=== PATIENT | female | born 2000 | race Caucasian/White ===

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

== ENCOUNTER → 2019-02-14 14:23 | Outpatient (CLI) | payer MEDICAID, SELFPAY ==
[2019-02-13 13:27] VITALS: BMI 40.9
[2019-02-14 14:52] LABS: Bacteria 0 SEEN /hpf (None Seen); Mucous, Urine 0 SEEN /hpf (<or=2+); Red Blood Cells-Urine 0 SEEN /hpf (0-5); White Blood Cells 0 SEEN /hpf (0-5)
[2019-02-14 15:10] LABS: Glucose, Dipstick Normal (Normal); Ketone-Dipstick Negative (Negative); Leukocyte Esterase-Dipstick Negative /ul (Negative); Nitrite-Dipstick Negative (Negative); Occult Blood-Urine Negative /ul (Negative); Protein-Dipstick Negative (Negative); Urine Bilirubin Dipstick Negative (Negative); Urine Urobilinogen Normal (Normal)
[2019-02-14 15:14] LABS: Color, Urine Yellow (Yellow)
[2019-02-14 15:15] LABS: Urine Clarity Clear (Clear)
[2019-02-14 15:23] LABS: Squamous Epithelial Cells - UA 5-10 SEEN /hpf (5-10)
== END ==
PROVIDERS: Referring Provider Physician Assistant Surgical; Visit Provider Physician Assistant Surgical
DX: R10.9 Unspecified abdominal pain (principal)
CPT/HCPCS: 81001; 87086; 87088

== ENCOUNTER 2019-02-15 14:47 | Emergency (ER) | payer MEDICAID, SELFPAY ==
[2019-02-13 13:27] VITALS: BMI 40.9
[2019-02-15 14:48] VITALS: BP 134/74; PULSE 77; RESP 16; TEMP 36.8; O2SAT 99; BMI 40.0
--- NOTE | 2019-02-15 15:09 | ED.VIS.GEN ---
History of Present Illness Chief Complaint: Headache Informant: Patient, Significant Other Onset: Days - Onset of headache Wednesday Context: Gradual Onset Timing: Continuous Quality: Bilateral throbbing head pain Location: Bilateral frontal and parietal Current Severity: Moderate Maximum Severity: Severe Worsened by: Sound Relieved by: Nothing Associated Symptoms: Nausea Narrative: Patient is a 18-year-old woman who presents with bifrontal and biparietal throbbing pain that started Wednesday. The pain is unrelenting. She reports nausea and sonophobia. She states she has history of migraine headaches. She denies double vision, blurred vision or loss of vision. She denies ringing or ears, ear pain or decreased hearing. She denies dental pain. She does report anterior right neck pain. There is no history of trauma. She denies cardiac respiratory symptoms. She denies vomiting or diarrhea. She denies dysuria, frequency, urgency or hematuria. Last normal menses January 14. She states her menstrual cycles are abnormal. She does not report symptoms of . She denies myalgias, arthralgias or back pain. She denies paresthesia, anesthesia motors. She denies problems with balance. She denies problems with speech or swallowing. Prior similar symptoms: Yes Recent Illness/Hospitalization: No - Past Medical History (1) Headache Status: Acute (2) Seasonal allergies Status: Acute Past Medical History - Allergies and Home Meds Allergies/Adverse Reactions: Allergies bee venom protein (honey bee) Allergy (Severe, Verified 02/15/19 14:48) Hives Penicillins Allergy (Verified 02/15/19 14:48) Hives Primary Care Physician: Care Physician,No Primary [Primary Care Provider] - Prior records reviewed: Yes Surgical History: no surgical history Lives: Spouse/ Significant Other Smoking Status: Former smoker Alcohol: None Drugs: None Review of Systems General: Denies: Chills, Fever, Malaise, Subjective, Sweats Eyes: Denies: Visual changes - bilaterally, Blurred Vision - bilaterally, Diplopia ENT: Denies: Bilateral ear pain, Rhinorrhea, Sore throat Cardiovascular: Denies: Chest pain, Palpitations Respiratory: Denies: Dyspnea, Cough, Dyspnea on exertion Gastrointestinal: Reports: Nausea. Denies: Abdominal pain, Vomiting, Diarrhea, Constipation Genitourinary: Denies: Dysuria, Hematuria, Frequency Musculoskeletal: Reports: Neck pain. Denies: Myalgias, Arthralgias, Back pain, Swelling, Extremity Pain Skin: Denies: Rash, Wounds Neurological: Reports: Headache. Denies: Weakness, Numbness Hematologic: Denies: Easy bruising, Easy bleeding Allergy: Denies: Uticaria Physical Exam Vital Signs/Narrative: Vital Signs Temp Pulse Resp BP Pulse Ox 02/15/19 14:48 98.2 F 77 16 134/74 H 99 General: Well nourished, Well developed, No Acute Distress Head: Normocephalic, Atraumatic Eyes: Perrl, EOMI, - - Funduscopic exam reveals normal cup-to-disc ratio with no papilledema and there is no photophobia.. Negative for: Pale conjunctiva, Scleral icterus ENT: Moist mucous membranes, No rhinorrhea, TM's clear Neck: Supple, Nontender, No lymphadenopathy, No JVD Cardiovascular: Regular rate, Regular rhythm, No murmurs, Normal S1, Normal S2 Respiratory: No distress, CTA bilaterally, Chest nontender Abdomen: Soft, Nontender, Nondistended, Normal bowel sounds, No masses Back: Nontender, Normal Inspection Extremities: Nontender, No edema Skin: Normal color, No rash, No Trauma. Negative for: Cyanosis, Diaphoresis, Jaundice Neurological: Alert, Oriented x3, Cranial nerves II-XII grossly intact, Normal Strength, Normal Sensation, Normal DTR, Normal Gait, - - Patient began to laugh during part of the neurologic exam. Psychological: Normal affect Diagnostic/Tx/Re-eval - Medical Decision Making With history of migraine headaches and normal neurologic exam patient was treated with 15 mg of Toradol IV push, 25 mg of Benadryl IV push and 10 mg of Reglan. Imaging was not obtained. Patient was reassessed at 1605. She is smiling. She does appear groggy. This is most likely second Benadryl. She reports 90 to 95% improvement of her headache. She states she feels comfortable going home. ED Disposition - Plan for ED Patient: Disposition: Home or Assisted Living Diagnosis: Headache, migraine, intractable Instructions: ED Headache Migraine Referrals: Care Physician,No Primary [Primary Care Provider] - Salomón Arriola DO [STAFF PHYSICIAN] - 1-2 Weeks
[2019-02-15] MEDS: Ketorolac 30 MG/ML Syringe IV (15:20)
[2019-02-15] MEDS: Metoclopramide 10 MG/2 ML Vial IV (15:20)
[2019-02-15] MEDS: DiphenhydrAMINE 50 MG/ML Syringe 25 MG IV (15:20)
== END 2019-02-15 16:17 | disposition home or self-care (01) ==
PROVIDERS: Emergency Provider Emergency Medicine
DX: G43.919 Migraine, unspecified, intractable, without status migrainosus (principal); Z87.891 Personal history of nicotine dependence
CPT/HCPCS: 96374; 96375; 99283; J7030; A4216

== ENCOUNTER 2019-02-25 13:30 | Emergency (ER) | payer MEDICAID, SELFPAY ==
[2019-02-25 13:32] VITALS: BP 146/94; PULSE 98; RESP 16; TEMP 36.9; O2SAT 97; BMI 38.2
--- NOTE | 2019-02-25 13:43 | RAD_ITS ---
STUDY: X-RAY - LEFT ANKLE REASON FOR EXAM: Female, 18 years old. Twisted ankle TECHNIQUE: 3 view(s) of the ankle. COMPARISON: None. FINDINGS: No definite evidence for an acute fracture or dislocation. Fifth metatarsal base is within normal limits. The anterior process of the calcaneus is within normal limits. IMPRESSION: No evidence for acute fractures or dislocation. Electronically Signed: Lc Cuello, at 14:12 EDT Tel , Service support , RAD/Ankle min 3 Views
--- NOTE | 2019-02-25 13:46 | ED.VISSUMM ---
- ER Visit Summary Date of Service: 02/25/19 Chief Complaint: Left foot and ankle pain History of Present Illness: The patient is a 18 F who fell on 3 basement steps earlier today rolling her left ankle. She has not been able to weight-bear since that time. She denies any other injury from the fall. She did take ibuprofen prior to arrival. Physical Examination: Vital signs unremarkable. Patient sitting upright in bed no acute distress. Left lower extremity examination reveals tenderness of the left ankle, lateral more so than medial. Mild edema is noted. There is no tenderness of the metatarsals. She has strong distal pulses. There is no tenderness at the knee or hip. Test Results: Left ankle x-rays reveal no evidence of fracture. Emergency Department Course and Treatment: Patient already has crutches. She will be given a stirrup splint and may weight-bear as tolerated. She be given a prescription for naproxen. She will be referred to Dr. Arriola to establish primary care if not improving. Treatment Plan: [] Disposition: Discharge Impression: Left ankle sprain This note was generated with [employer] dictation software. It may contain incorrect words, spelling, and punctuation that were not noted in review of the chart prior to signing ED Disposition - Plan for ED Patient: Disposition: Home or Assisted Living Instructions: ED Sprain Ankle W X Ray Prescriptions: Naproxen [Naprosyn] 500 mg PO BID PRN PRN #20 tablet PRN Reason: Pain Referrals: Salomón Arriola DO [STAFF PHYSICIAN] - As Needed
== END 2019-02-25 14:38 | disposition home or self-care (01) ==
PROVIDERS: Emergency Provider Emergency Medicine
DX: S93.402A Sprain of unspecified ligament of left ankle, initial encounter (principal); W10.9XXA Fall (on) (from) unspecified stairs and steps, initial encounter; Y93.9 Activity, unspecified; Y92.9 Unspecified place or not applicable; J45.909 Unspecified asthma, uncomplicated; M19.90 Unspecified osteoarthritis, unspecified site; Z79.899 Other long term (current) drug therapy; Z87.891 Personal history of nicotine dependence
CPT/HCPCS: 73610; 99282

== ENCOUNTER 2019-03-14 12:34 | Emergency (ER) | payer MEDICAID, SELFPAY ==
[2019-03-14 12:35] VITALS: BP 133/93; PULSE 85; RESP 18; TEMP 36.5; O2SAT 97; BMI 39.4
--- NOTE | 2019-03-14 12:54 | ED.VISSUMM ---
- ER Visit Summary Date of Service: 03/14/19 Chief Complaint: Diarrhea History of Present Illness: The patient is a 18 F with diarrhea for the past 5 or 6 days with abdominal cramping. She denies fever or chills. She denies any blood in her stool. She denies any recent travel or antibiotics. She states is been nauseated in the mornings as well and vomited today. Her last menstrual cycle was 2 months ago. She last took her home test a week and a half ago and could not tell if it is positive or negative. Physical Examination: Vital signs unremarkable. Patient sitting upright in bed no acute distress. She is nontoxic-appearing. Head and neck examination normal. Heart is regular rate and rhythm. Lung sounds are clear. Abdomen is soft with minimal mid abdominal tenderness. No guarding or rebound. Active bowel sounds are noted throughout. Test Results: CBC and chemistry studies normal. Urinalysis normal. test is positive. Quant returns at 4855. Emergency Department Course and Treatment: Patient was given IV fluids. She declined anything for nausea while here. Test results were discussed with the patient. She has an appointment with her RETAIL MERCHANDISER TECHNICIAN tomorrow. Treatment Plan: [] Disposition: Discharge Impression: 1. Reported diarrhea 2. First trimester This note was generated with [employer] dictation software. It may contain incorrect words, spelling, and punctuation that were not noted in review of the chart prior to signing ED Disposition - Plan for ED Patient: Disposition: Home or Assisted Living Instructions: , New Dx Referrals: Brady Bazan MD [STAFF PHYSICIAN] - Keep Cruz appointment
[2019-03-14 13:13] LABS: Color, Urine Yellow (Yellow); Glucose, Dipstick Normal (Normal); Ketone-Dipstick Negative (Negative); Leukocyte Esterase-Dipstick Negative /ul (Negative); Mucous, Urine 0 SEEN /hpf (<or=2+); Nitrite-Dipstick Negative (Negative); Occult Blood-Urine Negative /ul (Negative); Protein-Dipstick Negative (Negative); Urine Bilirubin Dipstick Negative (Negative); Urine Clarity Clear (Clear); Urine Urobilinogen Normal (Normal)
[2019-03-14 13:21] LABS: Internal QC Validated? YES +Cl - CLEAR BKGD
[2019-03-14 13:22] LABS: Absolute Lymphocyte Count 1.64 X10^3/ul (0.83-4.51); Absolute Neutrophil Count 4.6 X10^3/uL (2.0-7.7); Basophil# 0.02 X10^3/uL; Basophil% 0.3 % (0-1); Eosinophils% 1.5 % (0-5); Hematocrit 36.6 % (37-47); Hemoglobin 12.1 g/dl (12.0-15.0); Lymphocyte # 1.64 X10^3/ul (4.0); Lymphocyte % 24.2 % (19-41); Mean Corp Hgb Conc 33.1 g/gl (32-36); Mean Corpuscular Hgb 29.7 pg (27.0-32.0); Mean Corpuscular Volume 89.9 fL (81-99); Monocyte# 0.44 X10^3/uL; Monocyte% 6.5 % (0-10); Neutrophil # 4.59 X10^3/uL (2.7-7.7); Neutrophil % 67.5 % (47-70); Platelet Count 209 K/mm3 (150-450); RBC Distribution Width CV 12.7 % (11.6-14.6); RBC Distribution Width SD 41.5 fl (35.1-43.9); Red Blood Count 4.07 M/mm3 (4.2-5.4); White Blood Count 6.8 K/mm3 (4.4-11.0)
[2019-03-14 13:23] LABS: Pregnancy, Serum, hCG Quali. POSITIVE Negative
[2019-03-14 13:26] LABS: POSITIVE COUNT NO; POSITIVE DIFFERENTIAL NO; POSITIVE MORPHOLOGY NO
[2019-03-14 13:26] LABS: Anion Gap 6 (5-15); BUN 12 mg/dL (7-18); BUN/Creat Ratio 13.8 RATIO (10-20); Calcium,Total 9.6 mg/dL (8.5-10.1); Chloride 107 mmol/L (98-107); Creatinine, Serum 0.87 mg/dL (0.55-1.02); EST Glomerular Filtration Rate 89 mL/min (>60); Est Glom Filt Rate - Afr Amer 107 mL/min (>60); Estimated Creatinine Clearance 89.81 ml/min; Glucose 89 mg/dL (74-106); Potassium 3.7 mmol/L (3.5-5.1); Sodium Level 139 mmol/L (136-145)
--- NOTE | 2019-03-14 13:26 | ED.RN ---
LAB CALLED WITH POSITIVE , DR. WALKER INFORMED OF SAME.
[2019-03-14 13:32] LABS: Bacteria RARE /hpf (None Seen); Red Blood Cells-Urine 0-5 SEEN /hpf (0-5); Squamous Epithelial Cells - UA 0-5 SEEN /hpf (5-10); White Blood Cells 0-5 SEEN /hpf (0-5)
[2019-03-14] MEDS: 0.9% Normal Saline 1,000 ML 1000 ML IV (13:47)
[2019-03-14 14:09] LABS: hCG Titer Quant., Serum 4855 mIU/mL (1-3)
[2019-03-14 14:44] VITALS: RESP 14
[2019-03-14 15:10] VITALS: BP 140/73
== END 2019-03-14 15:11 | disposition home or self-care (01) ==
PROVIDERS: Emergency Provider Emergency Medicine
DX: O26.891 Other specified pregnancy related conditions, first trimester (principal); R19.7 Diarrhea, unspecified; Z3A.00 Weeks of gestation of pregnancy not specified
CPT/HCPCS: 80048; 81001; 84702; 84703; 85025; 96360; 99283; J7030; A4216

== ENCOUNTER → 2019-03-15 13:41 | Outpatient (CLI) | payer MEDICAID, SELFPAY ==
[2019-03-14 12:35] VITALS: BMI 39.4
[2019-03-15 17:55] LABS: Chlamydia Trachomatis by PCR Negative (Negative); Neisserai gonorrhoeae by PCR Negative (Negative); Probe Check PASS; Sample Adequacy Control PASS; Specimen Processing Control PASS
== END ==
PROVIDERS: Visit Provider Obstetrics & Gynecology
DX: Z11.3 Encounter for screening for infections with a predominantly sexual mode of transmission (principal)
CPT/HCPCS: 87491; 87591

== ENCOUNTER → 2019-03-30 09:14 | Outpatient (CLI) | payer MEDICAID, SELFPAY ==
[2019-03-14 12:35] VITALS: BMI 39.4
[2019-03-30 10:42] LABS: Color, Urine Yellow (Yellow); Glucose, Dipstick Normal (Normal); Ketone-Dipstick Negative (Negative); Leukocyte Esterase-Dipstick 25 /ul (Negative); Nitrite-Dipstick Negative (Negative); Occult Blood-Urine Negative /ul (Negative); Protein-Dipstick Negative (Negative); Urine Bilirubin Dipstick Negative (Negative); Urine Clarity Clear (Clear); Urine Urobilinogen Normal (Normal)
[2019-03-30 11:11] LABS: Amphetamine Urine VISTA NEGATIVE (<1000 ng/mL); Barbiturate Urine VISTA NEGATIVE (< 200 ng/mL); Benzodiazepine Urine VISTA NEGATIVE (< 200 ng/mL); Cocaine Urine VISTA NEGATIVE (< 300 ng/mL); Ecstacy Urine VISTA NEGATIVE (< 500 ng/mL); Methadone Urine VISTA NEGATIVE (< 300 ng/mL); PCP Urine VISTA NEGATIVE (< 25 ng/mL); THC Urine VISTA POSITIVE (< 50 ng/mL); Thyroid Stim Hormone (TSH) 0.86 uIU/mL (0.358-3.74); Vista UDS pH Range 5
[2019-03-30 11:17] LABS: Absolute Lymphocyte Count 1.58 X10^3/uL (0.83-4.51); Absolute Neutrophil Count 4.6 X10^3/uL (2.0-7.7); Basophil# 0.02 X10^3/uL; Basophil% 0.3 % (0-1); Eosinophil# 0.08 X10^3/uL; Eosinophils% 1.2 % (0-5); Hematocrit 38.4 % (37-47); Hemoglobin 12.6 g/dL (12.0-15.0); Lymphocyte # 1.58 X10^3/ul (4.0); Lymphocyte % 23.6 % (19-41); Mean Corp Hgb Conc 32.8 g/dL (32-36); Mean Corpuscular Hgb 29.9 pg (27.0-32.0); Mean Corpuscular Volume 91.2 fL (81-99); Mean Platelet Vol. 10.3 fl (6.2-12.0); Monocyte# 0.38 X10^3/uL; Monocyte% 5.7 % (0-10); NRBC Flagged by Analyzer 0 % (0-5); Neutrophil # 4.62 X10^3/uL (2.7-7.7); Neutrophil % 68.9 % (47-70); Platelet Count 248 K/mm3 (150-450); RBC Distribution Width CV 12.6 % (11.6-14.6); RBC Distribution Width SD 41.6 fl (35.1-43.9); Red Blood Count 4.21 M/mm3 (4.2-5.4); White Blood Count 6.7 K/mm3 (4.4-11.0)
[2019-03-30 11:52] LABS: HIV - WCH Non-Reactive (Nonreactive); Hepatitis B Surface Antigen Non-Reactive (Nonreactive); Hepatitis C Antibody Non-Reactive (Nonreactive); Rubella IgG 186.7 IU/mL
[2019-03-31 04:56] LABS: Prenatal RPR NONREACTIVE (NONREACTIVE)
== END ==
PROVIDERS: Visit Provider Obstetrics & Gynecology
DX: Z34.81 Encounter for supervision of other normal pregnancy, first trimester (principal)
CPT/HCPCS: 36415; 80307; 81002; 84443; 85025; 86703; 86762; 86803; 87340

== ENCOUNTER → 2019-04-21 15:59 | Outpatient (CLI) | payer MEDICAID, SELFPAY | PROVIDERS: Referring Provider Obstetrics & Gynecology; Visit Provider Obstetrics & Gynecology | DX: O99.89 Other specified diseases and conditions complicating pregnancy, childbirth and the puerperium (principal); R30.0 Dysuria; Z3A.00 Weeks of gestation of pregnancy not specified | CPT/HCPCS: 87086; 87088 ==

== ENCOUNTER 2019-04-23 11:54 | Emergency (ER) | payer MEDICAID, SELFPAY ==
[2019-04-23 11:54] VITALS: BP 146/84; PULSE 78; RESP 16; TEMP 36.6; O2SAT 98; BMI 38.9
--- NOTE | 2019-04-23 12:50 | ED.VISSUMM ---
- ER Visit Summary Date of Service: 04/23/19 Chief Complaint: Nausea and vomiting and dizzy History of Present Illness: The patient is a 19 F who is currently 11 weeks . She is G2, P0 Ab1 with early miscarriage. Patient states her due date 11/08/2019. She is currently seeing Dr. Brady Bazan of [facility]. She states she has had 3-4 episodes of nausea and vomiting for the last 3 to 4 weeks. She feels lightheaded when she stands. She was seen in the office by 1 of the nurses on Wednesday and was told that she was dehydrated. She denies any vaginal bleeding. No fever. No discharge. No abdominal pain. Physical Examination: Well-appearing young female. Vital signs are stable. She is afebrile. She is in no distress. Her initial blood pressure was 146/84. HEENT exam unremarkable. Neck nontender no lymphadenopathy. Lungs clear to auscultation bilaterally. Heart regular rate and rhythm rate about 80 no murmur. Abdomen is soft. Gravid nontender uterus. Normal bowel sounds no peritoneal signs. Patient moving all 4 extremities. Calves are nontender without edema. Neurologically she is awake and alert with no focal motor deficits. Test Results: CBC showed no acute. White count 6 hemoglobin 12. Chemistries normal. Normal creatinine and gap. BUN is 8. UA negative other than ketones. Emergency Department Course and Treatment: Patient clinically mildly dehydrated. She will be treated with p.o. fluids. Nurses were unable to obtain an IV. Currently he did not want any medications for nausea. She has Phenergan at home which she does not believe is working. She is also been on Zofran. Screening labs. Repeat exam patient is doing well at 1600. Discharge to home. She has nausea medications at home. Treatment Plan: Fluids and rest. Nausea medications as needed. Follow-up with [facility]. Disposition: Discharge Impression: Nausea and vomiting approximately 1 week. This note was generated with [employer] software. It may contain incorrect words, spelling, and punctuation that were not noted in review of the chart prior to signing ED Disposition - Plan for ED Patient: Referrals: Care Physician,No Primary [Primary Care Provider] -
[2019-04-23 13:09] LABS: Bacteria 0 SEEN /hpf (None Seen); Mucous, Urine 0 SEEN /hpf (<or=2+); Red Blood Cells-Urine 0 SEEN /hpf (0-5); White Blood Cells 0 SEEN /hpf (0-5)
[2019-04-23 13:15] LABS: Color, Urine Yellow (Yellow); Glucose, Dipstick Normal (Normal); Ketone-Dipstick 15 mg/dl (Negative); Leukocyte Esterase-Dipstick Negative /ul (Negative); Nitrite-Dipstick Negative (Negative); Occult Blood-Urine Negative /ul (Negative); Protein-Dipstick Negative (Negative); Urine Bilirubin Dipstick Negative (Negative); Urine Clarity Clear (Clear); Urine Urobilinogen Normal (Normal)
[2019-04-23 13:24] LABS: Squamous Epithelial Cells - UA 0-5 SEEN /hpf (5-10)
[2019-04-23 14:31] LABS: Absolute Lymphocyte Count 1.81 X10^3/uL (0.83-4.51); Absolute Neutrophil Count 4.3 X10^3/uL (2.0-7.7); Basophil# 0.02 X10^3/uL; Basophil% 0.3 % (0-1); Eosinophil# 0.07 X10^3/uL; Hematocrit 37.1 % (37-47); Hemoglobin 12.3 g/dL (12.0-15.0); Lymphocyte # 1.81 X10^3/ul (4.0); Lymphocyte % 27.1 % (19-41); Mean Corp Hgb Conc 33.2 g/dL (32-36); Mean Corpuscular Volume 90.5 fL (81-99); Mean Platelet Vol. 9.8 fl (6.2-12.0); Monocyte# 0.48 X10^3/uL; Monocyte% 7.2 % (0-10); NRBC Flagged by Analyzer 0 % (0-5); Neutrophil # 4.29 X10^3/uL (2.7-7.7); Neutrophil % 64.3 % (47-70); Platelet Count 230 K/mm3 (150-450); RBC Distribution Width SD 39.9 fl (35.1-43.9); White Blood Count 6.7 K/mm3 (4.4-11.0)
[2019-04-23 14:44] VITALS: BP 133/74; PULSE 83; RESP 16; O2SAT 100
[2019-04-23 15:23] LABS: Anion Gap 6 (5-15); BUN 8 mg/dL (7-18); BUN/Creat Ratio 12.9 RATIO (10-20); Calcium,Total 10.1 mg/dL (8.5-10.1); Chloride 111 mmol/L (98-107); Creatinine, Serum 0.62 mg/dL (0.55-1.02); EST Glomerular Filtration Rate 130 mL/min (>60); Est Glom Filt Rate - Afr Amer 158 mL/min (>60); Estimated Creatinine Clearance 124.99 ml/min; Glucose 71 mg/dL (74-106); Sodium Level 141 mmol/L (136-145)
--- NOTE | 2019-04-23 16:00 | DCINST.ED_ITS ---
ED Disposition - Plan for ED Patient: Disposition: Home or Assisted Living Instructions: VOMITING (5y-Adult) Referrals: Brady Bazan MD [STAFF PHYSICIAN] - As Needed Additional Instructions: Zofran as needed for nausea. Plenty of fluids and rest. Follow-up with your SPLICER APPRENTICE doctor.
[2019-04-23 16:28] VITALS: BP 141/72; PULSE 74; RESP 16; O2SAT 100
== END 2019-04-23 16:29 | disposition home or self-care (01) ==
PROVIDERS: Emergency Provider Emergency Medicine
DX: O21.9 Vomiting of pregnancy, unspecified (principal); F12.90 Cannabis use, unspecified, uncomplicated; O99.321 Drug use complicating pregnancy, first trimester; Z3A.11 11 weeks gestation of pregnancy
CPT/HCPCS: 80048; 81001; 85025; 99283; J7030; A4216

== ENCOUNTER 2019-04-26 14:21 | Emergency (ER) | payer MEDICAID, SELFPAY ==
[2019-04-26 14:22] VITALS: BP 133/75; PULSE 70; RESP 16; TEMP 36.8; O2SAT 95; BMI 38.5
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
[2019-04-26 16:42] VITALS: BP 121/74; PULSE 62; RESP 15; O2SAT 98
== END 2019-04-26 16:43 | disposition home or self-care (01) ==
PROVIDERS: Emergency Provider Emergency Medicine
DX: O99.89 Other specified diseases and conditions complicating pregnancy, childbirth and the puerperium (principal); S30.1XXA Contusion of abdominal wall, initial encounter; S70.12XA Contusion of left thigh, initial encounter; V43.52XA Car driver injured in collision with other type car in traffic accident, initial encounter; Y93.89 Activity, other specified; O99.321 Drug use complicating pregnancy, first trimester; F12.90 Cannabis use, unspecified, uncomplicated; Z3A.12 12 weeks gestation of pregnancy
CPT/HCPCS: 76817; 99283

== ENCOUNTER 2019-05-13 11:13 | Emergency (ER) | payer MEDICAID, SELFPAY ==
[2019-05-13 11:14] VITALS: BP 144/78; PULSE 82; RESP 16; TEMP 36.9; O2SAT 97; BMI 36.8
[2019-05-13] MEDS: 0.9% Normal Saline 1,000 ML 1000 ML IV (11:49)
[2019-05-13] MEDS: Ondansetron 4 MG/2 ML Vial IV (11:49)
[2019-05-13] MEDS: Metoclopramide 10 MG/2 ML Vial IV (11:49)
[2019-05-13 11:53] LABS: Absolute Lymphocyte Count 1.16 X10^3/uL (0.83-4.51); Absolute Neutrophil Count 4.4 X10^3/uL (2.0-7.7); Basophil# 0.01 X10^3/uL; Basophil% 0.2 % (0-1); Eosinophil# 0.03 X10^3/uL; Eosinophils% 0.5 % (0-5); Hematocrit 37.7 % (37-47); Hemoglobin 12.8 g/dL (12.0-15.0); Lymphocyte # 1.16 X10^3/ul (4.0); Lymphocyte % 19.7 % (19-41); Mean Corpuscular Hgb 30.4 pg (27.0-32.0); Mean Corpuscular Volume 89.5 fL (81-99); Mean Platelet Vol. 10.9 fl (6.2-12.0); Monocyte# 0.32 X10^3/uL; Monocyte% 5.4 % (0-10); NRBC Flagged by Analyzer 0 % (0-5); Neutrophil # 4.35 X10^3/uL (2.7-7.7); Platelet Count 250 K/mm3 (150-450); RBC Distribution Width CV 12.4 % (11.6-14.6); RBC Distribution Width SD 40.1 fl (35.1-43.9); Red Blood Count 4.21 M/mm3 (4.2-5.4); White Blood Count 5.9 K/mm3 (4.4-11.0)
[2019-05-13 12:25] LABS: Red Blood Cells-Urine 0 SEEN /hpf (0-5); White Blood Cells 0 SEEN /hpf (0-5)
[2019-05-13 12:27] LABS: Color, Urine Straw (Yellow); Glucose, Dipstick Normal (Normal); Leukocyte Esterase-Dipstick 100 /ul (Negative); Nitrite-Dipstick Negative (Negative); Occult Blood-Urine 10 /ul (Negative); Protein-Dipstick 15 mg/dl (Negative); Specific Gravity, Urine 1.025 (1.002-1.030); Urine Bilirubin Dipstick Negative (Negative); Urine Clarity Sl. Cloudy (Clear); Urine Urobilinogen 1 mg/dl (Normal)
[2019-05-13 12:33] LABS: Ketone-Dipstick 150 mg/dl (Negative)
[2019-05-13 12:36] LABS: Squamous Epithelial Cells - UA 5-10 SEEN /hpf (5-10)
[2019-05-13 12:37] LABS: Bacteria 1+ /hpf (None Seen); Mucous, Urine 1+ /hpf (<or=2+)
[2019-05-13 12:46] LABS: AST(SGOT) 9 U/L (15-37); Alanine Aminotransfer ALT/SGPT 16 U/L (13-56); Albumin, Serum 3.2 g/dL (3.2-5.0); Alkaline Phosphatase 50 U/L (45-117); Anion Gap 4 (5-15); BUN 6 mg/dL (7-18); BUN/Creat Ratio 10.5 RATIO (10-20); Calcium,Total 9.5 mg/dL (8.5-10.1); Chloride 110 mmol/L (98-107); Creatinine, Serum 0.57 mg/dL (0.55-1.02); EST Glomerular Filtration Rate 143 mL/min (>60); Est Glom Filt Rate - Afr Amer 173 mL/min (>60); Estimated Creatinine Clearance 135.95 ml/min; Globulin 3.2 g/dL (2.2-4.2); Glucose 72 mg/dL (74-106); Lipase 60 U/L (73-393); Potassium 3.5 mmol/L (3.5-5.1); Protein, Total 6.4 g/dL (6.4-8.2); Sodium Level 139 mmol/L (136-145)
--- NOTE | 2019-05-13 13:00 | ED.DCSUM_ITS ---
- ER Visit Summary Date of Service: 05/13/19 Chief Complaint: Nausea and vomiting History of Present Illness: The patient is a [address] Bazan. She is a G2, P0 at 14 weeks of . She reports that she has had vomiting throughout her . However, is been worse for the past 3 days. She reports that she is vomited 10-15 times in the past 2 days. No blood or emesis. She reports that she has upper abdominal pain that began this morning. She describes as cramping pain is not a 10 worsened 7-10 currently. Is worsened by movement and relieved by remaining still. Denies any diarrhea. In fact, she reports her last bowel movement was 4 days ago and typically she goes daily. She denies any dysuria or frequency. No vaginal bleeding or discharge. Patient denies any fatty or spicy food intolerance. Physical Examination: Vitals: Stable. Afebrile. General: Well-nourished and well-developed. Head: Normocephalic atraumatic. Neck: Supple, no lymphadenopathy. No JVD. Nontender. Cardiovascular: Regular rate and rhythm. No murmurs. Respiratory: No respiratory distress. Clear to auscultation bilaterally. Abdominal: Soft, mild epigastric tenderness to palpation, nondistended, normal bowel sounds. No guarding, rebound, or peritoneal signs. Gravid uterus. Back: Nontender. Extremities: Nontender, no edema. Skin: Normal color, no rash. Neurologic: Alert and oriented ?3. Cranial nerves II through XII are intact. Normal strength and sensation. Psych: Normal affect. Test Results: Test results show CBC this marked for segment neutrophils of 74. Chem-7 is more for chloride 110, glucose 72, BUN of 6. LFTs show an AST of 9. Lipase is normal. UA shows ketones 1+ bacteria. This was sent for culture. Emergency Department Course and Treatment: Patient was given a liter of normal saline. She was given Zofran and Reglan IV. She is resting much more comfortably. heart tones were 140. Patient reports that she feels much improved and is hungry and would like to go. Treatment Plan: Patient will have Reglan added to her Zofran and Phenergan. Instructed to follow-up with Dr. Bazan in 3 to 5 days if not improving. Return to the emergency department for any worsening symptoms. Disposition: To home in improved and stable condition. Impression: 1. Vomiting. 2. Second trimester . This note was generated with [employer] dictation software. It may contain incorrect words, spelling, and punctuation that were not noted in review of the chart prior to signing ED Disposition - Plan for ED Patient: Disposition: Home or Assisted Living Instructions: Hyperemesis Gravidarum (Severe Morning Sickness) Prescriptions: Metoclopramide [Reglan] 10 mg PO 4X/DAY PRN #20 tab PRN Reason: Headache Prescription Printed Referrals: Brady Bazan MD [STAFF PHYSICIAN] - 3-5 Days
[2019-05-13 13:21] VITALS: BP 120/68; PULSE 75; RESP 18; O2SAT 100
== END 2019-05-13 13:22 | disposition home or self-care (01) ==
LOC: ED 11:32
PROVIDERS: Emergency Provider Emergency Medicine
DX: O21.9 Vomiting of pregnancy, unspecified (principal); O26.892 Other specified pregnancy related conditions, second trimester; R10.10 Upper abdominal pain, unspecified; K59.00 Constipation, unspecified; R51 Headache; Z3A.14 14 weeks gestation of pregnancy
CPT/HCPCS: 80053; 81001; 83690; 85025; 87086; 87088; 96361; 96374; 96375; 99283; J7030; A4216; J2405

== ENCOUNTER → 2019-05-17 11:24 | Outpatient (CLI) | payer MEDICAID, SELFPAY ==
[2019-05-13 11:14] VITALS: BMI 36.8
== END ==
PROVIDERS: Visit Provider Obstetrics & Gynecology
DX: R30.0 Dysuria (principal)
CPT/HCPCS: 87086; 87088

== ENCOUNTER 2019-05-29 08:58 | Emergency (ER) | payer MEDICAID, SELFPAY ==
[2019-05-29 08:59] VITALS: BP 142/92; PULSE 88; RESP 16; TEMP 37; O2SAT 98; BMI 36.8
--- NOTE | 2019-05-29 09:11 | ED.DCSUM_ITS ---
- ER Visit Summary Date of Service: 05/29/19 Chief Complaint: Abdominal pain, back pain History of Present Illness: The patient is a 19 F who has abdominal pain and back pain. This started yesterday and has been ongoing throughout the night as cramping. Nothing makes it better or worse. She is currently 16 weeks gestation. She is G1, P0. She vomited once this morning and had some blood in it so she was concerned. No diarrhea. No urinary symptoms. She has had no vaginal bleeding. She has seen Dr. Bazan for OB and he had her off of work for the past week and half due to low back cramping. She had a monitor at home and said the heart rate was 140 this morning and last night. Physical Examination: Vital signs reviewed. HEENT exam unremarkable. Heart is regular rate and rhythm without murmurs. Lungs are clear to auscultation. Abdomen is soft with suprapubic tenderness to palpation.. Extremities reveal no edema. Skin exam normal. Neurologic exam normal. Test Results: Laboratory studies are unremarkable for chloride of 109. Urinal ysis is no infection. Emergency Department Course and Treatment: I did a bedside ultrasound and it shows good movement with a heart tone of 132. Patient has normal blood work. She will need to follow-up with her OB. Treatment Plan: [] Disposition: Discharge Impression: Abdominal pain, vomiting, This note was generated with [employer] dictation software. It may contain incorrect words, spelling, and punctuation that were not noted in review of the chart prior to signing ED Disposition - Plan for ED Patient: Referrals: Care Physician,No Primary [Primary Care Provider] -
[2019-05-29 10:01] LABS: Color, Urine Yellow (Yellow); Glucose, Dipstick Normal (Normal); Ketone-Dipstick 5 mg/dl (Negative); Leukocyte Esterase-Dipstick 25 /ul (Negative); Nitrite-Dipstick Negative (Negative); Occult Blood-Urine 10 /ul (Negative); Protein-Dipstick 30 mg/dl (Negative); Urine Bilirubin Dipstick Negative (Negative); Urine Clarity Sl. Cloudy (Clear); Urine Urobilinogen Normal (Normal)
[2019-05-29 10:12] LABS: Absolute Neutrophil Count 4.8 X10^3/uL (2.0-7.7); Basophil# 0.02 X10^3/uL; Basophil% 0.3 % (0-1); Eosinophil# 0.07 X10^3/uL; Eosinophils% 1.1 % (0-5); Hematocrit 37.7 % (37-47); Hemoglobin 12.5 g/dL (12.0-15.0); Lymphocyte % 18.8 % (19-41); Mean Corp Hgb Conc 33.2 g/dL (32-36); Mean Corpuscular Hgb 29.9 pg (27.0-32.0); Mean Corpuscular Volume 90.2 fL (81-99); Mean Platelet Vol. 10.2 fl (6.2-12.0); Monocyte# 0.32 X10^3/uL; NRBC Flagged by Analyzer 0 % (0-5); Neutrophil # 4.75 X10^3/uL (2.7-7.7); Neutrophil % 74.5 % (47-70); Platelet Count 201 K/mm3 (150-450); RBC Distribution Width CV 11.9 % (11.6-14.6); Red Blood Count 4.18 M/mm3 (4.2-5.4); White Blood Count 6.4 K/mm3 (4.4-11.0)
[2019-05-29 10:12] LABS: Bacteria 1+ /hpf (None Seen); Mucous, Urine 2+ /hpf (<or=2+); Red Blood Cells-Urine 0-5 SEEN /hpf (0-5); Squamous Epithelial Cells - UA 0-5 SEEN /hpf (5-10); White Blood Cells 0-5 SEEN /hpf (0-5)
[2019-05-29 10:58] VITALS: BP 121/64; PULSE 72; RESP 16; O2SAT 100
[2019-05-29 11:02] LABS: ALB/GLOB Ratio 0.9 RATIO (0.9-2.4); AST(SGOT) 10 U/L (15-37); Alanine Aminotransfer ALT/SGPT 16 U/L (13-56); Albumin, Serum 3.2 g/dL (3.2-5.0); Alkaline Phosphatase 56 U/L (45-117); Anion Gap 7 (5-15); BUN 5 mg/dL (7-18); BUN/Creat Ratio 9.8 RATIO (10-20); Calcium,Total 10.1 mg/dL (8.5-10.1); Chloride 109 mmol/L (98-107); Creatinine, Serum 0.51 mg/dL (0.55-1.02); EST Glomerular Filtration Rate 163 mL/min (>60); Est Glom Filt Rate - Afr Amer 197 mL/min (>60); Estimated Creatinine Clearance 151.94 ml/min; Globulin 3.7 g/dL (2.2-4.2); Glucose 72 mg/dL (74-106); Lipase 58 U/L (73-393); Potassium 3.7 mmol/L (3.5-5.1); Protein, Total 6.9 g/dL (6.4-8.2); Sodium Level 140 mmol/L (136-145)
--- NOTE | 2019-05-29 11:24 | ED.DEP ---
ED Disposition - Plan for ED Patient: Disposition: Home or Assisted Living Instructions: ABDOMINAL PAIN, Unknown Cause, (Female) Referrals: Care Physician,No Primary [Primary Care Provider] -
[2019-05-29 11:39] VITALS: BP 135/71; PULSE 68; RESP 17; O2SAT 99
== END 2019-05-29 11:40 | disposition home or self-care (01) ==
PROVIDERS: Emergency Provider Emergency Medicine
DX: O26.892 Other specified pregnancy related conditions, second trimester (principal); R10.30 Lower abdominal pain, unspecified; O21.9 Vomiting of pregnancy, unspecified; Z3A.16 16 weeks gestation of pregnancy
CPT/HCPCS: 80053; 81001; 83690; 85025; 99285; A4216

== ENCOUNTER 2019-07-23 12:40 | Emergency (ER) | payer MEDICAID, SELFPAY ==
[2019-07-23 12:41] VITALS: BP 133/70; PULSE 78; RESP 17; TEMP 36.7; O2SAT 99; BMI 38.4
[2019-07-23] MEDS: 0.9% Normal Saline 1,000 ML 1000 ML IV (13:41)
[2019-07-23] MEDS: Acetaminophen 325 MG Tablet 650 MG PO (13:42)
[2019-07-23] MEDS: DiphenhydrAMINE 50 MG/ML Syringe 25 MG IV (13:42)
[2019-07-23] MEDS: Metoclopramide 10 MG/2 ML Vial IV (13:42)
[2019-07-23 14:09] LABS: Mucous, Urine 0 SEEN /hpf (<or=2+); Red Blood Cells-Urine 0 SEEN /hpf (0-5)
[2019-07-23 14:17] LABS: Color, Urine Yellow (Yellow); Glucose, Dipstick Normal (Normal); Ketone-Dipstick Negative (Negative); Leukocyte Esterase-Dipstick 25 /ul (Negative); Nitrite-Dipstick Negative (Negative); Occult Blood-Urine Negative /ul (Negative); Protein-Dipstick 15 mg/dl (Negative); Specific Gravity, Urine 1.025 (1.002-1.030); Urine Bilirubin Dipstick Negative (Negative); Urine Clarity Sl. Cloudy (Clear); Urine Urobilinogen Normal (Normal)
[2019-07-23 14:21] LABS: Bacteria RARE /hpf (None Seen); Squamous Epithelial Cells - UA 5-10 SEEN /hpf (5-10)
[2019-07-23 14:22] LABS: White Blood Cells 0-5 SEEN /hpf (0-5)
--- NOTE | 2019-07-23 14:30 | ED.VISSUMM ---
- ER Visit Summary Date of Service: 07/23/19 Chief Complaint: [Headache] History of Present Illness: The patient is a 19 F [presents to the emergency department complaint of a headache that started about noon today. 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 Pain was sharp. Patient and subsequently developed headache and pressure behind her eyes. Patient states that her chest pain is now resolved however she continues to have this headache. Patient is 25 weeks . Patient is G2, P0. She denies any vaginal bleeding. She is feeling the baby move. Patient did have some photophobia associated with a headache. Patient denies any urinary symptoms.] Patient has had prior appendectomy. Physical Examination: [HEENT-PERRLA, EOMI. Cranial nerves II through XII grossly intact. TMs clear. Mucous membranes moist. No adenopathy. Cardiovascular-regular rate and rhythm without murmur or ectopy Lungs-clear to auscultation, chest wall stable without crepitus or subcu emphysema Abdomen-normoactive bowel sounds, soft. Patient has mild tenderness over the suprapubic region. Uterus is gravid and about 5 cm above the umbilicus. Extremities-intact ?4, normal range of motion, normal pulses, atraumatic] Test Results: [ heart tones were 144. Urinalysis was normal.] Emergency Department Course and Treatment: [Patient received a liter normal same fluid bolus as well as Reglan 10 mg IV and Benadryl 25 mill grams IV. Patient received Tylenol 650 mg p.o. and her headache mostly resolved. Patient had no further chest pain while in the emergency department. Patient believes she may have had a small exacerbation of her asthma which she is had in the past.] Treatment Plan: [Case was discussed with DEBONE SUPERVISOR on-call Dr. Ev Arroyo who asked that patient go up to OB so they can monitor the baby for short time.] Disposition: [Discharged to DEBONE SUPERVISOR department] Impression: [Cephalgia-suspect migraine Chest pain-etiology uncertain-resolved Lower abdominal pain] This note was generated with [employer] dictation software. It may contain incorrect words, spelling, and punctuation that were not noted in review of the chart prior to signing ED Disposition - Plan for ED Patient: Referrals: Care Physician,No Primary [Primary Care Provider] -
--- NOTE | 2019-07-23 14:38 | ED.DEP ---
ED Disposition - Plan for ED Patient: Instructions: HEADACHE, Unspecified, CHEST PAIN, Uncertain Cause, ABDOMINAL PAIN, Unknown Cause, (Female) Referrals: Care Physician,No Primary [Primary Care Provider] - Brady Bazan MD [STAFF PHYSICIAN] - 3-5 Days
== END 2019-07-23 14:59 | disposition home or self-care (01) ==
LOC: ED 13:29
PROVIDERS: Emergency Provider Emergency Medicine
DX: O99.89 Other specified diseases and conditions complicating pregnancy, childbirth and the puerperium (principal); R51 Headache; R07.9 Chest pain, unspecified; O26.892 Other specified pregnancy related conditions, second trimester; R10.30 Lower abdominal pain, unspecified; Z3A.25 25 weeks gestation of pregnancy
CPT/HCPCS: 81001; 99282; J7030

== ENCOUNTER 2019-07-23 15:00 | Outpatient (CLI) | payer MEDICAID, SELFPAY ==
[2019-07-23 12:41] VITALS: BMI 38.4
[2019-07-23 15:14] VITALS: BMI 38.6
--- NOTE | 2019-08-01 08:27 | OB.TRI.NOTE ---
- Problem List (1) 24 weeks gestation of Status: Acute History of Present Illness Date of Service: 07/23/19 Was patient seen by the physician?: No Reason For Visit: RULE OUT PRE TERM ABDOMINAL CRAMPING Final ÁNGEL: 11/08/19 Gestational age: 24 Weeks and 4 Days History of Present Illness: 19yo at 24 4/7wga sent from ER for lower abdominal discomfort. Allergies bee venom protein (honey bee) Allergy (Severe, Verified 07/23/19 12:41) Hives Penicillins Allergy (Verified 07/23/19 12:41) Hives - Pertinent Past Medical History Medical History: Past Medical History (Last Reviewed 02/13/19 @ 13:08 by Ale Faye) Arthritis Asthma Shortness of breath history of ear tubes NST - FHR Rate Baby A Baseline: 140 Variability:: Minimal Accelerations:: None Decelerations:: Variable NST Reactive:: Appropriate for gestational age FHR Category:: Category II Uterine Activity:: none Impression/Plan False labor < 37wga -dc home
== END 2019-07-23 15:30 | disposition home or self-care (01) ==
PROVIDERS: Referring Provider Obstetrics & Gynecology; Visit Provider Obstetrics & Gynecology
DX: O47.02 False labor before 37 completed weeks of gestation, second trimester (principal); O99.89 Other specified diseases and conditions complicating pregnancy, childbirth and the puerperium; R51 Headache; R07.9 Chest pain, unspecified; Z3A.25 25 weeks gestation of pregnancy
CPT/HCPCS: 59050; 81001; 99218; 99282; J7030; G0378

== ENCOUNTER 2019-08-06 17:50 | Outpatient (CLI) | payer MEDICAID, SELFPAY ==
[2019-08-06 18:23] VITALS: BMI 38.4
--- NOTE | 2019-08-09 18:15 | OB.TRI.NOTE ---
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; denies VB, LOF, CORDERO, RUQ pain or visual changes; Allergies bee venom protein (honey bee) Allergy (Severe, Verified 07/23/19 12:41) Hives Penicillins Allergy (Verified 07/23/19 12:41) Hives - Pertinent Past Medical History Medical History: Past Medical History (Last Reviewed 02/13/19 @ 13:08 by Ale Faye) Arthritis Asthma Shortness of breath history of ear tubes NST - FHR Rate Baby A Baseline: 145 Variability:: Moderate Accelerations:: 10 x 10 Decelerations:: None, Variable NST Reactive:: Yes, Appropriate for gestational age FHR Category:: Category II Uterine Activity:: None Impression/Plan Impression: 19yo at 26w4d gestation by 8w1d US Round ligament pain Cat 2 FHTs, reassuring, appropriate for gestational age Plan: Discharge home with PTL precautions, increased fluids and rest; frequent rest periods at work
== END 2019-08-06 19:05 | disposition home or self-care (01) ==
LOC: WPOUT 18:07 → WP 18:07
PROVIDERS: Visit Provider Advanced Practice Midwife
DX: O26.892 Other specified pregnancy related conditions, second trimester (principal); R10.30 Lower abdominal pain, unspecified; Z3A.26 26 weeks gestation of pregnancy

== ENCOUNTER 2019-08-11 09:14 | Outpatient (CLI) | payer MEDICAID, SELFPAY ==
[2019-08-11 10:33] VITALS: BMI 39.3
[2019-08-11 13:25] LABS: Amphetamine Urine VISTA NEGATIVE (<1000 ng/mL); Barbiturate Urine VISTA NEGATIVE (< 200 ng/mL); Benzodiazepine Urine VISTA NEGATIVE (< 200 ng/mL); Cocaine Urine VISTA NEGATIVE (< 300 ng/mL); Ecstacy Urine VISTA NEGATIVE (< 500 ng/mL); Methadone Urine VISTA NEGATIVE (< 300 ng/mL); PCP Urine VISTA NEGATIVE (< 25 ng/mL); THC Urine VISTA NEGATIVE (< 50 ng/mL); Vista UDS pH Range 6
--- NOTE | 2019-08-11 14:21 | OB.TRI.NOTE ---
History of Present Illness Date of Service: 08/11/19 Was patient seen by the physician?: Yes Reason For Visit: FALL Date of Service: 08/11/19 Final ÁNGEL: 11/08/19 Final ÁNGEL Source: US <20 weeks Gestational age: 27 Weeks and 2 Days History of Present Illness: Pt states her bedroom is upstairs and the bathroom is downstairs; on the way to the bathroom this morning she lost her footing and fell on her bottom down about 6 steps; she did not hit her abdomen; she complains of soreness in her lower back and R hip; denies VB or LOF, and states active FM Allergies bee venom protein (honey bee) Allergy (Severe, Verified 07/23/19 12:41) Hives Penicillins Allergy (Verified 08/11/19 10:34) Vomiting - Pertinent Past Medical History Medical History: Past Medical History (Last Reviewed 02/13/19 @ 13:08 by Ale Faye) Arthritis Asthma Shortness of breath history of ear tubes Laboratory Studies: Laboratory Tests 08/11/19 Range/Units 12:45 Urine Opiates Screen NEGATIVE (< 300 ng/mL) Urine Methadone Screen NEGATIVE (< 300 ng/mL) Ur Barbiturates Screen NEGATIVE (< 200 ng/mL) Ur Phencyclidine Scrn NEGATIVE (< 25 ng/mL) Ur Amphetamines Screen NEGATIVE (<1000 ng/mL) U Methamphetamin-MDMA NEGATIVE (< 500 ng/mL) U Benzodiazepines Scrn NEGATIVE (< 200 ng/mL) Urine Cocaine Screen NEGATIVE (< 300 ng/mL) U Cannabinoids Screen NEGATIVE (< 50 ng/mL) Ur Drug Screen Comment Physical Exam Vitals: AVSS General: Alert, Oriented x3, Cooperative, No apparent distress HEENT: PERRLA, EOMI Cardiovascular: Regular rate, Regular Rhythm Lungs: Clear to auscultation, Normal air movement Abdomen: Bowel Sounds Present, Soft, Non Tender, Non-Distended, Passing Flatus, Gravid Extremities:: Deep tendon reflexes - 2+ bilaterally lower extremities Neurological: Cranial nerves II-XII grossly intact, Deep Tendon Reflexes 2+/4 and Symmetrical, Neuro grossly intact Estimated gestational size: Appropriate for gestational size Presentation: Unable to assess NST - FHR Rate Baby A Baseline: 145 Variability:: Moderate Accelerations:: 15 x 15, 10 x 10 Decelerations:: Variable NST Reactive:: Yes, Appropriate for gestational age FHR Category:: Category II - Reassurring, appropriate for gestational age Uterine Activity:: None Impression/Plan Impression: 19yo at 27w2d gestation by 8w1d US s/p minor fall w/o VB or LOF, with active FM, A pos, antibody neg blood Physical exam negative for injury; utox negative Cat 2 FHTs, reassuring, appropriate for gestational age Plan: Extended monitoring completed Utox negative Discussed safety measures with patient and SO Tylenol, rest, hot water bottle for minor discomfort Work release through 07-14-2019 Discharge home with PTL precautions, FM awareness, increased rest and fluids; Dr. Bazan aware
== END 2019-08-11 13:30 | disposition home or self-care (01) ==
LOC: WPOUT 09:26 → WP 10:11
PROVIDERS: Referring Provider Advanced Practice Midwife; Visit Provider Advanced Practice Midwife
DX: O99.89 Other specified diseases and conditions complicating pregnancy, childbirth and the puerperium (principal); M54.5 Low back pain; M25.551 Pain in right hip; W10.8XXA Fall (on) (from) other stairs and steps, initial encounter; Z3A.27 27 weeks gestation of pregnancy
CPT/HCPCS: 59025; 59050; 80307; 99218; G0378

== ENCOUNTER → 2019-08-17 10:06 | Outpatient (CLI) | payer MEDICAID, SELFPAY ==
[2019-08-11 10:33] VITALS: BMI 39.3
[2019-08-17 11:03] LABS: Hematocrit 34.8 % (37-47); Hemoglobin 11.5 g/dL (12.0-15.0); Mean Corpuscular Hgb 30.1 pg (27.0-32.0); Mean Corpuscular Volume 91.1 fL (81-99); Mean Platelet Vol. 10.2 fl (6.2-12.0); Platelet Count 220 K/mm3 (150-450); RBC Distribution Width CV 12.9 % (11.6-14.6); RBC Distribution Width SD 42.5 fl (35.1-43.9); Red Blood Count 3.82 M/mm3 (4.2-5.4); White Blood Count 8.7 K/mm3 (4.4-11.0)
[2019-08-17 11:14] LABS: Glucose Challenge Gest 1H 50g 102 mg/dL (70-140)
== END ==
PROVIDERS: Visit Provider Obstetrics & Gynecology
DX: Z34.83 Encounter for supervision of other normal pregnancy, third trimester (principal)
CPT/HCPCS: 36415; 82950; 85027

== ENCOUNTER 2019-08-19 13:20 | Outpatient (CLI) | payer MEDICAID, SELFPAY ==
[2019-08-19 13:39] VITALS: BMI 39.8
[2019-08-19 14:11] LABS: ROM Internal Control Test YES-OK TO RESULT pt. (Internal QC); ROM Patient Test Negative (Negative)
--- NOTE | 2019-08-19 17:41 | OB.TRI.NOTE ---
History of Present Illness Date of Service: 08/19/19 Was patient seen by the physician?: Yes Reason For Visit: RULE OUT ROM Date of Service: 08/19/19 Final ÁNGEL Source: US <20 weeks History of Present Illness: Pt states she felt a gush of fluid when standing up; it didn't feel as if it was urine; states active FM, denies VB Allergies bee venom protein (honey bee) Allergy (Severe, Verified 08/19/19 13:39) Hives Penicillins Allergy (Verified 08/19/19 13:39) Vomiting - Pertinent Past Medical History Medical History: Past Medical History (Last Reviewed 02/13/19 @ 13:08 by Ale Faye) Arthritis Asthma Shortness of breath history of ear tubes Laboratory Studies: Laboratory Tests 08/19/19 Range/Units 13:44 Vag Amniotic Fld Detect Negative (Negative) Physical Exam General: Alert, Oriented x3, Cooperative, No apparent distress HEENT: PERRLA, EOMI Cardiovascular: Regular rate, Regular Rhythm Lungs: Clear to auscultation, Normal air movement Abdomen: Bowel Sounds Present, Soft, Non Tender, Non-Distended, Passing Flatus, Gravid Extremities:: No edema Neurological: Cranial nerves II-XII grossly intact, Deep Tendon Reflexes 2+/4 and Symmetrical, Neuro grossly intact NST - FHR Rate Baby A Baseline: 145 Variability:: Moderate Accelerations:: 15 x 15, 10 x 10 Decelerations:: None NST Reactive:: Yes, Appropriate for gestational age FHR Category:: Category II - reassuring, appropriate for gestational age Uterine Activity:: None Impression/Plan Impression: 19yo at 28w3d gestation by 8w1d US R/O ROM, ROM+ negative Cat 2 FHTs, appropriate for gestational age, reassuring Plan: Discharge home with PTL precautions, FM awareness, increased rest and fluids RTO next scheduled PNV
== END 2019-08-19 14:40 | disposition home or self-care (01) ==
LOC: WPOUT 13:28 → WP 13:29
PROVIDERS: Referring Provider Advanced Practice Midwife; Visit Provider Advanced Practice Midwife
DX: O47.03 False labor before 37 completed weeks of gestation, third trimester (principal); Z3A.28 28 weeks gestation of pregnancy
CPT/HCPCS: 59025; 59050; 84112; 99218; G0378

== ENCOUNTER 2019-08-20 19:15 | Emergency (ER) | payer MEDICAID, SELFPAY ==
[2019-08-19 13:39] VITALS: BMI 39.8
[2019-08-20 19:17] VITALS: BP 133/66; PULSE 91; PULSE 94; RESP 17; RESP 19; TEMP 36.6; O2SAT 97; O2SAT 98; BMI 39.6
--- NOTE | 2019-08-20 19:49 | ED.VIS.GEN ---
History of Present Illness Chief Complaint: Shortness of Breath Informant: Patient Onset: Today Narrative: Patient states that this morning she woke with a slight headache, sore throat, and a sensation that she was losing her voice. She also notes now her chest feels sore to touch feels like she has a pressure. She is 28 weeks . 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 G1, P0. No reported fevers. No rashes. No nausea vomiting diarrhea. No significant cough. Past Medical History - Allergies and Home Meds Allergies/Adverse Reactions: Allergies bee venom protein (honey bee) Allergy (Severe, Verified 08/20/19 19:17) Hives Penicillins Allergy (Verified 08/20/19 19:17) Vomiting Primary Care Physician: Salomón Arriola DO [Primary Care Provider] - Surgical History: no surgical history Smoking Status: Never smoker Review of Systems General: Denies: Chills, Fever, Sweats Eyes: Denies: Visual changes - bilaterally, Diplopia ENT: Reports: Sore throat. Denies: Bilateral ear pain, Left ear pain, Right ear pain, Rhinorrhea Cardiovascular: Reports: Chest pain. Denies: Palpitations Respiratory: Denies: Dyspnea, Cough, Dyspnea on exertion Gastrointestinal: Denies: Abdominal pain, Nausea, Vomiting, Diarrhea, Melena, Hematochezia Genitourinary: Denies: Dysuria, Hematuria, Frequency Musculoskeletal: Denies: Back pain, Extremity Pain Skin: Denies: Rash, Wounds Neurological: Denies: Headache, Weakness, Numbness Psych: Denies: Depression, Anxiety, Suicidal thoughts, Suicidal ideations Endocrine: Denies: Polyuria, Polydipsia, Heat intolerance, Cold intolerance Hematologic: Denies: Easy bruising, Easy bleeding, Lymphadenopathy Allergy: Denies: Uticaria, Swelling of the mouth, Swelling of the tongue Physical Exam Vital Signs/Narrative: Vital Signs Temp Pulse Resp BP Pulse Ox 08/20/19 19:17 97.9 F 91 19 H 133/66 H 97 General: Well nourished, Well developed, No Acute Distress Head: Normocephalic, Atraumatic Eyes: Perrl, EOMI ENT: Moist mucous membranes, No rhinorrhea, - - Patient has cobblestoning of the posterior pharynx.. Negative for: Dry mucous membranes, Nasal congestion Neck: Supple, Nontender Cardiovascular: Regular rate, Regular rhythm, No murmurs Respiratory: No distress, CTA bilaterally, Chest nontender, Chest tenderness - Mild anterior chest wall tenderness that reproduces her chest pain. This is located over the costochondral border. Abdomen: Soft, Nontender, Nondistended, Normal bowel sounds, - - There is a gravid uterus Back: Nontender, Normal Inspection Extremities: Nontender, No edema Skin: Normal color, No rash Neurological: Alert, Oriented x3, Cranial nerves II-XII grossly intact, Normal Strength, Normal Sensation Psychological: Normal affect, Normal Mood Diagnostic/Tx/Re-eval - EKG Initial EKG Interpretation: Sinus Rhythm - Sinus rhythm at a rate of 86 without concerning features of ACS. No ectopy. - Medical Decision Making Patient has a reported sore throat has cobblestoning of the posterior pharynx. Give her a dose of Decadron. Believe her chest pain is most likely due to costochondritis. Decadron should help this. I did also recommend Tylenol. Patient was advised to monitor for fever return if worsening or concerns follow-up with GRAVITY PROSPECTING OPERATOR HELPER at her next appointment is scheduled. ED Disposition - Plan for ED Patient: Disposition: Home or Assisted Living Instructions: URI, Viral, No Abx (Adult), CHEST WALL PAIN, Costochondritis Referrals: Salomón Arriola DO [Primary Care Provider] - As Needed
[2019-08-20] MEDS: dexAMETHasone 4 MG Tablet 10 MG PO (19:53)
[2019-08-20 19:58] VITALS: BP 122/68
--- NOTE | 2019-08-20 20:08 | EKG12_ITS ---
Test Reason : DYSRHYTHMIA Blood Pressure : / mmHG Vent. Rate : 086 BPM Atrial Rate : 086 BPM P-R Int : 154 ms QRS Dur : 084 ms QT Int : 352 ms P-R-T Axes : 071 068 017 degrees QTc Int : 421 ms Normal sinus rhythm Normal ECG Confirmed by SID YANEZ, SOBEIDA ([id number]), publications editor GAVINO AQUINO ([id number]) on 08/23/2019 11:37:45 AM Referred By: Confirmed By:SOBEIDA LAU MD
== END 2019-08-20 19:59 | disposition home or self-care (01) ==
PROVIDERS: Emergency Provider Emergency Medicine; Family Provider Family Medicine; PCP Family Medicine
DX: O99.89 Other specified diseases and conditions complicating pregnancy, childbirth and the puerperium (principal); J02.9 Acute pharyngitis, unspecified; R06.02 Shortness of breath; R07.89 Other chest pain; R51 Headache; Z3A.28 28 weeks gestation of pregnancy
CPT/HCPCS: 93005; 99283

== ENCOUNTER 2019-09-02 00:15 | Outpatient (CLI) | payer MEDICAID, SELFPAY ==
[2019-09-02 01:40] VITALS: BMI 40.1
[2019-09-02 02:21] LABS: Color, Urine Yellow (Yellow); Glucose, Dipstick Normal (Normal); Ketone-Dipstick Negative (Negative); Leukocyte Esterase-Dipstick Negative /ul (Negative); Nitrite-Dipstick Negative (Negative); Occult Blood-Urine Negative /ul (Negative); Protein-Dipstick Negative (Negative); Urine Bilirubin Dipstick Negative (Negative); Urine Clarity Cloudy (Clear); Urine Urobilinogen Normal (Normal)
--- NOTE | 2019-09-16 08:47 | OB.TRI.HP_ITS ---
History of Present Illness Date of Service: 09/02/19 Was patient seen by the physician?: No Reason For Visit: R/O labor Final ÁNGEL: 11/08/19 Final ÁNGEL Source: US <20 weeks Gestational age: 30 w 3 d History of Present Illness: c/o contractions Allergies bee venom protein (honey bee) Allergy (Severe, Verified 08/20/19 19:17) Hives latex Allergy (Verified 09/02/19 01:58) Other Penicillins Allergy (Verified 08/20/19 19:17) Vomiting - Pertinent Past Medical History Medical History: Past Medical History (Last Reviewed 02/13/19 @ 13:08 by Ale Faye) Arthritis Asthma Shortness of breath history of ear tubes Laboratory Studies: Laboratory Tests 09/02/19 Range/Units 02:05 Urine Color Yellow (Yellow) Urine Clarity Cloudy (Clear) Urine pH 6.0 (5.0 - 8.0) Ur Specific [place] 1.020 (1.002-1.030) Urine Protein Negative (Negative) mg/dl Urine Glucose (UA) Normal (Normal) mg/dl Urine Ketones Negative (Negative) mg/dl Urine Occult Blood Negative (Negative) /ul Urine Nitrite Negative (Negative) Urine Bilirubin Negative (Negative) mg/dL Urine Urobilinogen Normal (Normal) mg/dl Ur Leukocyte Esterase Negative (Negative) /ul NST - FHR Rate Baby A Baseline: 130 Variability:: Moderate Accelerations:: 15 x 15 Decelerations:: None NST Reactive:: Yes FHR Category:: Category I Uterine Activity:: 0/10 Impression/Plan False labor, Cat I FHR -d/c home
== END 2019-09-02 02:45 | disposition home or self-care (01) ==
LOC: WPOUT 00:53 → WP 00:59
PROVIDERS: Family Provider Family Medicine; PCP Family Medicine; Referring Provider Obstetrics & Gynecology; Visit Provider Obstetrics & Gynecology
DX: O47.03 False labor before 37 completed weeks of gestation, third trimester (principal); Z3A.30 30 weeks gestation of pregnancy; Z88.0 Allergy status to penicillin; Z91.040 Latex allergy status
CPT/HCPCS: 59025; 59050; 81002; 99218; G0378

== ENCOUNTER 2019-09-30 19:00 | Outpatient (CLI) | payer MEDICAID, SELFPAY ==
[2019-09-30 19:46] VITALS: BMI 40.8
[2019-09-30 20:14] LABS: Mucous, Urine 0 SEEN /hpf (<or=2+)
[2019-09-30 20:22] LABS: Color, Urine Yellow (Yellow); Glucose, Dipstick 50 mg/dl (Normal); Ketone-Dipstick Negative (Negative); Leukocyte Esterase-Dipstick 25 /ul (Negative); Nitrite-Dipstick Negative (Negative); Occult Blood-Urine 10 /ul (Negative); Protein-Dipstick Negative (Negative); Specific Gravity, Urine 1.015 (1.002-1.030); Urine Bilirubin Dipstick Negative (Negative); Urine Clarity Sl. Cloudy (Clear); Urine Urobilinogen Normal (Normal)
[2019-09-30 20:34] LABS: Bacteria RARE /hpf (None Seen); Red Blood Cells-Urine 0-5 SEEN /hpf (0-5); Squamous Epithelial Cells - UA 0-5 SEEN /hpf (5-10); White Blood Cells 0-5 SEEN /hpf (0-5)
--- NOTE | 2019-09-30 20:35 | OB.TRI.NOTE ---
- Problem List (1) 34 weeks gestation of Status: Acute (2) Uterine contractions at greater than 20 weeks of gestation Status: Acute History of Present Illness Date of Service: 09/30/19 Was patient seen by the physician?: Yes Reason For Visit: R/O LABOR Date of Service: 09/30/19 Final ÁNGEL: 11/08/19 Final ÁNGEL Source: US <20 weeks Gestational age: 34 Weeks and 3 Days History of Present Illness: Woke up last night with scant brown vaginal discharge and cramps. Throughout the course of the day cramps became more regular like contractions. At 1630 reports contractions were felt every 8-10 minutes and still having scant brown discharge. Arrived to to rule out pre-term labor. Allergies bee venom protein (honey bee) Allergy (Severe, Verified 09/30/19 19:51) Anaphylaxis latex Allergy (Verified 09/30/19 19:51) Rash Penicillins Allergy (Verified 09/30/19 19:51) Vomiting - Pertinent Past Medical History Medical History: Past Medical History (Last Reviewed 02/13/19 @ 13:08 by Ale Faye) Arthritis Asthma Shortness of breath history of ear tubes Laboratory Studies: Laboratory Tests 09/30/19 Range/Units 20:00 Urine Color Yellow (Yellow) Urine Clarity Sl. Cloudy (Clear) Urine pH 7.0 (5.0 - 8.0) Ur Specific [place] 1.015 (1.002-1.030) Urine Protein Negative (Negative) mg/dl Urine Glucose (UA) 50 H (Normal) mg/dl Urine Ketones Negative (Negative) mg/dl Urine Occult Blood 10 H (Negative) /ul Urine Nitrite Negative (Negative) Urine Bilirubin Negative (Negative) mg/dL Urine Urobilinogen Normal (Normal) mg/dl Ur Leukocyte Esterase 25 H (Negative) /ul Urine RBC 0-5 SEEN (0-5) /hpf Urine WBC 0-5 SEEN (0-5) /hpf Ur Squamous Epith Cells 0-5 SEEN (5-10) /hpf Urine Bacteria RARE (None Seen) /hpf Urine Mucus 0 SEEN (<or=2+) /hpf Review of Systems Constitutional: Denies: Chills, Fever, Weight Change HEENT: Denies: Head Aches, Sinus Congestion, Sinus Drainage Cardiovascular: Denies: Chest Pain, Palpitations Respiratory: Denies: Cough, Shortness of breath at rest, Sputum production Gastrointestinal: Reports: Abdominal Pain - cramping like pain. Denies: Nausea, Vomiting Genitourinary: Denies: Dysuria Gynecological: Reports: Vaginal discharge - brown scant when wiping Musculoskeletal: Denies: Joint Pain, Joint Tenderness Skin: Denies: Rash, Wounds Neurological: Denies: Numbness, Tingling, Focal weakness Psychiatric: Denies: Anxiety, Depression, Homicidal Ideations, Suicidal Ideations Hematologic/ Lymphatic: Denies: Easy Bruising, Easy Bleeding Physical Exam General: Alert, Oriented x3, No apparent distress HEENT: Atraumatic, Normocephalic. 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 Negative for: Vulvar lesions NST - FHR Rate Baby A Baseline: 130 Variability:: Moderate Accelerations:: 15 x 15 Decelerations:: None NST Reactive:: Yes FHR Category:: Category I Uterine Activity:: Irregular Q6-8 minutes Impression/Plan A: 34 weeks gestation SVE per RN .5/thick/mid. Scant brown discharge on glove after cervical check NST baseline 130, +accels, - decels, moderate variability, reactive, Category I tracing UC irregular Q6-8 minutes, palpating mild Admits to not eating anything today d/t cramps, likely dehydrated BPs were elevated, but when using a large cuff now WNL P: Monitor for two hours to get repeat SVE Urine Analysis culture to be sent Observation status
--- NOTE | 2019-09-30 22:27 | PCM.PN.BLA ---
Progress Note S: Per RN notes resting with no needs O: VSS. NST baseline 135, + accels, - decels, moderate variability UC 2-6 minutes irregular SVE by RN cl/thick/high UA +glucose, +occult, + leuks A: No cervical change noted with SVE Category I NST +UA and dehydration, likely cause of uterine irritability P: Rx for Keflex 500mg Q6H x 5D Encourage oral hydration Encourage kick counts Pre-labor education given To follow up in office as needed
== END 2019-09-30 23:00 | disposition home or self-care (01) ==
LOC: WPOUT 19:08 → WP 19:08
PROVIDERS: PCP Family Medicine; Visit Provider Obstetrics & Gynecology
DX: O26.893 Other specified pregnancy related conditions, third trimester (principal); N89.8 Other specified noninflammatory disorders of vagina; Z3A.34 34 weeks gestation of pregnancy
CPT/HCPCS: 59025; 59050; 81001; 99218; G0378

== ENCOUNTER 2019-10-04 17:40 | Outpatient (CLI) | payer MEDICAID, SELFPAY ==
[2019-10-04 18:05] VITALS: BMI 41.3
--- NOTE | 2019-10-04 21:28 | OB.TRI.HP_ITS ---
History of Present Illness Date of Service: 10/04/19 Was patient seen by the physician?: Yes Reason For Visit: R/O LABOR, R/O VAGINAL LEFTY Date of Service: 10/04/19 Final ÁNGEL: 11/08/19 Final ÁNGEL Source: US <20 weeks Gestational age: 35 Weeks and 0 Days History of Present Illness: Pt c/o contractions w/light pink spotting on tissue after toileting at at home; denies itching or burning, but has been on Keflex since Wednesday with 2 days remaining on rx; states just a few minutes ago in hospital noticed bright red spotting on tissue after toileting; Allergies bee venom protein (honey bee) Allergy (Severe, Verified 10/04/19 18:08) Anaphylaxis latex Allergy (Verified 10/04/19 18:08) Rash Penicillins Allergy (Verified 10/04/19 18:08) Vomiting - Pertinent Past Medical History Medical History: Past Medical History (Last Reviewed 02/13/19 @ 13:08 by Ale Faye) Arthritis Asthma Shortness of breath history of ear tubes Physical Exam General: Alert, Oriented x3, Cooperative, No apparent distress HEENT: PERRLA, EOMI Cardiovascular: Regular rate, Regular Rhythm Lungs: Clear to auscultation, Normal air movement Abdomen: Bowel Sounds Present, Soft, Non Tender, Non-Distended, Passing Flatus, Gravid, Obese Neurological: Cranial nerves II-XII grossly intact, Deep Tendon Reflexes 2+/4 and Symmetrical, Neuro grossly intact SEARCH COORDINATOR: Normal external genitalia - internally cevical irritation noted w/sporatic curdy discharge Estimated gestational size: Appropriate for gestational size Presentation: Cephalic Cervix Dilation (cm): 0.5 - externally; unable to reach internal os Effacement (%): 0 - thick, unable to reach internal os NST - FHR Rate Baby A Baseline: 125 Accelerations:: 15 x 15 Decelerations:: None NST Reactive:: Yes, Appropriate for gestational age FHR Category:: Category I Uterine Activity:: Q 3-5 with irritability Impression/Plan Impression: 19yo at [id number] gestation by L=6w0d US r/o labor vs. vaginal lefty vs bacterial vaginosis Cat 1 FHTs No cervical change at this time Plan: Wet prep, vaginal culture for BV done PO hydration Continuous EFM Will recheck cervix in 2 hours
[2019-10-04] MEDS: Miconazole-7 Nitrate Cream 1 APPLIC VAGINAL (23:57)
--- NOTE | 2019-10-05 00:59 | OB.TRI.PN ---
Progress Notes Date of Service: 10/04/19 Progress Note: This is a late entry for 10/04/19, 2350 S: Continues to feel contractions O: Wet prep negative for Ning or BV Cervical irritation and white, curd-like discharge noted by this provider at previous speculum exam FHTs: 120 baseline, moderate variability, + accels, no decels UCs: Irritability pattern with occasional UCs Cervix: 0.5/thick/high, soft, anterior, no change noted A: Uterine irritability Ning by clinical exam Cat 1 FHTs P: Monistat 7, 1 applicator Q HS x 7 days, first dose this evening in hospital Discharge home with FM counts, increased rest and fluids, and pelvic rest RTO for next scheduled PNV tomorrow
== END 2019-10-05 00:10 | disposition home or self-care (01) ==
LOC: WPOUT 17:56 → WP 17:57
PROVIDERS: PCP Family Medicine; Visit Provider Advanced Practice Midwife
DX: O26.853 Spotting complicating pregnancy, third trimester (principal); Z3A.35 35 weeks gestation of pregnancy; Z88.0 Allergy status to penicillin; Z91.040 Latex allergy status; O99.511 Diseases of the respiratory system complicating pregnancy, first trimester; J45.909 Unspecified asthma, uncomplicated; M19.90 Unspecified osteoarthritis, unspecified site
CPT/HCPCS: 59025; 59050; 87205; 99218; G0378

== ENCOUNTER → 2019-10-13 10:23 | Outpatient (CLI) | payer MEDICAID, SELFPAY ==
[2019-10-04 18:05] VITALS: BMI 41.3
== END ==
PROVIDERS: Visit Provider Obstetrics & Gynecology
DX: Z34.83 Encounter for supervision of other normal pregnancy, third trimester (principal); Z36.85 Encounter for antenatal screening for Streptococcus B
CPT/HCPCS: 87081

== ENCOUNTER 2019-10-17 18:00 | Outpatient (CLI) | payer MEDICAID, SELFPAY ==
[2019-10-17 18:53] VITALS: BMI 24.3
[2019-10-17 19:12] LABS: Hematocrit 35.3 % (37-47); Hemoglobin 11.5 g/dL (12.0-15.0); Mean Corp Hgb Conc 32.6 g/dL (32-36); Mean Corpuscular Hgb 28.8 pg (27.0-32.0); Mean Corpuscular Volume 88.3 fL (81-99); Mean Platelet Vol. 10.3 fl (6.2-12.0); Platelet Count 253 K/mm3 (150-450); RBC Distribution Width CV 12.9 % (11.6-14.6); RBC Distribution Width SD 41.6 fl (35.1-43.9); White Blood Count 10.2 K/mm3 (4.4-11.0)
[2019-10-17 19:18] LABS: Protein, Urine (Random) 20.9 mg/dL (<11.9); Protein:Creat Ratio 252 mg/g CRE (0-200)
[2019-10-17 19:20] LABS: AST(SGOT) 6 U/L (15-37); Alanine Aminotransfer ALT/SGPT 13 U/L (13-56); Creatinine, Serum 0.52 mg/dL (0.55-1.02); EST Glomerular Filtration Rate 158 mL/min (>60); Est Glom Filt Rate - Afr Amer 192 mL/min (>60); Estimated Creatinine Clearance 149.02 ml/min; Prothrombin Time (Protime)PT. 12.7 SECONDS (11.7-14.9); Uric Acid 1.9 mg/dL (2.6-6.0)
[2019-10-17 19:21] LABS: Partial Thromboplast Time 26.2 Seconds (24.1-36.2)
--- NOTE | 2019-10-17 19:41 | OB.TRI.NOTE ---
- Problem List (1) 36 weeks gestation of Status: Acute (2) Right upper quadrant abdominal pain affecting Status: Acute (3) Edema during Status: Acute History of Present Illness Date of Service: 10/17/19 Was patient seen by the physician?: Yes Reason For Visit: ADB PAIN Date of Service: 10/17/19 Final ÁNGEL: 11/08/19 Final ÁNGEL Source: US <20 weeks Gestational age: 36 Weeks and 6 Days Allergies bee venom protein (honey bee) Allergy (Severe, Verified 10/17/19 18:44) Anaphylaxis latex Allergy (Verified 10/17/19 18:44) Rash Penicillins Allergy (Verified 10/17/19 18:44) Vomiting - Pertinent Past Medical History Medical History: Past Medical History (Last Reviewed 02/13/19 @ 13:08 by Ale aFye) Arthritis Asthma Shortness of breath history of ear tubes Laboratory Studies: Laboratory Tests 10/17/19 10/17/19 10/17/19 Range/Units 18:50 18:50 18:50 WBC (4.4-11.0) K/mm3 RBC (4.2-5.4) M/mm3 Hgb (12.0-15.0) g/dL Hct (37-47) % MCV (81-99) fL MCH (27.0-32.0) pg MCHC (32-36) g/dL RDW Std Deviation (35.1-43.9) fl RDW Coeff of Jennie (11.6-14.6) % Plt Count (150-450) K/mm3 MPV (6.2-12.0) fl PT 12.7 (11.7-14.9) SECONDS INR 1.0 APTT 26.2 (24.1-36.2) Seconds Creatinine 0.52 L (0.55-1.02) mg/dL Estim Creat Clear Calc 149.02 ml/min Est GFR (MDRD) Af Amer 192 (>60) mL/min Est GFR (MDRD) Non-Af 158 (>60) mL/min Uric Acid 1.9 L (2.6-6.0) mg/dL AST 6 L (15-37) U/L ALT 13 (13-56) U/L U Random Total Protein 20.9 H (<11.9) mg/dL Urine Creatinine 82.90 (NO RANGE EST.) mg/dL Protein/Creatinin Ratio 252 H (0-200) mg/g CRE 10/17/19 Range/Units 18:50 WBC 10.2 (4.4-11.0) K/mm3 RBC 4.00 L (4.2-5.4) M/mm3 Hgb 11.5 L (12.0-15.0) g/dL Hct 35.3 L (37-47) % MCV 88.3 (81-99) fL MCH 28.8 (27.0-32.0) pg MCHC 32.6 (32-36) g/dL RDW Std Deviation 41.6 (35.1-43.9) fl RDW Coeff of Jennie 12.9 (11.6-14.6) % Plt Count 253 (150-450) K/mm3 MPV 10.3 (6.2-12.0) fl PT (11.7-14.9) SECONDS INR APTT (24.1-36.2) Seconds Creatinine (0.55-1.02) mg/dL Estim Creat Clear Calc ml/min Est GFR (MDRD) Af Amer (>60) mL/min Est GFR (MDRD) Non-Af (>60) mL/min Uric Acid (2.6-6.0) mg/dL AST (15-37) U/L ALT (13-56) U/L U Random Total Protein (<11.9) mg/dL Urine Creatinine (NO RANGE EST.) mg/dL Protein/Creatinin Ratio (0-200) mg/g CRE Review of Systems Constitutional: Denies: Chills, Fever, Weight Change HEENT: Denies: Head Aches, Sinus Congestion, Sinus Drainage Cardiovascular: Denies: Chest Pain, Palpitations Respiratory: Denies: Cough, Shortness of breath at rest, Sputum production Gastrointestinal: Reports: Abdominal Pain - RUQ tenderness. Denies: Nausea, Vomiting Genitourinary: Denies: Dysuria Musculoskeletal: Denies: Joint Pain, Joint Tenderness Skin: Denies: Rash, Wounds Neurological: Denies: Numbness, Tingling, Focal weakness Psychiatric: Denies: Anxiety, Depression, Homicidal Ideations, Suicidal Ideations Hematologic/ Lymphatic: Denies: Easy Bruising, Easy Bleeding Physical Exam General: Alert, Oriented x3, No apparent distress HEENT: Atraumatic, Normocephalic. Negative for: Thyromegaly, Lymphadenopathy Cardiovascular: Regular rate, Regular Rhythm Lungs: Clear to auscultation Abdomen: Bowel Sounds Present, Passing Flatus, Gravid, Tender - RUQ Extremities:: Other - +2 pedal edema bilaterally Neurological: Deep Tendon Reflexes 2+/4 and Symmetrical, Neuro grossly intact LEARNING SUPPORT SERVICES DIRECTOR: Normal external genitalia. Negative for: Vulvar lesions NST - FHR Rate Baby A Baseline: 130 Variability:: Moderate Accelerations:: 15 x 15 Decelerations:: None NST Reactive:: Yes FHR Category:: Category I Uterine Activity:: irritability, not felt by patient Impression/Plan A: 36 weeks gestation with RUQ pain with palpation and bilateral pedal edema VSS. BP 135/72 and 132/74 Denies headache or blurred vision. DTR +1. Negative clonus Pre-eclampsia panel negative NST reactive, Category 1, +accels, -decels, moderate variability P: Education on pre-eclampsia symptoms To call/return with worsening edema with pre-e symtpoms Educated on uterine bruising and ligament pain with growing baby To discharge home on bed rest and encouraged increase in fluids. To follow up in office
== END 2019-10-17 19:45 | disposition home or self-care (01) ==
LOC: WPOUT 18:06 → OBT 18:06
PROVIDERS: Visit Provider Obstetrics & Gynecology
DX: O26.893 Other specified pregnancy related conditions, third trimester (principal); Z3A.36 36 weeks gestation of pregnancy; R10.11 Right upper quadrant pain; O12.03 Gestational edema, third trimester; J45.909 Unspecified asthma, uncomplicated; M19.90 Unspecified osteoarthritis, unspecified site
CPT/HCPCS: 36415; 59025; 59050; 82565; 82570; 84156; 84450; 84460; 84550; 85027; 85610; 85730; 99218; G0378

== ENCOUNTER 2019-10-22 14:15 | Outpatient (CLI) | payer MEDICAID, SELFPAY ==
[2019-10-22 15:13] LABS: ROM Internal Control Test YES-OK TO RESULT pt. (Internal QC); ROM Patient Test Negative (Negative)
--- NOTE | 2019-10-23 07:59 | OB.TRI.PN ---
Progress Notes Date of Service: 10/22/19 Laboratory Studies: Laboratory Tests 10/22/19 Range/Units 14:40 Vag Amniotic Fld Detect Negative (Negative)
--- NOTE | 2019-10-23 08:04 | OB.TRI.NOTE ---
History of Present Illness Date of Service: 10/22/19 Reason For Visit: R/O LABOR Date of Service: 10/23/19 Final ÁNGEL: 11/08/19 Final ÁNGEL Source: US <20 weeks Gestational age: 37 Weeks and 4 Days History of Present Illness: Pt states she woke up the morning of her arrival to L&D and noticed a gush of clear fluid; as she continued with her day, she felt that she was continuing to leak; she reported active FM and denied VB Allergies bee venom protein (honey bee) Allergy (Severe, Verified 10/22/19 15:22) Anaphylaxis latex Allergy (Verified 10/22/19 15:22) Rash Penicillins Allergy (Verified 10/22/19 15:22) Vomiting - Pertinent Past Medical History Medical History: Past Medical History (Last Reviewed 02/13/19 @ 13:08 by Ale Faye) Arthritis Asthma Shortness of breath history of ear tubes Laboratory Studies: Laboratory Tests 10/22/19 Range/Units 14:40 Vag Amniotic Fld Detect Negative (Negative) NST - FHR Rate Baby A Baseline: 145 Variability:: Moderate Accelerations:: 15 x 15 Decelerations:: None NST Reactive:: Yes, Appropriate for gestational age FHR Category:: Category I - None Impression/Plan Impression: 19yo at 37w4d by 6w0d US R/o SROM Plan: Rom-Plus negative Discharge home with increased rest, fluids, and FM counts RTO next scheduled PNV
== END 2019-10-22 15:30 | disposition home or self-care (01) ==
LOC: WPOUT 14:43 → WP 14:44
PROVIDERS: Obstetrics & Gynecology; Visit Provider Advanced Practice Midwife
DX: Z34.93 Encounter for supervision of normal pregnancy, unspecified, third trimester (principal)
CPT/HCPCS: 59025; 59050; 84112; 99218; G0378

== ENCOUNTER 2019-10-30 03:11 | Inpatient (IN) | payer MEDICAID, SELFPAY ==
[2019-10-29 22:18] VITALS: BMI 42.3
[2019-10-30] MEDS: Acetaminophen 325 MG Tablet 650 MG PO (00:43)
[2019-10-30 03:08] LABS: ROM Internal Control Test YES-OK TO RESULT pt. (Internal QC); ROM Patient Test POSITIVE (Negative)
[2019-10-30] MEDS: Lactated Ringers 1,000 ML 50 ML IV ×2 (03:22→08:22)
[2019-10-30 03:38] LABS: Absolute Lymphocyte Count 2.43 X10^3/uL (0.83-4.51); Absolute Neutrophil Count 9.2 X10^3/uL (2.0-7.7); Basophil# 0.03 X10^3/uL; Basophil% 0.2 % (0-1); Eosinophil# 0.12 X10^3/uL; Eosinophils% 0.9 % (0-5); Hematocrit 36.4 % (37-47); Hemoglobin 11.8 g/dL (12.0-15.0); Lymphocyte # 2.43 X10^3/ul (4.0); Lymphocyte % 19.2 % (19-41); Mean Corp Hgb Conc 32.4 g/dL (32-36); Mean Corpuscular Hgb 28.4 pg (27.0-32.0); Mean Corpuscular Volume 87.5 fL (81-99); Mean Platelet Vol. 10.2 fl (6.2-12.0); Monocyte# 0.85 X10^3/uL; Monocyte% 6.7 % (0-10); NRBC Flagged by Analyzer 0 % (0-5); Neutrophil # 9.15 X10^3/uL (2.7-7.7); Neutrophil % 72.5 % (47-70); Platelet Count 238 K/mm3 (150-450); RBC Distribution Width CV 13.2 % (11.6-14.6); RBC Distribution Width SD 42.5 fl (35.1-43.9); Red Blood Count 4.16 M/mm3 (4.2-5.4); White Blood Count 12.6 K/mm3 (4.4-11.0)
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
[2019-10-30] MEDS: Oxytocin 30 units/NS 500 ml 30 UNITS/500 ML IV.SOLN IV (13:26)
[2019-10-30] MEDS: fentaNYL 100 MCG/2 ML Ampul IV (15:14)
[2019-10-30] MEDS: Lactated Ringers 500 ML 999 ML IV (16:11)
[2019-10-30] MEDS: fentaNYL-bupivacaine (epidural) 100 ML BAG EPIDURAL ×2 (16:54→21:19)
--- NOTE | 2019-10-30 17:35 | PCM.PN.OB ---
Patient Problems: Active and Suspected Problems (Last Reviewed 02/13/19 @ 13:08 by Ale Faye) 38 weeks gestation of (Acute) Subjective: Comfortable after epidural with everywhere feeling numb except left leg and left groin. Pain in left groin sharp and shooting with contractions and able to feel/move left leg. Objective: VSS. Resting comfortably in bed. UC 2-3 minutes. SVE 4/70/-1 per RN - Physical Exam Vitals/I&O's: Weight: 112 kg Body Mass Index (BMI) 42.3 Intake and Output for Last 24 Hours 10/28/19 10/29/19 10/30/19 23:59 23:59 23:59 Intake Total 2387.10 / 2387.10 Output Total 950 / 950 Balance 1437.10 / 1437.10 General: Alert, Oriented x3, Cooperative HEENT: Atraumatic, PERRLA, EOMI, Normocephalic Neck: Supple, No JVD, Negative Carotid Bruits Lungs: Clear to auscultation, Normal air movement Cardiovascular: Regular rate, No murmurs Abdomen: Bowel Sounds Present, Soft, Non Tender Extremities: No edema, Capillary Refill Less than 3 Seconds Skin: No rashes, No breakdown Musculoskeletal: No Tenderness to Palpation of Joints or Extremities Neurological: Cranial nerves II-XII grossly intact Psych/Mental Status: Normal Affect, Appropriate Laboratory Results 10/30/19 02:55: Vag Amniotic Fld Detect POSITIVE H 10/30/19 03:22: WBC 12.6 H, RBC 4.16 L, Hgb 11.8 L, Hct 36.4 L, MCV 87.5, MCH 28.4, MCHC 32.4, RDW Std Deviation 42.5, RDW Coeff of Jennie 13.2, Plt Count 238, MPV 10.2, Immature Gran % (Auto) 0.500, Neut % (Auto) 72.5 H, Lymph % (Auto) 19.2, Tyler % (Auto) 6.7, Eos % (Auto) 0.9, Baso % (Auto) 0.2, Absolute Neuts (auto) 9.2 H, Absolute Lymphs (auto) 2.43, Nucleated RBC % 0 10/30/19 03:22: Blood Type A POSITIVE, Antibody Screen NEGATIVE Current Medications Acetaminophen (Tylenol) 650 mg PO Q4H PRN PRN PRN Reason: Pain Score 1-10/10 Last Admin: 10/30/19 00:43 Dose: 650 mg Documented by: Acetaminophen (Tylenol) 325 - 650 mg PO Q4H PRN PRN PRN Reason: Pain Score 1-3/10 Al Hydroxide/Mg Hydroxide (Mylanta Ii) 15 - 30 ml PO Q4H PRN PRN PRN Reason: INDIGESTION Citric Acid/Sodium Citrate (Bicitra) 30 ml PO X1 PRN PRN Reason: Section Ephedrine Sulfate () 10 mg IV Q10M PRN PRN Reason: hypotension Ephedrine Sulfate () 10 mg IM Q30M PRN PRN Reason: hypotension Fentanyl Citrate (Sublimaze (100mcg Ampule)) 25 - 50 mcg IV Q2H PRN PRN PRN Reason: Pain Score 4-10/10 Last Admin: 10/30/19 15:14 Dose: 50 mcg Documented by: Fentanyl/Bupivacaine/Sodium Chlor () 0 ml EPIDURAL UD [facility]; Protocol Last Admin: 10/30/19 16:54 Dose: 100 ml Documented by: Lactated Ringer's () 500 mls @ 999 mls/hr IV .Q31M PRN PRN Reason: Epidural Last Infusion: 10/30/19 16:45 Dose: Infused Documented by: Lactated Ringer's () 500 mls @ 999 mls/hr IV .Q31M PRN PRN Reason: Corrective Measures Lactated Ringer's () 1,000 mls @ 50 mls/hr IV .Q20H [facility] Last Infusion: 10/30/19 16:45 Dose: 200 mls/hr Documented by: Oxytocin/Sodium Chloride () 30 units in 500 mls @ 2 mls/hr IV .Q250H [facility] Last Infusion: 10/30/19 17:54 Dose: 8 mls/hr Documented by: Naloxone HCl 4 mg/ Dextrose 504 mls @ 0 mls/hr IV .Q0M PRN; Protocol PRN Reason: To maintain Resp. rate >10 Nalbuphine HCl (Nubain) 5 mg IV Q3H PRN PRN PRN Reason: ITCHING Naloxone HCl (Narcan) 0.02 mg IV Q1M PRN PRN Reason: RR< 10 AND PT UNRESPONSIVE Ondansetron HCl (Zofran) 4 mg IV Q4H PRN PRN PRN Reason: NAUSEA Prochlorperazine Edisylate (Compazine Iv) 10 mg IV Q6H PRN PRN PRN Reason: NAUSEA Sodium Chloride () 10 - 40 ml IV X1 PRN PRN Reason: SALINE FLUSH Medical Necessity - Tobacco Use Smoking Status: Former smoker Assessment/Plan All Active Problems (Last Reviewed 02/13/19 @ 13:08 by Ale Faye) 24 weeks gestation of (Acute) 34 weeks gestation of (Acute) Uterine contractions at greater than 20 weeks of gestation (Acute) 36 weeks gestation of (Acute) Right upper quadrant abdominal pain affecting (Acute) Edema during (Acute) 38 weeks gestation of (Acute) Seasonal allergies (Acute) Sinusitis, acute (Acute) Headache (Acute) Left shoulder strain (Acute) Contusion of left shoulder, initial encounter (Acute) A: Pitocin at 8 SVE /-1 Early active labor P: Continue IOL Watch for fevers with SROM at 0230 today SVE in 4 hours or as needed Patient encouraged to rest and get a nap in for a possible overnight delivery
[2019-10-30] MEDS: Lactated Ringers 1,000 ML 200 ML IV (19:42)
[2019-10-30] MEDS: Oxytocin 30 units/NS 500 ml 30 UNITS/500 ML IV.SOLN 334 UNITS IV (23:49)
--- NOTE | 2019-10-31 00:09 | OP.PCM_ITS ---
Problem List (1) 38 weeks gestation of Status: Acute Vaginal Delivery Maternal Presentation: Active Labor, Spontaneous Rupture of Membranes Method of Induction: Pitocin - augmentation Amniotic Membrane Rupture Type: Spontaneous Rupture of Membrane time: 023 Amniotic Fluid Description: Clear Final ÁNGEL: 11/08/19 Gestational age: 38 Weeks and 6 Days Date of Procedure: 10/30/19 Pre-Operative Diagnosis: 38 weeks gestation, SROM Post-Operative Diagnosis: S/P Surgery/ Procedure Performed: Spontaneous Vaginal Delivery Type of Anesthesia: Epidural Description of Procedure: When patient complete +2 started pushing and investigative writer called to room. Pushed well with spontaneous delivery of head. Viable female infant born with Apgars of 8/9 from vertex to BUSHRA presentation with clear amniotic fluid over an intact perineum. Delayed cord clamping x 1 minute, cord clamped and cut by CNM. Normal three-vessel cord and intact placenta on inspection. Loose body cord x1. Pitocin by IV initiated per protocol. Fundus firm, midline at umbilicus. Three periurethral hematomas with the largest being dime size noted with two labial skid santos. Educated on ice and Ibuprofen. EBL 150. Sponge and instrument count correct x 2. Presentation: Vertex, BUSHRA Placental Delivery Description: Spontaneous Placenta Disposition: [facility] Cord Vessel Description: 3 Vessels Cord Entanglement: - - loose body x1 Drain: Boyd to straight drain Estimated Blood Loss: 150 Infant A gender: Female (1 minute): 8 (5 minute): 9 Episiotomy Description: None Laceration: None Medications given after delivery: IV Pitocin
--- NOTE | 2019-10-31 00:16 | DCINST_ITS ---
<Barbie Aleman - Last Filed: 10/31/19 00:16> Discharge Diet: No Restrictions Discharge Activity: Return to Normal Activity, May not drive while taking narcotic pain medications., May Shower May resume sexual activity in: 4-6 weeks Additional Activity Instructions:: Nothing in the vagina for 4-6 weeks. You may return to work/school in 6 weeks. Call your doctor if your incision/area has: Continuous Slow Oozing, Sudden Increased Bleeding, Increased Pain/ Swelling, Increased Redness, Foul Smelling Discharge Instructions: After a Vaginal , Nutrition While , Understanding Depression, at Home Additional Instructions: If you experience any of the following, contact your healthcare provider. * Bleeding that soaks a pad every hour for 2 hours * Fever 100.4 or higher * Unrelieved incision or abdominal pain * Swelling, redness, discharge or bleeding from your incision or episiotomy site * Your incision begins to separate * Problems urinating (including inability to urinate or burning while urinating). * Visual changes * Severe headache * Flu-like symptoms * Pain or redness in one of both of your breasts * Pain, warmth, tenderness or swelling in your legs, especially the calf area * Frequent nausea and vomiting * Symptoms of depression or anxiety If you experience any of the following, call 911 or go to the nearest Emergency Room. * Chest pain * Problems breathing * Seizure activity * Partial or complete paralysis of a body part, slurred speech, weakness or drooping of the face, or a sudden inability to walk or hold your balance Allergies/Adverse Reactions: Allergies bee venom protein (honey bee) Allergy (Severe, Verified 10/22/19 15:22) Anaphylaxis latex Allergy (Mild, Verified 10/29/19 22:19) Rash Penicillins Adverse Reaction (Verified 10/29/19 22:19) Vomiting Medications to take at Discharge Prenatabs FA 1 tab PO DAILY 08/11/19 Please Follow Up With: Barbie Aleman CNM When: Call to make an appointment with your doctor in 2 weeks. Primary Care Physician: Salomón Arriola DO [Primary Care Provider] - Test Results: Test results from this visit will be discussed in further detail at your follow- up appointment, if applicable. Proposed Discharge Date: 11/01/19 <Rosenda Rios - Last Filed: 11/01/19 07:11> Additional Instructions: If you experience any of the following, contact your healthcare provider. * Bleeding that soaks a pad every hour for 2 hours * Fever 100.4 or higher * Unrelieved incision or abdominal pain * Swelling, redness, discharge or bleeding from your incision or episiotomy site * Your incision begins to separate * Problems urinating (including inability to urinate or burning while urinat ing). * Visual changes * Severe headache * Flu-like symptoms * Pain or redness in one of both of your breasts * Pain, warmth, tenderness or swelling in your legs, especially the calf area * Frequent nausea and vomiting * Symptoms of depression or anxiety If you experience any of the following, call 911 or go to the nearest Emergency Room. * Chest pain * Problems breathing * Seizure activity * Partial or complete paralysis of a body part, slurred speech, weakness or drooping of the face, or a sudden inability to walk or hold your balance Test Results: Test results from this visit will be discussed in further detail at your follow- up appointment, if applicable.
[2019-10-31] MEDS: Ibuprofen 600 MG Tablet PO ×4 (01:02→19:35)
[2019-10-31 02:00] VITALS: BP 112/58; PULSE 75; RESP 18; TEMP 36.9
[2019-10-31] MEDS: 0.9% Saline Lock 10 ML Syringe IV (02:27)
[2019-10-31 04:32] VITALS: BP 118/65; PULSE 87; RESP 16; TEMP 36.9
--- NOTE | 2019-10-31 04:38 | NURSING ---
Late entry: at 0315 patient up for first time post delivery with this RN and [facility] RN. Pt ambulated to bathroom, sat on toilet and performed demond care, changed pad and applied new ice pack. Pt then stood to wash her hands at sink and became dizzy and reported ringing in ears. Pt assisted back to sit on toilet, smelling salt used and pt was given orange juice in crackers. Pt then reports that she was feeling better. Pt transferred to room and was informed to notify RN before going to bathroom for RN assistance. Pt verbalizes understanding.
--- NOTE | 2019-10-31 08:02 | PCM.PN.BLA ---
Progress Note S: Feeling very well with external hemorrhoid pain starting to hurt, but otherwise feeling good. Daughter is well O: VSS. Fundus u/1, firm, midline +Bowel sounds with +flatus Lochia rubra moderate with no clots Periurethral hematomas remain stable A: Post vaginal delivery day #1 female is Normal involution and course P: Educated on: breast feeding holds, proper nutrition and hydration, when to expect milk to come in, engorgement and s/s of mastitis. course of vaginal bleeding and what to expect with lochia rubra at first, to pink, to yellow and then gone. If bleeding increases at home, to rest and it is her body saying she is doing too much. If passing clots larger than a golf ball to call the office. Warning signs of PPD and when to call the office. Stable to discharge home tomorrow To return to office in 2 weeks STROKE Vital Signs/Narrative: Vital Signs Temp Pulse Resp BP 10/31/19 04:32 98.4 F 87 16 118/65
[2019-10-31 09:54] VITALS: BP 134/80; PULSE 72; RESP 16; TEMP 36.4
[2019-10-31 12:30] VITALS: BP 125/54; PULSE 72; RESP 18; TEMP 36.9
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
[2019-10-31 16:00] VITALS: BP 126/62; PULSE 68; RESP 18; TEMP 36.6
[2019-10-31 21:00] VITALS: BP 126/57; PULSE 88; RESP 18; TEMP 36.4
[2019-11-01] MEDS: Ibuprofen 600 MG Tablet PO ×3 (00:36→13:52)
[2019-11-01 01:00] VITALS: BP 130/70; PULSE 83; RESP 16; TEMP 36.4
--- NOTE | 2019-11-01 07:02 | PCM.PN.OB ---
Patient Problems: Active and Suspected Problems (Last Reviewed 02/13/19 @ 13:08 by Ale Faye) 38 weeks gestation of (Acute) Subjective: No issues overnight. Denies heavy lochia. Infant is latching and nursing well, but was up most of the night. c/o painful nipples. Objective: avss - Physical Exam Vitals/I&O's: Vital Signs Temp Pulse Resp BP 97.5 F L 83 16 130/70 H 11/01/19 01:00 11/01/19 01:00 11/01/19 01:00 11/01/19 01:00 Oxygen Delivery Method Room Air Weight: 112 kg Body Mass Index (BMI) 42.3 Intake and Output for Last 24 Hours 10/30/19 10/31/19 11/01/19 23:59 23:59 23:59 Intake Total 3855.90 / 3855.90 1300 / 1300 Output Total 950 / 950 1200 / 1200 Balance 2905.90 / 2905.90 100 / 100 General: Alert, Oriented x3, Cooperative, No apparent distress HEENT: Atraumatic, Normocephalic Lungs: Clear to auscultation, Normal air movement Cardiovascular: Regular rate, Regular Rhythm, Normal S1, Normal S2 Abdomen: Soft, Non Tender, Non-Distended, - - fundus firm and nontender, lochia light Extremities: No edema, No Calf Tenderness Neurological: Neuro grossly intact Psych/Mental Status: Normal Affect, Appropriate, Alert and oriented to time, place, person, mood and affect Comment: breast with left nipple crack Current Medications Acetaminophen (Tylenol) 1,000 mg PO Q8H PRN PRN PRN Reason: Pain Score 1-3/10 Bisacodyl (Dulcolax) 10 mg RECTAL UD PRN PRN Reason: If no BM Dibucaine (Dibucaine) 1 applic TOPICAL TID PRN PRN; Protocol PRN Reason: Discomfort Hydrocortisone (Hytone) 1 applic TOPICAL TID PRN PRN; Protocol PRN Reason: Discomfort Ibuprofen (Motrin) 600 mg PO Q6H MARIELLE Last Admin: 11/01/19 00:36 Dose: 600 mg Documented by: Methylergonovine Maleate (Methergine) 0.2 mg IM X1 PRN PRN Reason: Excess bleeding/uterine atony Ondansetron HCl (Zofran) 4 mg IV Q4H PRN PRN PRN Reason: Nausea Oxycodone HCl (Oxyir) 5 - 10 mg PO Q4H PRN PRN PRN Reason: Pain Score 4-10/10 Senna/Docusate Sodium (Senokot-S, Sarah-Colace) 1 - 2 tablet PO DAILY PRN PRN PRN Reason: Constipation Simethicone (Mylicon) 80 mg PO PCHS PRN PRN Reason: Indigestion/Stomach pain Sodium Chloride () 5 - 15 ml IV UD PRN PRN Reason: SALINE FLUSH Last Admin: 10/31/19 02:27 Dose: 10 ml Documented by: Zolpidem Tartrate (Ambien (Generic)) 5 mg PO QHS PRN PRN PRN Reason: Insomnia Medical Necessity - Tobacco Use Smoking Status: Former smoker Assessment/Plan All Active Problems (Last Reviewed 02/13/19 @ 13:08 by Ale Faye) 38 weeks gestation of (Acute) 24 weeks gestation of (Ruled-out) 34 weeks gestation of (Ruled-out) 36 weeks gestation of (Ruled-out) Contusion of left shoulder, initial encounter (Ruled-out) Edema during (Ruled-out) Headache (Ruled-out) Left shoulder strain (Ruled-out) Right upper quadrant abdominal pain affecting (Ruled-out) Sinusitis, acute (Ruled-out) Uterine contractions at greater than 20 weeks of gestation (Ruled-out) 19yo POD# 2 s/p doing well. -Rh positive -, triple nipple ointment for sore nipples -Routine care -d/c home today
[2019-11-01 08:45] VITALS: BP 125/66; PULSE 70; RESP 16; TEMP 35.8
--- NOTE | 2019-11-01 11:45 | CASEMGMT ---
Social Work Labor and Delivery Summary: Spoke with nursing staff who report that baby has been having low blood sugars. Updated nursing and bee worker that mother of baby (MOB) and father of baby (FOB) both had IEP's school and learn well by one on one or hands on learning. Discussed that parents may potentially benefit from continued education on baby care. Met with MOB and FOB in room today. Also present was FOB's mother Kasey Jiménez. MOB reports last evening was rough as the baby was fussy most of the night and would calm only when MOB was standing and swaying with the baby. MOB reports to be feeling tired today but also perception that baby is doing better today. MOB reports she let FOB sleep last night. Discussed with MOB about need to keep monitoring the baby and MOB reports to be aware and okay with not going home today. MOB reports she told the FOB he could go home as FOB doesn't really like being at the hospital. Kasey voiced that FOB could go home for a couple of hours. Addressed FOB about trying to get some rest, as it appeared to this sql report writer that FOB was tired. Kasey voiced agreement that FOB should get some rest as MOB is going to need you. Provided MOB with pamphlet on Early Head Start and educated MOB to where in pamphlet to find this. Kasey voiced encouragement to MOB and FOB to accept help that outs there like WIC and [facility] as the programs are helpful. Kasey reports she had these programs when FOB was small and the programs helped a lot. Assessment: MOB pleasant, cooperative, smiling, good eye contact. Noted to be staring at the baby in the crib when social media community manager was not dirty talking to MOB. Noted MOB's eyes to start looking tired but still appeared alert to conversation at hand, as evidenced by responsiveness to conversation. MOB was encouraged to get some rest while the baby was resting. Observed Kasey to wrap and swaddle baby, was gentle and appropriate in how handled the baby. Kasey presenting as supportive, as evidenced by encouraging FOB to get rest and telling FOB that he needs to be there to help MOB, as well as encouraging the new parents to accept resources available. FOB was not really engaged in conversation today. Not as alert today as compared to visit on 10.31.2019. Observed FOB sitting on the edge of the couch, head slightly drooping, tired looking with eyes hooded and red, staring. No verbal input provided by FOB today. FOB's motor activity slow and delayed when moving his head. Plan: MOB and baby to home. Anticipate another day in the hospital for baby. Social work to follow and assist. [facility] referral to be made due to substance exposed infant. [facility] [place] to be [place]. -SUNNY Holt, FUNCTIONAL MENTAL DISABILITY TEACHER
[2019-11-01 13:45] VITALS: BP 128/59; PULSE 76; RESP 16; TEMP 36.3
--- NOTE | 2019-11-01 16:59 | CASEMGMT ---
Social Work Labor and Delivery Unit Notified by nursing and jackspooler that baby is being admitted to the [facility]. For continuity of care of families admitted to the [facility], this data analyst report writer also provides social work services to the [facility]. Went to check on mother of baby (MOB) in relation to new developments with baby. Found MOB and father of baby (FOB)'s mother Kasey Jiménez at baby's bedside in the SCN. MOB tearful and when social services manager sat down started to cry. MOB reports having a hard time at the moment. Kasey became tearful as well, and voiced frustration that FOB is not at the hospital to be supportive of MOB and baby. MOB reports FOB has been at home most of the day today. This data analyst report writer broached that FOB seemed quite sleepy today. MOB and Kasey agreed, and MOB voiced that FOB got much more sleep than MOB last night. This data analyst report writer inquired whether MOB is concerned about anything else going on with FOB. MOB denied and reported that FOB just does not like hospitals and to be confined. MOB reports FOB was like this during the too, that when MOB and FOB did not leave the house for a few days the FOB would have to leave and get out of the house. FOB described as restless during the . MOB voiced that this is just hard as FOB is my rock. Supportives listening and encouragement offered to MOB. Talked with MOB about taking this time that baby is not taking feeds by mouth to catch up on some rest. MOB agrees to try and get some sleep. Kasey encouraging of MOB to sleep as well, presenting as supportive and respectful to MOB. Plan: MOB is will discharge as a patient. Baby has been discharged to the [facility]. Social work will continue to follow family in the [facility]. Referrals to [facility] and [facility] to be made (see previous social work documentation this visit for details). -SUNNY Holt, MANAGER TRANSMISSION
--- NOTE | 2019-11-03 08:02 | EKG12_ITS ---
Test Reason : SINUS ARRYTHMIA Blood Pressure : / mmHG Vent. Rate : 083 BPM Atrial Rate : 083 BPM P-R Int : 096 ms QRS Dur : 060 ms QT Int : 314 ms P-R-T Axes : 055 172 045 degrees QTc Int : 368 ms * Pediatric ECG Analysis * Sinus bradycardia Confirmed by JULIA YANEZ, KIRAN ([id number]), image editor GAVINO AQUINO ([id number] on 11/07/2019 1:29:53 PM Referred By: RENETTA Confirmed By:JILLIAN DUMONT MD
== END 2019-11-01 18:00 | disposition home or self-care (01) | DRG 560 ==
LOC: WPOUT 03:12 → WP 03:12
PROVIDERS: Obstetrics & Gynecology; Admitting Provider Obstetrics & Gynecology; PCP Family Medicine; Visit Provider Obstetrics & Gynecology
DX: O69.82X0 Labor and delivery complicated by other cord entanglement, without compression, not applicable or unspecified (principal); Z3A.38 38 weeks gestation of pregnancy; Z37.0 Single live birth; O99.52 Diseases of the respiratory system complicating childbirth; M19.90 Unspecified osteoarthritis, unspecified site; J45.909 Unspecified asthma, uncomplicated; Z87.891 Personal history of nicotine dependence; O71.7 Obstetric hematoma of pelvis
CPT/HCPCS: 59025; 59050; 84112; 85025; 86850; 86900; 86901; 99218; J7120; A4216; G0378

== ENCOUNTER → 2020-08-27 13:44 | Outpatient (CLI) | payer MEDICAID, SELFPAY ==
[2020-08-27 16:01] LABS: Internal QC Validated? YES +Cl - CLEAR BKGD; Pregnancy, Serum, hCG Quali. NEGATIVE Negative
== END ==
PROVIDERS: PCP Family Medicine; Visit Provider Obstetrics & Gynecology
DX: N91.2 Amenorrhea, unspecified (principal)
CPT/HCPCS: 36415; 84703

== ENCOUNTER → 2020-11-29 13:08 | Outpatient (CLI) | payer MEDICAID, SELFPAY ==
[2020-12-03 03:07] LABS: Chlamydia By Nucleic Acid AMP Negative (Negative)
[2020-12-03 09:57] LABS: Gonococcus By Nucleic Acid AMP Negative (Negative)
== END ==
PROVIDERS: PCP Family Medicine; Visit Provider Obstetrics & Gynecology
DX: Z12.4 Encounter for screening for malignant neoplasm of cervix (principal); Z11.3 Encounter for screening for infections with a predominantly sexual mode of transmission
CPT/HCPCS: 87491; 87591; 88175; G0145

== ENCOUNTER → 2020-12-30 14:59 | Outpatient (CLI) | payer MEDICAID, SELFPAY ==
[2020-12-30 15:37] LABS: Absolute Lymphocyte Count 1.63 X10^3/uL (0.83-4.51); Absolute Neutrophil Count 5.7 X10^3/uL (2.0-7.7); Basophil# 0.02 X10^3/uL; Basophil% 0.3 % (0-1); Eosinophil# 0.06 X10^3/uL; Eosinophils% 0.8 % (0-5); Hemoglobin 13.2 g/dL (12.0-15.0); Lymphocyte # 1.63 X10^3/ul (0.83-4.51); Lymphocyte % 21.1 % (19-41); Mean Corp Hgb Conc 31.4 g/dL (32-36); Mean Platelet Vol. 10.4 fl (6.2-12.0); Monocyte# 0.33 X10^3/uL; Monocyte% 4.3 % (0-10); NRBC Flagged by Analyzer 0 % (0-5); Neutrophil # 5.68 X10^3/uL (2.7-7.7); Neutrophil % 73.2 % (47-70); Platelet Count 260 K/mm3 (150-450); RBC Distribution Width CV 12.6 % (11.6-14.6); RBC Distribution Width SD 41.2 fl (35.1-43.9); Red Blood Count 4.72 M/mm3 (4.2-5.4); White Blood Count 7.7 K/mm3 (4.4-11.0)
[2020-12-30 15:38] LABS: Color, Urine Yellow (Yellow); Glucose, Dipstick Normal (Normal); Ketone-Dipstick 15 mg/dl (Negative); Leukocyte Esterase-Dipstick 25 /ul (Negative); Nitrite-Dipstick Negative (Negative); Occult Blood-Urine 10 /ul (Negative); Protein-Dipstick 30 mg/dl (Negative); Urine Bilirubin Dipstick Negative (Negative); Urine Clarity Cloudy (Clear); Urine Urobilinogen 1 mg/dl (Normal)
[2020-12-30 16:03] LABS: Amphetamine Urine VISTA NEGATIVE (<1000 ng/mL); Barbiturate Urine VISTA NEGATIVE (< 200 ng/mL); Benzodiazepine Urine VISTA NEGATIVE (< 200 ng/mL); Cocaine Urine VISTA NEGATIVE (< 300 ng/mL); Ecstacy Urine VISTA NEGATIVE (< 500 ng/mL); Methadone Urine VISTA NEGATIVE (< 300 ng/mL); PCP Urine VISTA NEGATIVE (< 25 ng/mL); THC Urine VISTA POSITIVE (< 50 ng/mL); Vista UDS pH Range 6
[2020-12-30 16:09] LABS: Thyroid Stim Hormone (TSH) 0.53 uIU/mL (0.358-3.74)
[2020-12-31 09:27] LABS: HIV - WCH Non-Reactive (Nonreactive); Hepatitis B Surface Antigen Non-Reactive (Nonreactive); Hepatitis C Antibody Non-Reactive (Nonreactive); Rubella IgG Reactive (Nonreactive); Syphilis Antibodies Non-reactive
== END ==
PROVIDERS: PCP Family Medicine; Visit Provider Obstetrics & Gynecology
DX: Z34.82 Encounter for supervision of other normal pregnancy, second trimester (principal)
CPT/HCPCS: 36415; 80307; 81002; 84443; 85025; 86703; 86762; 86780; 86803; 87340

== ENCOUNTER → 2021-04-02 15:20 | Outpatient (CLI) | payer MEDICAID, SELFPAY ==
[2021-04-02 16:15] LABS: Hematocrit 36.1 % (37-47); Hemoglobin 11.9 g/dL (12.0-15.0); Mean Corpuscular Hgb 29.7 pg (27.0-32.0); Mean Platelet Vol. 10.1 fl (6.2-12.0); Platelet Count 247 K/mm3 (150-450); RBC Distribution Width CV 13.2 % (11.6-14.6); RBC Distribution Width SD 43.5 fl (35.1-43.9); Red Blood Count 4.01 M/mm3 (4.2-5.4); White Blood Count 11.9 K/mm3 (4.4-11.0)
[2021-04-02 16:44] LABS: ALB/GLOB Ratio 0.8 RATIO (0.9-2.4); AST(SGOT) 10 U/L (15-37); Alanine Aminotransfer ALT/SGPT 19 U/L (13-56); Albumin, Serum 3.2 g/dL (3.2-5.0); Alkaline Phosphatase 81 U/L (45-117); Anion Gap 9 (5-15); BUN 9 mg/dL (7-18); BUN/Creat Ratio 18.1 RATIO (10-20); Calcium,Total 9.7 mg/dL (8.5-10.1); Chloride 109 mmol/L (98-107); EST Glomerular Filtration Rate 166 mL/min (>60); Est Glom Filt Rate - Afr Amer 200 mL/min (>60); Globulin 3.9 g/dL (2.2-4.2); Glucose 86 mg/dL (74-106); Potassium 3.5 mmol/L (3.5-5.1); Protein, Total 7.1 g/dL (6.4-8.2); Sodium Level 139 mmol/L (136-145)
== END ==
PROVIDERS: PCP Family Medicine; Visit Provider Obstetrics & Gynecology
DX: Z34.82 Encounter for supervision of other normal pregnancy, second trimester (principal)
CPT/HCPCS: 36415; 80053; 84550; 85027

== ENCOUNTER 2021-04-09 08:08 | Emergency (ER) | payer MEDICAID, SELFPAY ==
[2021-04-09 08:09] VITALS: BP 117/77; PULSE 89; RESP 16; TEMP 36.1; O2SAT 98; BMI 43.9
--- NOTE | 2021-04-09 08:39 | EX.ED.DYSGE1 ---
HPI History of Present Illness Chief Complaint: General Illness Detail of Chief Complaint: Patient denies any complaints. Informant: patient Narrative Narrative: 20-year-old female G4, P1 Ab2 with those being miscarriages. Currently 24 weeks . Her 3-year-old daughter has a viral illness and she does want to be checked out to since she is . She denies any symptoms. She states her due date is July 26 of this year. She herself denies any nausea vomiting diarrhea or fever. No cough or shortness of breath. No abdominal pain. She is feeling the baby move. No dysuria. Prior similar symptoms: No Recent Illness/Hospitalization: No PFSH PFS Medical History (Updated 04/09/21 @ 08:[address] Gurmeet Hough MD) Arthritis Asthma history of ear tubes Shortness of breath Home Medications NK 04/09/21 [History Last Taken Unknown] Allergy/AdvReac Type Severity Reaction Status Date / Time bee venom protein (honey bee) Allergy Severe Anaphylaxis Verified 04/09/21 08:09 latex Allergy Mild Rash Verified 04/09/21 08:09 Penicillins AdvReac Vomiting Verified 04/09/21 08:09 Social History Smoking Status: Former smoker alcohol intake: never ROS ROS ED ROS Narrative Denies recent illness or symptoms. Review of Systems ROS Unobtainable: Denies due to encephalopathy Constitutional Constitutional ED: Denies chills or fever(s) Eyes Eyes: Denies change in vision ENT ENT ED: Denies ear pain or sore throat Cardiovascular Cardiovascular: Denies chest pain Respiratory/Chest Respiratory/Chest: Denies cough or dyspnea Gastrointestinal Gastrointestinal: Denies abdominal pain, diarrhea, nausea or vomiting Genitourinary Genitourinary ED: Denies dysuria or hematuria Musculoskeletal Musculoskeletal: Denies myalgias Integumentary Denies rash Neurologic Neurologic: Denies headache(s) Psychiatric Psychiatric: Denies depression Endocrine Endocrinology: Denies polyuria Allergic/Immunologic Allergic/Immunologic ED: Denies urticaria EXAM Physical Exam Narrative Exam Narrative: Well-appearing 20-year-old female no acute distress. Vital signs stable afebrile. HEENT exam normal. Neck nontender no lymphadenopathy. Lungs are clear. Heart regular rhythm no murmur. Abdomen soft nontender normal bowel sounds no peritoneal signs. Gravid nontender uterus. Patient moving all 4 extremities. Nontender no edema. Back nontender. Neurologically awake alert with no focal motor deficits. Normal exam. Const Vital Signs: 04/09/21 08:09 04/09/21 08:36 Temperature 97.0 F L Temperature Source Temporal Pulse Rate 89 Respiratory Rate 16 Respiratory Effort Normal Non-Labored Respiratory Pattern Normal Blood Pressure 117/77 Blood Pressure Mean 90 Pulse Ox 98 Oxygen Delivery Method Room Air Positive well nourished and well developed; Negative for unkempt General Appearance ED: well developed and NAD; Negative for unkempt HEENT Reports moist mucous membranes Negative for trauma or tenderness Eyes PERRL and EOMs intact bilaterally Neck no lymphadenopathy, supple and no JVD General: Negative for tenderness Chest Wall inspection of chest normal and palpation of chest normal Resp normal respiratory effort and clear to auscultation bilaterally Cardio regular rate, regular rhythm, S1 normal heart sound, S2 normal heart sound and no murmurs GI normal to inspection, nondistended, normoactive bowel sounds, non-tender, non-distended and no masses Auscultation: normoactive bowel sounds Palpation: soft; Negative for tender Back/Spine no CVA tenderness Extremity normal to inspection General Extremety ED: Negative for edema or tenderness General Extremity: Negative for edema Neuro oriented x3 and CN's II-XII intact bilaterally Sensorium / Orientation: alert; Negative for orientation impaired, lethargic or stuporous Motor Exam: strength 5/5 throughout Psych mental status grossly normal Appearance: Negative for unkempt Skin no rashes or lesions noted and no wounds MDM MDM MDM Narrative Medical decision making narrative: 20-year-old female 24 weeks without symptoms. Her 3-year-old child has a viral gastroenteritis and she does want to be evaluated also. Her exam is normal. She needs no testing. Discharge Plan Triage Chief Complaint: General Illness ED Provider: Gurmeet Hough Dx/Rx/DC Orders Clinical Impression: 24 weeks gestation of Prescriptions: No Action NK RF: 0 Primary Care Provider: NOT,DEFINED Referrals: NOT,DEFINED [Primary Care Provider] - Activity Restrictions/Additional Instructions: Follow-up with your BLOW MOLDING MACHINE OPERATOR physician as scheduled. Disposition Disposition: Home, Self Care
== END 2021-04-09 08:58 | disposition home or self-care (01) ==
LOC: ED 08:45
PROVIDERS: Emergency Provider Emergency Medicine
DX: Z34.92 Encounter for supervision of normal pregnancy, unspecified, second trimester (principal); Z87.891 Personal history of nicotine dependence
CPT/HCPCS: 99282

== ENCOUNTER 2021-04-13 21:15 | Outpatient (CLI) | payer MEDICAID, SELFPAY ==
[2021-04-13 21:39] VITALS: BP 133/77; PULSE 81
[2021-04-13 21:43] VITALS: TEMP 36.4; O2SAT 98
[2021-04-13 21:52] VITALS: BMI 43.4
[2021-04-13 22:24] LABS: Red Blood Cells-Urine 0 SEEN /hpf (0-5)
[2021-04-13 22:27] LABS: Color, Urine Yellow (Yellow); Glucose, Dipstick Normal (Normal); Ketone-Dipstick 50 mg/dl (Negative); Leukocyte Esterase-Dipstick 25 /ul (Negative); Nitrite-Dipstick Negative (Negative); Occult Blood-Urine 25 /ul (Negative); Protein-Dipstick 30 mg/dl (Negative); Specific Gravity, Urine 1.025 (1.002-1.030); Urine Bilirubin Dipstick Negative (Negative); Urine Clarity Sl. Cloudy (Clear); Urine Urobilinogen Normal (Normal)
[2021-04-13 22:36] LABS: Bacteria 1+ /hpf (None Seen); Mucous, Urine 2+ /hpf (<or=2+); Squamous Epithelial Cells - UA 5-10 SEEN /hpf (5-10); White Blood Cells 0-5 SEEN /hpf (0-5)
--- NOTE | 2021-04-13 23:55 | OB.TRI.NOTE ---
HPI - General HPI Narrative MAXWELL DICKEY, is a 21 F who presents with c/o contractions PFSH PFSH Medical History (Updated 04/21/21 @ 18:[address] Rosenda Arroyo MD) Arthritis Asthma history of ear tubes Shortness of breath Home Medications 1 tab PO/SL DAILY 04/13/21 [History Last Taken 04/13/21 08:00] Allergy/AdvReac Type Severity Reaction Status Date / Time bee venom protein (honey bee) Allergy Severe Anaphylaxis Verified 04/13/21 21:55 latex Allergy Mild Rash Verified 04/09/21 08:09 Penicillins AdvReac Vomiting Verified 04/13/21 21:55 Social History Smoking Status: Former smoker alcohol intake: never History Elective abortions Hx Para 0 Spontaneous abortions Hx # Term Pregnancies Ectopic pregnancies Hx # Pregnancies Multiple births # of living children NST FHR Rate Baby A Baseline: 145 Variability:: Minimal Accelerations:: None Decelerations:: Variable NST Reactive:: Appropriate for gestational age FHR Category:: Category II Uterine Activity:: 0/10 Assessment & Plan (1) 25 weeks gestation of : PLAN: NST AGA No evidence of labor D/C home
== END 2021-04-13 23:05 | disposition home or self-care (01) ==
LOC: WPOUT 21:32 → WP 21:33
PROVIDERS: Visit Provider Obstetrics & Gynecology
DX: O47.02 False labor before 37 completed weeks of gestation, second trimester (principal); Z3A.25 25 weeks gestation of pregnancy; Z87.891 Personal history of nicotine dependence
CPT/HCPCS: 59025; 59050; 81001; 87086; 87088; 99218; G0378

== ENCOUNTER → 2021-05-07 15:13 | Outpatient (CLI) | payer MEDICAID, SELFPAY ==
[2021-05-07 17:45] LABS: Hematocrit 35.3 % (37-47); Hemoglobin 11.4 g/dL (12.0-15.0); Mean Corp Hgb Conc 32.3 g/dL (32-36); Mean Corpuscular Hgb 29.1 pg (27.0-32.0); Mean Corpuscular Volume 90.1 fL (81-99); Mean Platelet Vol. 10.7 fl (6.2-12.0); Platelet Count 262 K/mm3 (150-450); RBC Distribution Width CV 12.7 % (11.6-14.6); RBC Distribution Width SD 41.7 fl (35.1-43.9); Red Blood Count 3.92 M/mm3 (4.2-5.4); White Blood Count 10.6 K/mm3 (4.4-11.0)
[2021-05-07 17:53] LABS: Glucose Challenge Gest 1H 50g 157 mg/dL (70-140)
== END ==
PROVIDERS: Visit Provider Obstetrics & Gynecology
DX: Z34.83 Encounter for supervision of other normal pregnancy, third trimester (principal)
CPT/HCPCS: 36415; 82950; 85027

== ENCOUNTER → 2021-05-12 09:50 | Outpatient (CLI) | payer MEDICAID, SELFPAY ==
[2021-05-12 10:56] LABS: Glucose GTT-Gestation. Fasting 74 mg/dL (<105)
[2021-05-12 11:56] LABS: Glucose GTT-Gestational 1 Hr 152 mg/dL (<190)
[2021-05-12 13:02] LABS: Glucose GTT-Gestational 2 Hr 121 mg/dL (<165)
[2021-05-12 14:02] LABS: Glucose GTT-Gestational 3 Hr 107 L (<145)
== END ==
PROVIDERS: Referring Provider Obstetrics & Gynecology; Visit Provider Obstetrics & Gynecology
DX: O24.912 Unspecified diabetes mellitus in pregnancy, second trimester (principal); Z3A.00 Weeks of gestation of pregnancy not specified
CPT/HCPCS: 36415; 82951; 82952

== ENCOUNTER 2021-05-20 12:00 | Outpatient (CLI) | payer MEDICAID, SELFPAY ==
[2021-05-20 12:16] VITALS: BP 120/78; PULSE 97; TEMP 36.6; O2SAT 97
[2021-05-20 12:20] VITALS: BMI 44.2
[2021-05-20 12:50] LABS: Mucous, Urine 0 SEEN /hpf (<or=2+)
[2021-05-20 12:52] LABS: Color, Urine Yellow (Yellow); Glucose, Dipstick Normal (Normal); Ketone-Dipstick Negative (Negative); Leukocyte Esterase-Dipstick Negative /ul (Negative); Nitrite-Dipstick Negative (Negative); Occult Blood-Urine Negative /ul (Negative); Protein-Dipstick Negative (Negative); Urine Bilirubin Dipstick Negative (Negative); Urine Clarity Sl. Cloudy (Clear); Urine Urobilinogen Normal (Normal)
[2021-05-20 12:58] LABS: Bacteria 3+ /hpf (None Seen); Red Blood Cells-Urine 0-5 SEEN /hpf (0-5); Squamous Epithelial Cells - UA 5-10 SEEN /hpf (5-10); White Blood Cells 0-5 SEEN /hpf (0-5)
[2021-05-20 13:40] LABS: Fetal Fibronectin Negative
--- NOTE | 2021-05-20 20:01 | OB.TRI.NOTE ---
HPI - General HPI Narrative MAXWELL DICKEY, is a 21 F who presents at 30 3/7 wga ([facility]NGEL 07/26/21) with c/o painful contractions. No LOF or VB. + FM. PFSH PFSH Medical History (Updated 05/21/21 @ 08:[address] Rosenda Arroyo MD) Arthritis Asthma history of ear tubes Seasonal allergies Shortness of breath Home Medications 1 tab PO/SL DAILY 04/13/21 [History Last Taken 04/13/21 08:00] albuterol sulfate PRN PRN 05/20/21 [History Last Taken Unknown] albuterol sulfate [ProAir HFA] 1 - 2 puff INHALATION DAILY PRN 05/20/21 [History Last Taken Unknown] ondansetron HCl [Zofran] 4 mg PO Q8H PRN PRN 05/20/21 [History Last Taken Unknown] Allergy/AdvReac Type Severity Reaction Status Date / Time bee venom protein (honey bee) Allergy Severe Anaphylaxis Verified 04/13/21 21:55 latex Allergy Mild Rash Verified 04/09/21 08:09 Penicillins AdvReac Vomiting Verified 04/13/21 21:55 Social History Smoking Status: Former smoker alcohol intake: never History 3 Elective abortions Hx Para 1 Spontaneous abortions Hx # Term Pregnancies 1 Ectopic pregnancies Hx # Pregnancies Multiple births # of living children Physical Exam Const alert, oriented x3 and no apparent distress Resp normal respiratory effort GI soft to palpation, non-tender and non-distended Inspection: gravid Narrative: Fundus nontender, no suprapubic tenderness - SVE ft/50/-4, midposition, moderate NST FHR Rate Baby A Baseline: 130 Variability:: Moderate Accelerations:: 15 x 15 Decelerations:: None NST Reactive:: Yes and Appropriate for gestational age FHR Category:: Category I Uterine Activity:: 11/20 Assessment & Plan (1) : QUALIFIERS: Weeks of gestation: 30 weeks Qualified Code(s): Z3A.30 - 30 weeks gestation of (2) False labor before 37 completed weeks of gestation: QUALIFIERS: Trimester: third trimester Qualified Code(s): O47.03 - False labor before 37 completed weeks of gestation, third trimester PLAN: FFN negative SVE unchanged x 2 Will treat for UTI empirically d/c home
== END 2021-05-20 15:30 | disposition home or self-care (01) ==
LOC: WPOUT 12:06 → WP 12:07
PROVIDERS: Visit Provider Obstetrics & Gynecology
DX: O47.03 False labor before 37 completed weeks of gestation, third trimester (principal); O99.513 Diseases of the respiratory system complicating pregnancy, third trimester; J45.909 Unspecified asthma, uncomplicated; Z3A.30 30 weeks gestation of pregnancy; Z79.899 Other long term (current) drug therapy; Z87.891 Personal history of nicotine dependence
CPT/HCPCS: 59025; 59050; 81001; 82731; 87086; 87088; 99218; G0378

== ENCOUNTER → 2021-05-29 12:20 | Outpatient (CLI) | payer MEDICAID, SELFPAY | PROVIDERS: Referring Provider Physician Assistant; Visit Provider Physician Assistant | DX: Z11.52 Encounter for screening for COVID-19 (principal) ==

== ENCOUNTER → 2021-05-29 14:50 | Outpatient (CLI) | payer MEDICAID, SELFPAY | PROVIDERS: Visit Provider Physician Assistant | DX: Z11.52 Encounter for screening for COVID-19 (principal) | CPT/HCPCS: 87635; U0005; U0003 ==

== ENCOUNTER 2021-06-06 10:46 | Emergency (ER) | payer MEDICAID, SELFPAY ==
[2021-06-06 10:49] VITALS: BP 115/69; PULSE 107; RESP 14; TEMP 36.1; O2SAT 97; BMI 44.7
--- NOTE | 2021-06-06 11:43 | EKG12_ITS ---
Test Reason : Blood Pressure : / mmHG Vent. Rate : 091 BPM Atrial Rate : 091 BPM P-R Int : 156 ms QRS Dur : 080 ms QT Int : 336 ms P-R-T Axes : 006 066 010 degrees QTc Int : 413 ms Normal sinus rhythm Nonspecific T wave abnormality Confirmed by CATHERINE YANEZ, UNA ([id number]), fan mail editor FE VALDES ([id number]) on 06/09/2021 11:47:01 AM Referred By: MICHELLE Confirmed By:UNA ALEXANDER MD
[2021-06-06 12:26] LABS: Absolute Lymphocyte Count 1.37 X10^3/uL (0.83-4.51); Absolute Neutrophil Count 4.8 X10^3/uL (2.0-7.7); Basophil# 0.02 X10^3/uL; Basophil% 0.3 % (0-1); Eosinophil# 0.05 X10^3/uL; Eosinophils% 0.8 % (0-5); Hematocrit 36.5 % (37-47); Hemoglobin 11.8 g/dL (12.0-15.0); Lymphocyte # 1.37 X10^3/ul (0.83-4.51); Lymphocyte % 20.7 % (19-41); Mean Corp Hgb Conc 32.3 g/dL (32-36); Mean Corpuscular Hgb 29.1 pg (27.0-32.0); Mean Corpuscular Volume 90.1 fL (81-99); Monocyte# 0.37 X10^3/uL; Monocyte% 5.6 % (0-10); NRBC Flagged by Analyzer 0 % (0-5); Neutrophil # 4.76 X10^3/uL (2.7-7.7); Platelet Count 204 K/mm3 (150-450); RBC Distribution Width CV 12.7 % (11.6-14.6); RBC Distribution Width SD 42.2 fl (35.1-43.9); Red Blood Count 4.05 M/mm3 (4.2-5.4); White Blood Count 6.6 K/mm3 (4.4-11.0)
[2021-06-06 12:42] LABS: D-Dimer Quantitative (DVT/PE) 1.55 FEU/ug/m (0.27-0.49)
--- NOTE | 2021-06-06 12:43 | CT_ITS ---
STUDY: CTA CHEST REASON FOR EXAM: Female, 21 years old. Elevated D-dimer -- Shield abdomen, 33 weeks RADIATION DOSAGE (If Supplied By Facility): CTDIvol = ( 11.37 ) mGy, DLP = ( 451.02 ) mGycm TECHNIQUE: The examination was performed with the intravenous administration of IV 100mL Isovue-300. Post-processing of the angiographic images was performed, with multiplanar reformation and 3D reconstruction. Individualized dose optimization techniques were used for this CT. COMPARISON: None. FINDINGS: Small benign-appearing bilateral axillary lymph nodes. Normal enhancement of the main pulmonary artery and right and left pulmonary arteries. Normal enhancement of the bilateral peripheral pulmonary arteries. There is no demonstrated pulmonary embolism. Normal thoracic aorta and visualized great vessels. There is no demonstrated aortic dissection. Normal heart and pericardium. Normal mediastinum. Normal hilar regions. Normal visualized trachea and bronchi. The lungs are well expanded. Normal pulmonary parenchyma. Normal pleura. Normal chest wall structures. Normal osseous structures. Normal visualized upper abdomen. CT/CTA Chest W/WO Contrast IMPRESSION: Normal CTA chest examination, without a demonstrated pulmonary embolism or arterial dissection. Electronically Signed: Vasiliy Kim MD at 13:17 EDT , Service support ,
[2021-06-06 12:44] LABS: ALB/GLOB Ratio 0.6 RATIO (0.9-2.4); AST(SGOT) 10 U/L (15-37); Alanine Aminotransfer ALT/SGPT 13 U/L (13-56); Albumin, Serum 2.4 g/dL (3.2-5.0); Alkaline Phosphatase 97 U/L (45-117); Anion Gap 5 (5-15); BUN 8 mg/dL (7-18); BUN/Creat Ratio 16.6 RATIO (10-20); Calcium,Total 9.5 mg/dL (8.5-10.1); Chloride 109 mmol/L (98-107); Creatinine, Serum 0.48 mg/dL (0.55-1.02); EST Glomerular Filtration Rate 171 mL/min (>60); Est Glom Filt Rate - Afr Amer 207 mL/min (>60); Estimated Creatinine Clearance 152.08 ml/min; Glucose 95 mg/dL (74-106); Potassium 3.6 mmol/L (3.5-5.1); Protein, Total 6.4 g/dL (6.4-8.2); Sodium Level 137 mmol/L (136-145)
--- NOTE | 2021-06-06 12:58 | EDS_ITS ---
HPI History of Present Illness Chief Complaint: Shortness of Breath Informant: patient Onset/Context/Timing Onset: Yesterday Context: gradual Timing: Continuous Quality: Positive for Dyspnea on exertion, Orthopnea and Wheezing Worsened by: Exertion and Lying flat Relieved by: Nothing Associated Symptoms cough, rhinorrhea and ear pain; Negative for fever, sore throat, chills, clear sputum, white sputum, yellow sputum or green sputum Chest Pain: Positive for Sharp and Pressure Narrative Narrative: Patient presents with shortness of breath that began yesterday. Patient states it is getting progressively worse. Patient admits to some pressure over her chest. Patient states it is also sharp at times. Patient admits to a cough but denies any sputum production. Patient admits to some rhinorrhea and ear pain. Patient states her breathing is worse with any exertion. Patient states nothing seems to help. Patient is 33 weeks . [facility] Medical History Arthritis Asthma Encounter for screening for COVID-19 history of ear tubes Seasonal allergies Shortness of breath Home Medications NK 05/29/21 [History Last Taken Unknown] Allergy/AdvReac Type Severity Reaction Status Date / Time bee venom protein (honey bee) Allergy Severe Anaphylaxis Verified 06/06/21 10:48 latex Allergy Mild Rash Verified 06/06/21 10:48 Penicillins AdvReac Vomiting Verified 06/06/21 10:48 Social History Smoking Status: Former smoker alcohol intake: never ROS ROS ED Constitutional Constitutional ED: Denies chills or fever(s) Eyes Eyes: Denies blurry vision or change in vision ENT ENT ED: Reports ear pain and rhinorrhea; Denies sore throat Cardiovascular Cardiovascular: Reports chest pain; Denies palpitations Respiratory/Chest Respiratory/Chest: Reports cough and dyspnea Gastrointestinal Gastrointestinal: Denies nausea or vomiting Genitourinary Genitourinary ED: Denies dysuria or hematuria Musculoskeletal Musculoskeletal: Denies back pain or neck pain Integumentary Denies abscess or rash Neurologic Neurologic: Denies headache(s) or weakness Allergic/Immunologic Allergic/Immunologic ED: Denies mouth swelling or urticaria EXAM Physical Exam Const Vital Signs: 06/06/21 10:49 Temperature 96.9 F L Temperature Source Temporal Pulse Rate 107 H Respiratory Rate 14 Blood Pressure 115/69 Blood Pressure Mean 84 Pulse Ox 97 Oxygen Delivery Method Room Air Positive well nourished and well developed General Appearance ED: well developed HEENT Reports moist mucous membranes Neck supple and no JVD Resp normal respiratory effort Auscultation: wheezes scattered wheezes Cardio regular rate and regular rhythm GI non-tender and non-distended Auscultation: normoactive bowel sounds Palpation: soft Extremity normal to inspection General Extremety ED: Negative for edema or tenderness General Extremity: Negative for edema Neuro oriented x3, CN's II-XII intact bilaterally and no sensory deficits noted Sensorium / Orientation: alert Motor Exam: strength 5/5 throughout Psych mental status grossly normal MDM MDM MDM Narrative Medical decision making narrative: EKG was obtained. On my interpretation, it showed a normal sinus rhythm with a rate of 91. CA interval, QRS interval, and QTc intervals were all normal. Eads was normal. There are no acute ST or T wave changes. CBC was essentially within normal limits. Comprehensive metabolic profile was normal. D-dimer was elevated at 1.55. Because of this, CTA of the chest was obtained. There is no evidence of pulmonary embolism. COVID-19 rapid antigen was obtained and was positive. Patient was advised of her findings. Patient was instructed to follow-up with her primary care physician in 5 to 7 days. Patient was instructed to follow-up with her MARRIAGE AND FAMILY COUNSELOR as scheduled. Patient was instructed to take Tylenol as needed for aches or fevers. Patient understood and was agreeable with the plan. All questions were answered. Lab Data Attestation: I reviewed the patient's lab results. Labs: Laboratory Results - last 24 hr 06/06/21 06/06/21 06/06/21 12:08 12:08 12:08 WBC 6.6 RBC 4.05 L Hgb 11.8 L Hct 36.5 L MCV 90.1 MCH 29.1 MCHC 32.3 RDW Std Deviation 42.2 RDW Coeff of Jennie 12.7 Plt Count 204 MPV 10.0 Immature Gran % (Auto) 0.600 Neut % (Auto) 72.0 H Lymph % (Auto) 20.7 Garland % (Auto) 5.6 Eos % (Auto) 0.8 Baso % (Auto) 0.3 Absolute Neuts (auto) 4.8 Absolute Lymphs (auto) 1.37 Nucleated RBC % 0 D-Dimer Quant (PE/DVT) 1.55 H* Sodium 137 Potassium 3.6 Chloride 109 H Carbon Dioxide 23.0 Anion Gap 5 BUN 8 Creatinine 0.48 L Estim Creat Clear Calc 152.08 Est GFR (MDRD) Af Amer 207 Est GFR (MDRD) Non-Af 171 BUN/Creatinine Ratio 16.6 Glucose 95 Calcium 9.5 Total Bilirubin 0.20 AST 10 L ALT 13 Alkaline Phosphatase 97 Total Protein 6.4 Albumin 2.4 L Globulin 4.0 Albumin/Globulin Ratio 0.6 L Radiography Diagnostic Testing: Radiology Impression Chest CTA 06/06/21 12:43 IMPRESSION: Normal CTA chest examination, without a demonstrated pulmonary embolism or arterial dissection. Electronically Signed: Vasiliy Kim MD at 13:17 EDT , Service support , EKG Initial EKG: Attestation: I personally reviewed and interpreted this EKG as follows: Interpretation: Sinus Rhythm (91) and No Acute Injury Pattern Prior EKG tracings: available for review Prior: Unchanged (08/20/2019) Discharge Plan Triage Chief Complaint: Shortness of Breath ED Provider: Bacilio Aceves Dx/Rx/DC Orders Clinical Impression: COVID-19, Instructions: Coronavirus Disease 2019 (COVID-19): Caring for Yourself or Others Prescriptions: No Action NK RF: 0 Primary Care Provider: Care Physician,No Primary Referrals: Care Physician,No Primary [Primary Care Provider] - Disposition Disposition: Home, Self Care
[2021-06-06 15:02] VITALS: BP 129/77; O2SAT 95
== END 2021-06-06 15:06 | disposition home or self-care (01) ==
PROVIDERS: Emergency Provider Emergency Medicine
DX: O98.513 Other viral diseases complicating pregnancy, third trimester (principal); U07.1 COVID-19; Z3A.33 33 weeks gestation of pregnancy; Z87.891 Personal history of nicotine dependence
CPT/HCPCS: 71275; 80053; 85025; 85379; 87426; 93005; 99284; Q9967; A4216

== ENCOUNTER 2021-06-13 11:30 | Outpatient (CLI) | payer MEDICAID, SELFPAY ==
[2021-06-13 11:52] VITALS: BP 138/75; PULSE 96; TEMP 36.8; O2SAT 97; BMI 42.7
[2021-06-13 12:28] LABS: Red Blood Cells-Urine 0 SEEN /hpf (0-5)
[2021-06-13 12:33] LABS: Color, Urine Yellow (Yellow); Glucose, Dipstick Normal (Normal); Ketone-Dipstick Negative (Negative); Leukocyte Esterase-Dipstick 500 /ul (Negative); Nitrite-Dipstick Negative (Negative); Occult Blood-Urine Negative /ul (Negative); Protein-Dipstick 15 mg/dl (Negative); Urine Bilirubin Dipstick Negative (Negative); Urine Clarity Sl. Cloudy (Clear); Urine Urobilinogen Normal (Normal)
[2021-06-13] MEDS: Lactated Ringers 500 ML 999 ML IV (12:50)
--- NOTE | 2021-06-13 13:02 | OB.TRI.NOTE ---
HPI - General HPI Narrative MAXWELL DICKEY, is a 21 F who presents pelvic cramping PFSH PFSH Medical History Arthritis Asthma Encounter for screening for COVID-19 history of ear tubes Seasonal allergies Shortness of breath Home Medications NK 05/29/21 [History Last Taken Unknown] Allergy/AdvReac Type Severity Reaction Status Date / Time bee venom protein (honey bee) Allergy Severe Anaphylaxis Verified 06/13/21 11:53 latex Allergy Mild Rash Verified 06/13/21 11:53 Penicillins AdvReac Vomiting Verified 06/13/21 11:53 Social History Smoking Status: Former smoker alcohol intake: never History 3 Elective abortions Hx Para 1 Spontaneous abortions Hx # Term Pregnancies 1 Ectopic pregnancies Hx # Pregnancies Multiple births # of living children NST FHR Rate Baby A Baseline: 120 Variability:: Moderate Accelerations:: 15 x 15 Decelerations:: None NST Reactive:: Yes Uterine Activity:: Few contractions Assessment & Plan (1) : QUALIFIERS: Weeks of gestation: 30 weeks Qualified Code(s): Z3A.30 - 30 weeks gestation of PLAN: Patient has a pelvic cramping. Cervix unchanged after multiple checks no signs of labor. Urine with possible UTI antibiotics sent. Follow-up at scheduled appointments
[2021-06-13 13:03] LABS: Bacteria 2+ /hpf (None Seen); Mucous, Urine RARE /hpf (<or=2+); Squamous Epithelial Cells - UA 0-5 SEEN /hpf (5-10); White Blood Cells 5-10 SEEN /hpf (0-5)
[2021-06-13 13:31] VITALS: BP 142/74; PULSE 90; TEMP 36.7
== END 2021-06-13 15:00 | disposition home or self-care (01) ==
LOC: WPOUT 11:37 → WP 11:52
PROVIDERS: Visit Provider Obstetrics & Gynecology
DX: O26.893 Other specified pregnancy related conditions, third trimester (principal); R10.2 Pelvic and perineal pain; Z3A.30 30 weeks gestation of pregnancy; Z87.891 Personal history of nicotine dependence
CPT/HCPCS: 96365; 59025; 59050; 81001; 87086; 87088; 99218; J7120; G0378

== ENCOUNTER 2021-06-22 17:50 | Outpatient (CLI) | payer MEDICAID, SELFPAY ==
[2021-06-22 18:09] VITALS: TEMP 36.3
[2021-06-22 18:10] VITALS: BP 119/61; PULSE 93; TEMP 36.3; O2SAT 98
[2021-06-22 18:17] VITALS: BMI 44.8
[2021-06-22 18:51] LABS: ROM Internal Control Test YES-OK TO RESULT pt. (Internal QC); ROM Patient Test Negative (Negative)
--- NOTE | 2021-07-01 16:02 | PCM.PN.BLA ---
Progress Note at 35 and 1 weeks seen in triage for leaking of fluid. Patient denied regular contractions, vaginal bleeding. Reports movement. NST reactive: heart rate 150/moderate variability/+accel/neg decel. ROM negative. Discharge home with labor precautions. Patient to follow-up that week in office.
[2021-07-03 10:49] VITALS: BP 112/70; PULSE 95; TEMP 36.7; O2SAT 97
== END 2021-06-22 19:10 | disposition home or self-care (01) ==
LOC: WPOUT 18:02 → WP 18:02
PROVIDERS: Visit Provider Student in an Organized Health Care Education/Training Program
DX: O47.9 False labor, unspecified (principal); Z3A.00 Weeks of gestation of pregnancy not specified
CPT/HCPCS: 59025; 59050; 84112; 99218; G0378

== ENCOUNTER → 2021-06-30 13:47 | Outpatient (CLI) | payer MEDICAID, SELFPAY | PROVIDERS: Visit Provider Obstetrics & Gynecology | DX: Z36.85 Encounter for antenatal screening for Streptococcus B (principal) | CPT/HCPCS: 87077; 87081; 87186 ==

== ENCOUNTER 2021-07-03 10:30 | Outpatient (CLI) | payer MEDICAID, SELFPAY ==
[2021-07-03 10:58] VITALS: BMI 45.3
--- NOTE | 2021-07-03 21:31 | OB.TRI.NOTE ---
HPI - General HPI Narrative MAXWELL DICKEY, is a 21 F who presents contractions [facility] Medical History Arthritis Asthma Encounter for screening for COVID-19 history of ear tubes Seasonal allergies Shortness of breath Home Medications [id number] [] 1 tab PO DAILY 06/22/21 [History Last Taken 07/04/21] Allergy/AdvReac Type Severity Reaction Status Date / Time bee venom protein (honey bee) Allergy Severe Anaphylaxis Verified 07/05/21 03:45 latex Allergy Mild Rash Verified 07/05/21 03:45 Penicillins AdvReac Vomiting Verified 07/05/21 03:45 Social History (System 06/16/21 @ 14:15 by Jacek Lowery) Smoking Status: Former smoker alcohol intake: never History 3 Elective abortions Hx Para 1 Spontaneous abortions Hx # Term Pregnancies 1 Ectopic pregnancies Hx # Pregnancies Multiple births # of living children NST FHR Rate Baby A Baseline: 120 Variability:: Moderate Accelerations:: 15 x 15 Decelerations:: None NST Reactive:: Yes Uterine Activity:: Few contractions Assessment & Plan (1) : QUALIFIERS: Weeks of gestation: 30 weeks Qualified Code(s): Z3A.30 - 30 weeks gestation of PLAN: Patient arrives with contractions, no cervical change. No signs of labor reassuring heart tones. Okay to discharge home and follow-up at scheduled appointments
== END 2021-07-03 12:30 | disposition home or self-care (01) ==
LOC: WPOUT 10:36 → WP 10:37
PROVIDERS: Referring Provider Obstetrics & Gynecology; Visit Provider Obstetrics & Gynecology
DX: O47.03 False labor before 37 completed weeks of gestation, third trimester (principal); Z3A.30 30 weeks gestation of pregnancy; Z87.891 Personal history of nicotine dependence
CPT/HCPCS: 59025; 59050; 99218; G0378

== ENCOUNTER 2021-07-05 03:20 | Outpatient (CLI) | payer MEDICAID, SELFPAY ==
[2021-07-05 03:34] VITALS: TEMP 36.4
[2021-07-05 03:35] VITALS: BP 145/95; PULSE 92
[2021-07-05 03:37] VITALS: PULSE 85; O2SAT 98
[2021-07-05 03:46] VITALS: BMI 46.0
[2021-07-05 03:52] VITALS: PULSE 88; O2SAT 98
[2021-07-05 03:54] VITALS: BP 138/76; PULSE 91
[2021-07-05 06:01] VITALS: BP 134/96; PULSE 81
--- NOTE | 2021-07-06 10:08 | OB.TRI.NOTE ---
HPI - General HPI Narrative MAXWELL DICKEY, is a 21 F who presents to labor and delivery with occasional contraction at 36 weeks 5 days. PFSH PFSH Medical History Arthritis Asthma Encounter for screening for COVID-19 history of ear tubes Seasonal allergies Shortness of breath Home Medications [id number] [] 1 tab PO DAILY 06/22/21 [History Last Taken 07/04/21] Allergy/AdvReac Type Severity Reaction Status Date / Time bee venom protein (honey bee) Allergy Severe Anaphylaxis Verified 07/05/21 03:45 latex Allergy Mild Rash Verified 07/05/21 03:45 Penicillins AdvReac Vomiting Verified 07/05/21 03:45 Social History (System 06/16/21 @ 14:15 by Jacek Lowery) Smoking Status: Former smoker alcohol intake: never History 3 Elective abortions Hx Para 1 Spontaneous abortions Hx # Term Pregnancies 1 Ectopic pregnancies Hx # Pregnancies Multiple births # of living children NST FHR Rate Baby A NST Reactive:: Yes FHR Category:: Category I Assessment & Plan (1) False labor before 37 completed weeks of gestation: QUALIFIERS: Trimester: third trimester Qualified Code(s): O47.03 - False labor before 37 completed weeks of gestation, third trimester PLAN: 36 weeks 5 days with some transient contractions. After monitoring no change in cervix noted. Reactive nonstress test. Will release to home with routine labor instructions.
== END 2021-07-05 06:15 | disposition home or self-care (01) ==
LOC: WPOUT 03:29 → WP 03:29
PROVIDERS: Visit Provider Obstetrics & Gynecology
DX: O47.03 False labor before 37 completed weeks of gestation, third trimester (principal); Z3A.36 36 weeks gestation of pregnancy; Z87.891 Personal history of nicotine dependence
CPT/HCPCS: 59025; 59050; 99218; G0378

== ENCOUNTER 2021-07-10 21:35 | Outpatient (CLI) | payer MEDICAID, SELFPAY ==
[2021-07-10 21:52] VITALS: BP 135/78; PULSE 90; TEMP 36.6
[2021-07-10 21:59] VITALS: BMI 44.7
--- NOTE | 2021-07-10 23:23 | OB.TRI.NOTE ---
HPI - General HPI Narrative MAXWELL DICKEY, is a 21 F who presents contractions [facility] Medical History Arthritis Asthma Encounter for screening for COVID-19 history of ear tubes Seasonal allergies Shortness of breath Home Medications [id number] [] 1 tab PO DAILY 06/22/21 [History Last Taken 07/10/21 09:00] Allergy/AdvReac Type Severity Reaction Status Date / Time bee venom protein (honey bee) Allergy Severe Anaphylaxis Verified 07/10/21 22:01 latex Allergy Mild Rash Verified 07/10/21 22:01 Penicillins AdvReac Vomiting Verified 07/10/21 22:01 Social History (System 06/16/21 @ 14:15 by Jacek Lowery) Smoking Status: Former smoker alcohol intake: never History 3 Elective abortions Hx Para 1 Spontaneous abortions Hx # Term Pregnancies 1 Ectopic pregnancies Hx # Pregnancies Multiple births # of living children NST FHR Rate Baby A Baseline: 110 Variability:: Moderate Accelerations:: 15 x 15 Decelerations:: None NST Reactive:: Yes Uterine Activity:: every 2 to 10 minutes Assessment & Plan (1) : QUALIFIERS: Weeks of gestation: 30 weeks Qualified Code(s): Z3A.30 - 30 weeks gestation of PLAN: Patient arrived with contractions. Unchanged cervix, no signs of labor. Okay to discharge home and follow-up at scheduled appointments
== END 2021-07-11 00:45 | disposition home or self-care (01) ==
LOC: WPOUT 21:47 → WP 21:48
PROVIDERS: Visit Provider Obstetrics & Gynecology
DX: O47.03 False labor before 37 completed weeks of gestation, third trimester (principal); Z87.891 Personal history of nicotine dependence; Z3A.30 30 weeks gestation of pregnancy
CPT/HCPCS: 59025; 59050; 99218; G0378

== ENCOUNTER 2021-07-11 17:20 | Outpatient (CLI) | payer MEDICAID, SELFPAY ==
[2021-07-11 17:39] VITALS: BMI 45.1
[2021-07-11 17:57] VITALS: BP 131/82; PULSE 86; TEMP 36.1
[2021-07-11 18:13] LABS: ROM Internal Control Test YES-OK TO RESULT pt. (Internal QC)
[2021-07-11 18:14] LABS: ROM Patient Test Negative (Negative)
--- NOTE | 2021-07-11 21:02 | OB.TRI.NOTE ---
HPI - General HPI Narrative MAXWELL DICKEY, is a 21 F who presents with leakage of fluid PFSH PFSH Medical History Arthritis Asthma Encounter for screening for COVID-19 history of ear tubes Seasonal allergies Shortness of breath Home Medications [id number] [] 1 tab PO DAILY 06/22/21 [History Last Taken 07/10/21 09:00] Allergy/AdvReac Type Severity Reaction Status Date / Time bee venom protein (honey bee) Allergy Severe Anaphylaxis Verified 07/11/21 17:54 latex Allergy Mild Rash Verified 07/11/21 17:54 Penicillins AdvReac Vomiting Verified 07/11/21 17:54 Social History (System 06/16/21 @ 14:15 by Jacek Lowery) Smoking Status: Former smoker alcohol intake: never History 3 Elective abortions Hx Para 1 Spontaneous abortions Hx # Term Pregnancies 1 Ectopic pregnancies Hx # Pregnancies Multiple births # of living children NST FHR Rate Baby A Baseline: 120 Variability:: Moderate Accelerations:: 15 x 15 Decelerations:: None NST Reactive:: Yes Uterine Activity:: Every 2 to 10 minutes Assessment & Plan (1) : QUALIFIERS: Weeks of gestation: 30 weeks Qualified Code(s): Z3A.30 - 30 weeks gestation of PLAN: Patient arrives with leakage of fluid. ROM negative. heart tones reassuring. No signs of ruptured membranes, cervical exam unchanged. All reassuring. Okay to discharge home and follow-up at scheduled appointments
== END 2021-07-11 18:55 | disposition home or self-care (01) ==
LOC: WPOUT 17:21 → WP 17:23
PROVIDERS: Referring Provider Obstetrics & Gynecology; Visit Provider Obstetrics & Gynecology
DX: O26.93 Pregnancy related conditions, unspecified, third trimester (principal); Z87.891 Personal history of nicotine dependence; Z3A.30 30 weeks gestation of pregnancy
CPT/HCPCS: 59025; 59050; 84112; 99218; G0378

== ENCOUNTER 2021-07-13 03:48 | Outpatient (CLI) | payer MEDICAID, SELFPAY ==
[2021-07-13 04:01] VITALS: BMI 44.5
[2021-07-13 04:04] VITALS: BP 146/76; PULSE 75; TEMP 36.2
--- NOTE | 2021-07-13 10:05 | OB.TRI.NOTE ---
HPI - General HPI Narrative MAXWELL DICKEY, is a 21 F who presents with contractions PFSH PFS Medical History Arthritis Asthma Encounter for screening for COVID-19 history of ear tubes Seasonal allergies Shortness of breath Home Medications [id number] [] 1 tab PO DAILY 06/22/21 [History Last Taken 07/12/21] Allergy/AdvReac Type Severity Reaction Status Date / Time bee venom protein (honey bee) Allergy Severe Anaphylaxis Verified 07/13/21 04:09 latex Allergy Mild Rash Verified 07/13/21 04:09 Penicillins AdvReac Vomiting Verified 07/13/21 04:09 Social History (System 06/16/21 @ 14:15 by Jacek Lowery) Smoking Status: Former smoker alcohol intake: never History 3 Elective abortions Hx Para 1 Spontaneous abortions Hx # Term Pregnancies 1 Ectopic pregnancies Hx # Pregnancies Multiple births # of living children NST FHR Rate Baby A Baseline: 120 Variability:: Moderate Accelerations:: 15 x 15 Decelerations:: None NST Reactive:: Yes Uterine Activity:: Every 10 minutes Assessment & Plan (1) : QUALIFIERS: Weeks of gestation: 30 weeks Qualified Code(s): Z3A.30 - 30 weeks gestation of PLAN: Patient arrives with contractions, after multiple cervical checks no change in cervix. No signs of labor. Reassuring heart tones. Okay to discharge home and follow-up at scheduled appointments
== END 2021-07-13 08:25 | disposition home or self-care (01) ==
LOC: WPOUT 03:52 → WP 03:54
PROVIDERS: Visit Provider Obstetrics & Gynecology
DX: O47.03 False labor before 37 completed weeks of gestation, third trimester (principal); Z3A.30 30 weeks gestation of pregnancy; Z87.891 Personal history of nicotine dependence
CPT/HCPCS: 59025; 59050; 99218; G0378

== ENCOUNTER 2021-07-16 12:10 | Inpatient (IN) | payer MEDICAID, SELFPAY ==
[2021-07-16] VITALS (37 sets, daily range): BP systolic 96–137; BP diastolic 53–76; PULSE 66–91; TEMP 36.2–36.9; O2SAT 97–100; BMI 46.5
[2021-07-16 12:03] LABS: ROM Internal Control Test YES-OK TO RESULT pt. (Internal QC)
[2021-07-16 12:06] LABS: ROM Patient Test POSITIVE (Negative)
[2021-07-16] MEDS: Lactated Ringers 1,000 ML 50 ML IV (12:40)
[2021-07-16 12:51] LABS: Absolute Lymphocyte Count 1.79 X10^3/uL (0.83-4.51); Absolute Neutrophil Count 8.4 X10^3/uL (2.0-7.7); Basophil# 0.03 X10^3/uL; Basophil% 0.3 % (0-1); Eosinophil# 0.06 X10^3/uL; Eosinophils% 0.5 % (0-5); Hematocrit 33.9 % (37-47); Hemoglobin 11.1 g/dL (12.0-15.0); Lymphocyte # 1.79 X10^3/ul (0.83-4.51); Lymphocyte % 16.2 % (19-41); Mean Corp Hgb Conc 32.7 g/dL (32-36); Mean Corpuscular Hgb 28.8 pg (27.0-32.0); Mean Corpuscular Volume 87.8 fL (81-99); Mean Platelet Vol. 10.2 fl (6.2-12.0); Monocyte% 6.3 % (0-10); NRBC Flagged by Analyzer 0 % (0-5); Neutrophil # 8.42 X10^3/uL (2.7-7.7); Neutrophil % 76.3 % (47-70); Platelet Count 261 K/mm3 (150-450); RBC Distribution Width CV 13.4 % (11.6-14.6); RBC Distribution Width SD 43.1 fl (35.1-43.9); Red Blood Count 3.86 M/mm3 (4.2-5.4)
--- NOTE | 2021-07-16 13:12 | PCM.HP.BLA ---
History and Physical Date of Admission: 07/16/21 ACOG ANTEPARTUM RECORD - HISTORY AND PHYSICAL (07/16/2021) Name: MAXWELL DICKEY History of this : This is a 21 year old [id number] presents at 38 wks + 4 days gestation who presents in early labor with SROM. OB Physician: Brady Bazan MD 's Physician: DR. MARCOS AQUINO ...................................................................... : 2000 Age: 21 Address: [facility] [address] [place] [address] Phone: [phone] Insurance Carrier: Stir [phone] Emergency Contact: CHAIM JIMÉNEZ [phone] ...................................................................... Final ÁNGEL: 07/26/21 By Ultrasound: 6 weeks 5 days PARITY: (G-Total Pregnancies P-Fullterm,Premature,Induced AB,Spont AB, Ectopics, Multiple,Living) ÁNGEL CONFIRMATION: By LMP: 01/14/19 Initial Exam: 10/21/19 By First Ultrasound Exam: 11/08/19 Final ÁNGEL: 07/26/21 OB PROBLEM LIST: Has Proair Inhaler for prn. Has albuterol for nebulization prn. Last use few mo ago Declines any genetics testing. ALLERGIC TO PENICILLINS and bee pollen. COVID positive 05/29/21 Positive THC on tox screen--advised to stop illicit drug use Pt has bilateral partial congential hearing loss ALLERGIES: Bee Pollen Hives and/or rash Penicillins Hives and/or rash MEDICATIONS: albuterol sulfate 1.25 mg/3 mL solution for nebulization As Directed Macrobid 100 mg capsule 1 PO BID Macrobid 100 mg capsule 1 tab po bid 28 mg iron-800 mcg tablet One pill by mouth once a day ProAir HFA 90 mcg/actuation aerosol inhaler As Directed Zofran 4 mg tablet One pill by mouth four times a day prn nausea SOCIAL HISTORY: Smoking - used to smoke but quit Alcohol Use - drinks occasionally not while Diet - Now just soup. Usually eats better. Occ pop. Water 3 bottles day. Lifestyle - moderate stress lifestyle Exercise - Active w baby and home. Employer - Unemployed. 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 Sexual Activity - active w/fiance Residence - rents an apartment Place of - [place], [place] Spouse-Sig Other Name - Mickyovidio Jiménez Spouse-Sig Other Occupation - Disability (Seizures, Speech Impediment) Spouse-Sig Other Phone No - [phone] Children Name(s) - Zaina Marks ('20) PRIOR DELIVERY HISTORY DEL DATE GEST LAB WT LB WT OZ TYPE ANES LABOR TX 17 Oct 20 38 21 7 2 Vag Epidural No 25 Feb 19 6 0 0 0 Sab None No ANTEPARTUM FLOW CHART VISIT GE RTC FU F F NV U U DATE WK MD WKS HT PN HR M SS BP ED WT NV GL D EF ST __ ____ ___ __ __ ___ __ __ __ ___ __ __ __ ___ __ 01 Jul JM 1 38 V + + 114/70 sl 263 tr - 3 Jun JM 1 37 V + + 114/74 sl 260 tr - 2 Jun JM 1 36 V + + O 100/66 260 1 12 Jun JM 1 35 V + + 118/66 0 258 - - May JM 2 31 - + + 124/76 sl 253 - - May 10 JMW 3 28 + + 124/66 tr 250 1+ 1+ May 10 JM + + 118/64 0 249 Apr 04 SHM 4 25 + + 124/64 0 248 tr - Apr 03 124/68 tr 245 tr - Mar 01 JMW 4 20 + 104/60 tr 248 ne ne Feb 27 JMW 4 17 + O 102/64 0 247 tr - January 24 JMW 3 14 U+ 110/64 0 250 1+ ne Dec 21 JM 4 10 - + US 110/76 0 254 tr - Nov 16 JMW 4 + US 114/72 0 263 tr - ANTEPARTUM NOTE(S): Jul 14 2021: ctx's, L+D visits, cervix check Jul 07 2021: ctx's, L+D Wednesday: Jun 24 2021: May 26 2021: Round Ligament Pain,Good FM May 07 2021: glucola/ labs today May 05 2021: Apr 02 2021: see note Mar 24 2021: Mar 05 2021: US today Feb 20 2021: n/v, cramping, RLP; declines AFP Jan 27 2021: Nausea less; using Zofran Dec 30 2020: nausea sl better Dec 05 2020: Sono Today, Nausea Worse wants Rx COMPREHENSIVE ANTEPARTUM NOTE(S): Jul 14 2021: Maxwell is here for a PNV at 38/2. Good FM. Sl edema present in ankles and feet. Pt has been in and out of L+D all weekend d/t consistent ctx's. Would like a cervix check today, ctx's continue. Interested in membrane sweep. No concerns expressed at this time. MK Jul 14 2021: 38wk, membranes swept. SARAH Jul 09 2021: H faxed to OB. tkg Jul 07 2021: Maxwell is here for a PNV w/ so at 37 wks. Good FM. Sl edema in ankles and feet. Pt reports mix of real ctx's and Wingo Blackmon. Was in L+D last Wednesday for consistent ctx's that started in the back and radiated to front. Cervical exam revealed pt was dilated 2 cm and 50% effaced. Desires cervix check today. Jul 07 2021: 37wk GBS positive. SARAH Jun 30 2021: 36 weeks, GBS collected today. SARAH Jun 30 2021: Reviewed FM, SROM, and labor. GBS will be done today. LARC declined. Considering non-hormonal barrier type of control . LMT Jun 24 2021: Maxwell here PVN. Doing well. FM good. Edema check good. CMB Jun 24 2021: 35wk, COVID positive 05/2021 now feeling much improved. Educated pt on COVID in . GBS next visit. Jun 05 2021: rec'd from Maxwell @ 32 wks 5 days advising she tested POSITIVE for COVID; wondering what to do? No name attached to . Return ML for her to call back in. May 26 2021: 31wk, passed 3hr GTT. May 07 2021: Maxwell is here for PNV 28/4. Had GCT/labs drawn today. Just a trace of swelling noted in feet. States she has been feeling well but did have some nausea just this morning. Having good FM. Voices no concerns. Urine 1+/1+. LSS May 05 2021: Maxwell is here w FOB following call to Triage at 28.2 weeks. States having cramping at int. Not timeable. No leaking fluid just mucus. First baby delivered at 38 w. NST explained and done with nurse present entire time to maintain tracing. Acoustic stim x 1 w continued difficulty w continuous tracing. Baby active and she is feeling movement now. Strip reviewed by Dr SMITH and to have US. KATHY. Apr 02 2021: Maxwell reports she is not feeling well. Has been having migraines for 2 weeks. Has Rx for Fioricet and has taken 20 pills in 8 days with little relief. Continues with feeling lightheaded. Encouraged increased po fluids, eating protein meals q 3 hours. Discussed that Fioricet may cause that lightheaded feeling but states it happened prior to using the Fioricet. Glucola given with instructions. L Apr 02 2021: Advised of risk for rebound headache with excessive analgesic use. Pt reports some improvement of headache with Fiorecet. I advise magnesium 200-400mg daily and if no improvement to call back for neurology referral. Headache is temporal, bilateral, throbbing. No nausea, photophobia or aura, vision changes. Also c/o RUQP. Exam unremarkable with soft, NT abdomen, + 1 b/l LE DTRs and no clonus. Preec Mar 24 2021: See previous msg from call phone this weekend. I had spoken to her again Sat evening and she had not checked her BP again. Reported headache was a little improved, but still there. Advised to take Benadryl and Tylenol at bedtime with the hopes this will help. Had been feeling a little lightheaded. Reviewed food and fluids. She had eaten a sausage egg muffin for breakfast, pizza rolls at lunch and Mar 24 2021: Maxwell is here following call to Triage for eval of headaches at 22.2 weeks. She is accompanied by SO. States only gets these headaches during . My whole head hurts. This morning I had some spots in front of my eyes. Took 1000 mg Tylenol and had some peach tea without relief. Urine neg. BP 124/68 lg cuff after sitting a few minutes. Coffee/ Coke/ Dr Soliz suggested for caffeine if Mar 22 2021: Call Msg from 10:40 AM this morning. Maxwell calling @ 22 wks w/concern of BP readings and headache. States she had discussed headache with Dr. Bazan at her last visit and was told to increase water intake and add more salt to her diet. Would question she understood Dr Bazan with regard to salt. Adding salt is NOT something we recommend. Added salt can increase BP, fluid retention. Advised to fanny Mar 05 2021: Maxwell is here for PNV following US. States she has not felt FM yet. Just a trace of swelling noted in hands and feet. Continues with N/V every morning. Not using zofran. Usually will resolve early and feels better by late morning. Has been experiencing headaches and lightheadedness. Urine neg/neg. LSS Feb 20 2021: Maxwell is here for a PNV w/ SO at 17 wks. No FM yet. No edema present. N/V present in morning, Zofran helps nausea. No other concerns expressed. MK Jan 27 2021: Maxwell is here for PNV. Vomiting has slowed down but continues with nausea. States she is no longer using THC but trying other means. Drinking gatorade. Most of N/V in am. No other complaints. No edema noted. Urine showing 1+/neg. LSS Dec 30 2020: Mild nausea still present but improved with Zofran. May try simple carb first thing in the am to see if this helps am nausea and emesis. 18 lb weight loss noted. LMT Dec 30 2020: 10wk, with pretty severe n/v. Vomits 3-4 times in the morning. Hx of hospitalization for n/v last . Zofran is helping but admits that she is mostly using THC. Educated on THC use in and its risks. Educated on hydration and diet. Pt needs repeat u/s at anatomy scan for abdominal wall. JM Dec 09 2020: TELEHEALTH NOB- Maxwell is a 20 yo G 3 P 1 w ÁNGEL 07-26-21 planning a vag del w epidural at [facility] using DR Karen Aquino for post disch ped care and to breastfeed. 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 FOB of both is Micky Jiménez who is on disability for seizures and speech issues. Maxwell has partial zac congenital deafness. She doesn't wear hearing aids It REVIEW OF SYSTEMS: GENERAL - Denies fever, or chills SKIN - Denies rash, new skin lesions, or change in moles EYES - Denies blurred vision, or change in visual acuity EARS - Denies ear pain, or difficulty hearing NOSE - Denies nasal congestion, discharge, or bleeding MOUTH - Denies sore throat, or difficulty swallowing NECK - Denies pain or swelling RESPIRATORY - Denies shortness of breath, cough, wheezing CARDIOVASCULAR - Denies palpitations, chest pain, orthopnea, PND, peripheral edema, syncope or claudication GASTROINTESTINAL - Denies nausea, vomiting, diarrhea, constipation, Denies abdominal pain, melena and or bright red blood GENITOURINARY - Denies dysuria, frequency of urination, urgency, or hesitancy MUSCULOSKELETAL - Denies joint or muscle pain, or back pain NEUROLOGICAL - Denies localized numbness, weakness, or tingling PSYCHIATRIC - Denies depression, anxiety, substance abuse or suicide attempts ENDOCRINE - Denies heat or cold intolerance, weight loss or gain, increasing thirst HEMATO-IMMUNOLOGIC - Denies easy bruising, bleeding, oral ulcerations or recurrent infections GENETICS SCREENING: Age 35+ years: No Thalassemia: No Neural Tube Defect: No Down Syndrome: No TEVIN-SACHS: No Sickle Cell Disease: No Hemophilia: No Musc. Dystrophy: No Cystic Fibrosis: No-declines screening [place] Chorea: No Mental Retardation: No Fragile X: No Other genetic: No Other defects: No SABs/still births: No Drugs since LMP: Yes Comments: Congential hearing loss - pt INFECTION HISTORY: High risk AIDS: No High risk Hepatitis: No Exposed to TB: No Exposed to Herpes: No Rash/viral illness since LMP: No History of STD: No MENSTRUAL HISTORY: *Menses Amount/Duration: 3 daysMenses Regularity: RegularMenarche (Age Onset): 8* PAST SUMMARY: PARITY: 1. Total Pregnancies............ 3 2. Full Term Pregnancies........ 1 3. Premature.................... 0 4. Abortions - Induced.......... 0 5. Abortions - Spontaneous...... 1 6. Ectopics..................... 0 7. Multiple Births.............. 0 8. Living Children.............. 1 PAST #1: Date of :.................. 11/07/18 Gestation Weeks:................ 6 Length of labor(hours):......... 0 Sex:............................ Weight-lbs:............... 0 Weight-oz:................ 0 Type of Delivery:............... Sab Type of Anesthesia:............. None Place of Delivery:.............. none Treatment of Labor?:.... No Comment: MISSED AB PAST #2: Date of :.................. 10/30/19 Gestation Weeks:................ 38 Length of labor(hours):......... 21 Sex:............................ F Weight-lbs:............... 7 Weight-oz:................ 2 Type of Delivery:............... Vag Type of Anesthesia:............. Epidural Place of Delivery:.............. [place] Treatment of Labor?:.... No Comment: NO PHYSICAL EXAMINATION General Appearence: 21 yo female in no acute distress Vital Signs: AF, VSS Heart: RRR without rubs or gallops Lungs: CTA x 2 Breasts: deferred Abdomen: gravid Pelvis: Cervix: 4/75 Presentation: cephalic Station: -2 Fetus: Size: AGA Movement: present Heart: present LAB TEST(S) ORDERED SINCE:10/29/20 07/16/2021 CBC W/DIFF, AUTOMATED 07/16/2021 (ROM) RUPTURE OF MEMBRANES 07/11/2021 (ROM) RUPTURE OF MEMBRANES 07/04/2021 RULE OUT BETA STREP (GRP. B) 06/22/2021 (ROM) RUPTURE OF MEMBRANES 06/14/2021 URINE CULTURE 06/13/2021 URINALYSIS, COMPLETE 05/22/2021 URINE CULTURE 05/20/2021 URINALYSIS, COMPLETE 05/20/2021 FIBRONECTIN 05/12/2021 GESTATIONAL GTT 3HR 100G 05/07/2021 GLUCOSE CHALLENGE GEST 1H 50G 05/07/2021 CBC-COMPLETE BLOOD CNT NO DIFF 04/15/2021 URINE CULTURE 04/13/2021 URINALYSIS, COMPLETE 04/04/2021 MISCELLANEOUS LAB PROCEDURE 04/02/2021 URIC ACID 04/02/2021 COMPREHENSIVE METABOLIC PROFIL 04/02/2021 CBC-COMPLETE BLOOD CNT NO DIFF 12/31/2020 RUBELLA IGG 12/31/2020 L509.8000 12/31/2020 HIV - [facility] 12/31/2020 HEPATITIS C ANTIBODY 12/31/2020 HEPATITIS B SURFACE ANTIGEN 12/30/2020 URINE DRUG SCREEN (VISTA) 12/30/2020 URINALYSIS, ROUTINE (DIPSTICK) 12/30/2020 THYROID STIM HORMONE (TSH) 12/30/2020 T AND S-NO CHARGE W/PNP 12/30/2020 CBC W/DIFF, AUTOMATED 12/04/2020 PAP TEST I-G 12/03/2020 CHLAMYDIA/GC DELFINO APTIMA == ==== Order Observation Description Value Ref_Range A* Site == ==== CBC W/DIFF, AUT NOTE KOVACS CBC W/DIFF, AUT WBC 11.0 K/mm3 4.4-11.0 ML CBC W/DIFF, AUT RBC 3.86 M/mm3 4.2-5.4 L ML CBC W/DIFF, AUT HGB 11.1 g/dL 12.0-15.0 L ML CBC W/DIFF, AUT HCT 33.9 37-47 L ML CBC W/DIFF, AUT MCV 87.8 fL 81-99 ML CBC W/DIFF, AUT MCH 28.8 pg 27.0-32.0 ML CBC W/DIFF, AUT MCHC 32.7 g/dL 32-36 ML CBC W/DIFF, AUT RDW CV 13.4 11.6-14.6 ML CBC W/DIFF, AUT RDW SD 43.1 fl 35.1-43.9 ML CBC W/DIFF, AUT PLT 261 K/mm3 150-450 ML CBC W/DIFF, AUT MPV 10.2 fl 6.2-12.0 ML CBC W/DIFF, AUT NEUT% 76.3 47-70 H ML CBC W/DIFF, AUT LY% 16.2 19-41 L ML CBC W/DIFF, AUT MONO% 6.3 0-10 ML CBC W/DIFF, AUT EO% 0.5 0-5 ML CBC W/DIFF, AUT BASO% 0.3 0-1 ML CBC W/DIFF, AUT IG% 0.400 0.0-0.9 ML IG% - Immature Granulocytes (promyelocytes, myelocytes and metamyelocytes) > 1% indicates that a LEFT SHIFT is Present. CBC W/DIFF, AUT ABSOLUTE NEUT 8.4 X10 3/uL 2.0-7.7 H ML CBC W/DIFF, AUT ABSOLUTE LYMPH 1.79 X10 3/uL 0.83-4.51 ML CBC W/DIFF, AUT NUCLEATED RBC 0 0-5 ML (ROM) RUPTURE O NOTE KOVACS (ROM) RUPTURE O ROM POSITIVE Negative A ML Amniotic fluid present indicates rupture of Membranes. RESULTS CALLED TO KODAK HARRELL () 07/16/21 1203 Saulo Mario. REPORT READ BACK BY SAME. (ROM) RUPTURE O NOTE KOVACS (ROM) RUPTURE O ROM Negative Negative ML Amniotic fluid not present indicates No Rupture of Membranes at time of specimen collection. RULE OUT BETA S NOTE KOVACS (ROM) RUPTURE O NOTE KOVACS (ROM) RUPTURE O ROM Negative Negative ML Amniotic fluid not present indicates No Rupture of Membranes at time of specimen collection. URINE CULTURE NOTE KOVACS URINALYSIS, COM NOTE KOVACS URINALYSIS, COM WBC 5-10 SEEN /hpf 0-5 ML URINALYSIS, COM RBC 0 SEEN /hpf 0-5 ML URINALYSIS, COM EPI,SQUAMOUS 0-5 SEEN /hpf 5-10 ML URINALYSIS, COM BACTERIA 2+ /hpf None Seen ML URINALYSIS, COM MUCUS RARE /hpf <or=2+ ML URINE CULTURE NOTE KOVACS FIBRONECT NOTE OKVACS FIBRONECT FFIBRONECTIN Negative ML URINALYSIS, COM NOTE KOVACS URINALYSIS, COM WBC 0-5 SEEN /hpf 0-5 ML URINALYSIS, COM RBC 0-5 SEEN /hpf 0-5 ML URINALYSIS, COM EPI,SQUAMOUS 5-10 SEEN /hpf 5-10 ML URINALYSIS, COM BACTERIA 3+ /hpf None Seen ML URINALYSIS, COM MUCUS 0 SEEN /hpf <or=2+ ML GESTATIONAL GTT NOTE KOVACS GESTATIONAL GTT 3HR GTT- GEST. MG/DL ML FASTING 74 Col: 05/12/21 0958 GLUCOSE TOLERANCE TEST FOR Reference Interval GESTATIONAL DIABETES Fasting <105 mg/dL 1 hour <190 mg/dl 2 hour <165 mg/dl 3 hour <145 mg/dl 1 HR GLU 152 Col: 05/12/21 1103 2 HR GLU 121 Col: 05/12/21 1201 3 HR GLU 107 Col: 05/12/21 1303 GLUCOSE CHALLEN NOTE KOVACS GLUCOSE CHALLEN GLU GEST 50G 1H 157 mg/dL 70-140 H ML CBC-COMPLETE BL NOTE KOVACS CBC-COMPLETE BL WBC 10.6 K/mm3 4.4-11.0 ML CBC-COMPLETE BL RBC 3.92 M/mm3 4.2-5.4 L ML CBC-COMPLETE BL HGB 11.4 g/dL 12.0-15.0 L ML CBC-COMPLETE BL HCT 35.3 37-47 L ML CBC-COMPLETE BL MCV 90.1 fL 81-99 ML CBC-COMPLETE BL MCH 29.1 pg 27.0-32.0 ML CBC-COMPLETE BL MCHC 32.3 g/dL 32-36 ML CBC-COMPLETE BL RDW CV 12.7 11.6-14.6 ML CBC-COMPLETE BL RDW SD 41.7 fl 35.1-43.9 ML CBC-COMPLETE BL PLT 262 K/mm3 150-450 ML CBC-COMPLETE BL MPV 10.7 fl 6.2-12.0 ML URINE CULTURE NOTE KOVACS URINALYSIS, COM NOTE KOVACS URINALYSIS, COM WBC 0-5 SEEN /hpf 0-5 ML URINALYSIS, COM RBC 0 SEEN /hpf 0-5 ML URINALYSIS, COM EPI,SQUAMOUS 5-10 SEEN /hpf 5-10 ML URINALYSIS, COM BACTERIA 1+ /hpf None Seen ML URINALYSIS, COM MUCUS 2+ /hpf <or=2+ ML MISCELLANEOUS L NOTE KOVACS MISCELLANEOUS L MISC LAB TEST ML TEST RESULT LIMITS LDH 127 IU/L 119 - 226 [facility] AT [facility]. ORIGINAL REPORT ON FILE IN LAB CONTAINS ADDITIONAL TEST SITE INFORMATION. URIC ACID NOTE KOVACS URIC ACID URIC 2.0 mg/dL 2.6-6.0 L ML The drugs N-Acetylcysteine and Metamizole may falsely depress this assay. COMPREHENSIVE M NOTE KOVACS COMPREHENSIVE M GLU 86 mg/dL 74-106 ML Please note revised GLUCOSE reference range effective 10/15/2017. [facility] M BUN 9 mg/dL 7-18 ML COMPREHENSIVE M CREAT,SERUM 0.50 mg/dL 0.55-1.02 L ML The validity of the calculated GFR GFRAA in patients over 70 years has not been determined. Clinical correlation is essential. [facility] M EST GFR 166 mL/min >60 ML Non- GFR Calc COMPREHENSIVE M EST GFR - AA 200 mL/min >60 ML GFR Calc COMPREHENSIVE M BUN/CRE 18.1 RATIO 10-20 ML COMPREHENSIVE M T PROT 7.1 g/dL 6.4-8.2 ML [facility] M ALB 3.2 g/dL 3.2-5.0 ML [facility] M GLOB 3.9 g/dL 2.2-4.2 ML [facility] M A/G 0.8 RATIO 0.9-2.4 L ML [facility] M CA,TOTAL 9.7 mg/dL 8.5-10.1 ML [facility] M AST 10 U/L 15-37 L ML COMPREHENSIVE M ALK P 81 U/L 45-117 ML COMPREHENSIVE M ALT 19 U/L 13-56 ML [facility] M T BILI 0.20 mg/dL 0.20-1.00 ML For patients on eltrombopag therapy, use of Dimension Nep[place] TBIL is not recommended. [facility] M NA 139 mmol/L 136-145 ML [facility] M POTASSIUM 3.5 mmol/L 3.5-5.1 ML [facility] M CL 109 mmol/L 98-107 H ML [facility] M CO2 21.0 mmol/L 21.0-32.0 ML [facility] M GAP 9 5-15 ML CBC-COMPLETE BL NOTE KOVACS CBC-COMPLETE BL WBC 11.9 K/mm3 4.4-11.0 H ML CBC-COMPLETE BL RBC 4.01 M/mm3 4.2-5.4 L ML CBC-COMPLETE BL HGB 11.9 g/dL 12.0-15.0 L ML CBC-COMPLETE BL HCT 36.1 37-47 L ML CBC-COMPLETE BL MCV 90.0 fL 81-99 ML CBC-COMPLETE BL MCH 29.7 pg 27.0-32.0 ML CBC-COMPLETE BL MCHC 33.0 g/dL 32-36 ML CBC-COMPLETE BL RDW CV 13.2 11.6-14.6 ML CBC-COMPLETE BL RDW SD 43.5 fl 35.1-43.9 ML CBC-COMPLETE BL PLT 247 K/mm3 150-450 ML CBC-COMPLETE BL MPV 10.1 fl 6.2-12.0 ML HEPATITIS C ANT NOTE KOVACS HEPATITIS C ANT HEPATITIS C AB Non-Reactive Nonreactive ML Non Reactive: < 0.8 Equivocal: >/= 0.8 to < 1.0 Reactive: >/= 1.0 The CDC recommends that a reactive/equivocal HCV antibody result be followed up by the HCV Nucleic Acid Amplification test (131632) HEPATITIS B SYLVESTER NOTE KOVACS HEPATITIS B SYLVESTER HEP B SURF AG Non-Reactive Nonreactive ML HIV - [facility] NOTE KOVACS HIV - [facility] HIV Non-Reactive Nonreactive ML L509.8000 NOTE KOVACS L509.8000 SYPHILIS ABS Non-reactive ML RUBELLA IGG NOTE KOVACS RUBELLA IGG RUBELLA IGG Reactive Nonreactive ML Antibody Results Interpretation of Immune Status Non Reactive Presumed Non-Immune Equivocal Equivocal Reactive Presumed Immune PN N [facility]~[address] [place], [address]~ T AND AB SCREEN GEL NEGATIVE ML THYROID STIM HO NOTE KOVACS THYROID STIM HO TSH 0.53 uIU/mL 0.358-3.74 ML URINE DRUG SCRE NOTE KOVACS URINE DRUG SCRE VISTA UDS PH 6 ML URINE DRUG SCRE AMPHETAMINES NEGATIVE <1000 ng/mL ML URINE DRUG SCRE BARBITIURATES NEGATIVE < 200 ng/mL ML URINE DRUG SCRE BENZODIAZIPINE NEGATIVE < 200 ng/mL ML URINE DRUG SCRE COCAINE NEGATIVE < 300 ng/mL ML URINE DRUG SCRE ECSTACY NEGATIVE < 500 ng/mL ML URINE DRUG SCRE METHADONE NEGATIVE < 300 ng/mL ML URINE DRUG SCRE OPIATES NEGATIVE < 300 ng/mL ML URINE DRUG SCRE PCP NEGATIVE < 25 ng/mL ML URINE DRUG SCRE THC POSITIVE < 50 ng/mL A ML URINALYSIS, ROU NOTE KOVACS URINALYSIS, ROU COLOR Yellow Yellow ML URINALYSIS, ROU URINE CLARITY Cloudy Clear ML URINALYSIS, ROU GLUCOSE, UR Normal mg/dl Normal ML URINALYSIS, ROU BILIRUBIN URINE Negative mg/dL Negative ML URINALYSIS, ROU KETONE UR 15 mg/dl Negative A ML URINALYSIS, ROU SP.GR. DIPSTX 1.030 1.002-1.030 ML URINALYSIS, ROU PH UR 5.0 5.0 - 8.0 ML URINALYSIS, ROU PROT DIPSTX 30 mg/dl Negative A ML URINALYSIS, ROU UROBILI 1 mg/dl Normal A ML URINALYSIS, ROU NITRITE Negative Negative ML URINALYSIS, ROU OCCULT BLOOD-UR 10 /ul Negative A ML URINALYSIS, ROU LEUK ESTERASE 25 /ul Negative A ML CBC W/DIFF, AUT NOTE KOVACS CBC W/DIFF, AUT WBC 7.7 K/mm3 4.4-11.0 ML CBC W/DIFF, AUT RBC 4.72 M/mm3 4.2-5.4 ML CBC W/DIFF, AUT HGB 13.2 g/dL 12.0-15.0 ML CBC W/DIFF, AUT HCT 42.0 37-47 ML CBC W/DIFF, AUT MCV 89.0 fL 81-99 ML CBC W/DIFF, AUT MCH 28.0 pg 27.0-32.0 ML CBC W/DIFF, AUT MCHC 31.4 g/dL 32-36 L ML CBC W/DIFF, AUT RDW CV 12.6 11.6-14.6 ML CBC W/DIFF, AUT RDW SD 41.2 fl 35.1-43.9 ML CBC W/DIFF, AUT PLT 260 K/mm3 150-450 ML CBC W/DIFF, AUT MPV 10.4 fl 6.2-12.0 ML CBC W/DIFF, AUT NEUT% 73.2 47-70 H ML CBC W/DIFF, AUT LY% 21.1 19-41 ML CBC W/DIFF, AUT MONO% 4.3 0-10 ML CBC W/DIFF, AUT EO% 0.8 0-5 ML CBC W/DIFF, AUT BASO% 0.3 0-1 ML CBC W/DIFF, AUT IG% 0.300 0.0-0.9 ML IG% - Immature Granulocytes (promyelocytes, myelocytes and metamyelocytes) > 1% indicates that a LEFT SHIFT is Present. CBC W/DIFF, AUT ABSOLUTE NEUT 5.7 X10 3/uL 2.0-7.7 ML CBC W/DIFF, AUT ABSOLUTE LYMPH 1.63 X10 3/uL 0.83-4.51 ML CBC W/DIFF, AUT NUCLEATED RBC 0 0-5 ML PAP TEST I-G NOTE KOVACS PAP TEST I-G DIAG Comment . [facility] NEGATIVE FOR INTRAEPITHELIAL LESION OR MALIGNANCY. THIS SPECIMEN WAS RESCREENED PART OF OUR ACCOUNT OFFICER PROGRAM. PAP TEST I-G ADEQ Comment . [facility] Satisfactory for evaluation. Endocervical and/or squamous metaplastic cells (endocervical component) are present. PAP TEST I-G PERFORM Comment . GIGI Evans, Professor Of Communication And Writing (ASCP) PAP TEST I-G QC REV Comment . GIGI Pardo, Supervisory Professor Of Communication And Writing (ASCP) This liquid based ThinPrep(R) pap test was screened with the use of an image guided system. Performed at: [address] [id number] Traffic Attendant: Flor Rodriguez MD, Phone: [phone] PAP TEST I-G COMM . . [facility] PAP TEST I-G PAPSMR Comment . [facility] The Pap smear is a screening test designed to aid in the detection of premalignant and malignant conditions of the uterine cervix. It is not a diagnostic procedure and should not be used as the sole means of detecting cervical cancer. Both false-positive and false-negative reports do occur. CHLAMYDIA/GC NA NOTE KOVACS CHLAMYDIA/GC NA CHLAMY,NUC ACID Negative Negative [facility] CHLAMYDIA/GC NA GC BY NUC ACID Negative Negative [facility] Performed at: =[address] [id number] Traffic Attendant: Flor Rodriguez MD, Phone: [phone] Streptococcus agalactiae (B) Amount Growth Growth Streptococcus agalactiae (B): REACTION Ampicillin <=0.25 Penicillin G 0.12 S Ceftriaxone <=0.12 S Clindamycin <=0.25 S Clindamycin.induced NEG Linezolid <=2 S Vancomycin 0.5 S Below infection level. Mixed Gram Positive Organisms [place] Count 1000-10,000 Mixed Gram Positive Organisms [place] Count 80,000-100,000 MIXC Mixed contaminants. Submit a new specimen if indicated. Mixed Gram Positive Organisms [place] Count 25,000-50,000 MIXC Mixed contaminants. Submit a new specimen if indicated. A POSITIVE == ==== Impression /Plan: 38 wks + 4 days intrauterine with SROM in early labor. Preparations in progress for delivery.
[2021-07-16 13:55] LABS: Amphetamine Urine VISTA NEGATIVE (<1000 ng/mL); Barbiturate Urine VISTA NEGATIVE (< 200 ng/mL); Benzodiazepine Urine VISTA NEGATIVE (< 200 ng/mL); Cocaine Urine VISTA NEGATIVE (< 300 ng/mL); Ecstacy Urine VISTA NEGATIVE (< 500 ng/mL); Methadone Urine VISTA NEGATIVE (< 300 ng/mL); PCP Urine VISTA NEGATIVE (< 25 ng/mL); THC Urine VISTA NEGATIVE (< 50 ng/mL); Vista UDS pH Range 6
[2021-07-16] MEDS: Oxytocin 30 units/NS 500 ml 30 UNITS/500 ML IV.SOLN IV (14:14)
[2021-07-16] MEDS: Lactated Ringers 500 ML 999 ML IV ×2 (15:07→16:43)
[2021-07-16] MEDS: fentaNYL-bupivacaine (epidural) 100 ML BAG EPIDURAL (15:50)
[2021-07-16] MEDS: Oxytocin 30 units/NS 500 ml 30 UNITS/500 ML IV.SOLN 334 UNITS IV (19:35)
--- NOTE | 2021-07-16 19:44 | EX.PCM.OBRPT ---
Maternal Data Information Final ÁNGEL: 07/26/21 Gestational age: 38+ weeks Vaginal Delivery Maternal Presentation Maternal Presentation: Active Labor and Spontaneous Rupture of Membranes Operative Information Date of Procedure: 07/16/21 Pre-Operative Diagnosis: IUP Post-Operative Diagnosis: IUP Surgery / Procedure Performed: Vacuum Assisted Vaginal Delivery Type of Anesthesia: Epidural Drain: Boyd to straight drain Estimated Blood Loss: 250 cc Fluids Replaced: Crystalloid Findings Description of Procedure: Spontaneous vaginal delivery of a viable female with Apgars of 8/8 from an occiput anterior presentation with clear amniotic fluid and normal three-vessel placenta. Cord around the shoulder x1 tight. No episiotomy or laceration. Kiwi vacuum used x1 gentle pull from to expedite delivery of the head due to deep decelerations in the 60s. Sponges okay. Delivery physician: Brady Bazan MD. Presentation: Vertex Amniotic Membrane Rupture Type: Spontaneous Amniotic Fluid Description: Clear Placental Delivery Description: Spontaneous Placenta Disposition: [facility] Cord Vessel Description: 3 Vessels Cord Entanglement: - (Around shoulder x1 tight) Cord Gases: ABG Infant A Gender: Female (1 minute): 8 (5 minute): 8 Post Vaginal Delivery Medications Given After Delivery: IV Pitocin Episiotomy Description: None Laceration: None Complication Complications: None
--- NOTE | 2021-07-16 19:48 | PCM.DC ---
Documented by User: Dr. Brady Bazan MD 07/16/21 20:15 Discharge Instructions Diet Discharge Diet: No restrictions Activity Discharge Activity: May Drive (In 1 to 2 days if not taking narcotic pain medication), May Shower and May Take a Tub Bath May resume sexual activity in: 4-6 weeks Additional Activity Instructions:: Nothing in the vagina for 4-6 weeks. You may return to work/school in 6 weeks. Dressing / Incision Call your doctor if you observe: Fever of 101 or Higher, Inability to urinate, Inability to have a bowel movement and Using more than 1 pad per hour Follow Up Care Please Follow Up With: Brady Bazan MD When: Call [phone] to make an appointment with your doctor in 6 weeks. Test Results: Test results from this visit will be discussed in further detail at your follow-up appointment, if applicable. Discharge Plan Admission Admit Date/Time: 07/16/21 12:10 Primary Reason for Your Visit: Spontaneous Vaginal Delivery Attending Provider: Brady Bazan Primary Care Provider: Care Physician,No Primary Discharge Orders/Prescriptions Prescriptions: No Action 1 mg Tablet 1 tab PO DAILY RF: 0 Referrals / Follow Up: Care Physician,No Primary [Primary Care Provider] - Disposition Disposition (needs filled in before D/C Order can be placed): Home, Self Care Documented by User: Dr. Ning Sylvester DO 07/18/21 08:29 Discharge Instructions Diet Discharge Diet: No restrictions Activity Discharge Activity: Return to Normal Activity and May Shower May resume sexual activity in: 4-6 weeks Weight Bearing Status: Weight bearing as tolerated Lifting Restrictions: No greater than 25 pounds Dressing / Incision Call your doctor if you observe: Fever of 101 or Higher, Change in Color, Inability to urinate, Using more than 1 pad per hour, Shortness of breath, Dizziness, Swelling in the ankles, Chest pain and Calf discomfort Follow Up Care Please Follow Up With: Brady Bazan MD When: 2-week telehealth appointment and 6-week visit Discharge Plan Admission Admit Date/Time: 07/16/21 12:10 Primary Reason for Your Visit: Spontaneous Vaginal Delivery Attending Provider: Brady Bazan Primary Care Provider: Care Physician,No Primary Discharge Orders/Prescriptions Prescriptions: No Action 1 mg Tablet 1 tab PO DAILY RF: 0 Referrals / Follow Up: Care Physician,No Primary [Primary Care Provider] - Disposition Disposition (needs filled in before D/C Order can be placed): Home, Self Care
[2021-07-17] VITALS: BP 128/65; PULSE 71; RESP 18; TEMP 36.8; O2SAT 96
[2021-07-17 03:07] VITALS: BP 121/53; PULSE 73; RESP 16; TEMP 36.9; O2SAT 97
[2021-07-17] MEDS: Ibuprofen 600 MG Tablet PO ×3 (03:14→21:10)
[2021-07-17 08:26] VITALS: BP 125/63; PULSE 73; RESP 14; TEMP 36.7
--- NOTE | 2021-07-17 09:05 | PCM.PN.OB ---
Subjective Subjective No overnight complaints. Pain well controlled. Objective Data Objective Data Vital Signs: Vital Signs Temp Pulse Resp BP Pulse Ox 98.0 F 73 14 125/63 H 97 07/17/21 08:26 07/17/21 08:26 07/17/21 08:26 07/17/21 08:26 07/17/21 03:07 Oxygen Delivery Method Room Air Weight: 262 lb 6.4 oz Body Mass Index (BMI) 46.5 Intake & Output: Intake and Output for Last 24 Hours 07/15/21 07/16/21 07/17/21 23:59 23:59 23:59 Intake Total 2397.63 / 2397.63 Output Total 1000 / 1000 1100 / 1100 Balance 1397.63 / 1397.63 -1100 / -1100 Lab / Micro Data Result Diagrams: 07/16/21 12:40 Labs: Laboratory Results - last 24 hr 07/16/21 11:25: Vag Amniotic Fld Detect POSITIVE H 07/16/21 12:40: WBC 11.0, RBC 3.86 L, Hgb 11.1 L, Hct 33.9 L, MCV 87.8, MCH 28.8, MCHC 32.7, RDW Std Deviation 43.1, RDW Coeff of Jennie 13.4, Plt Count 261, MPV 10.2, Immature Gran % (Auto) 0.400, Neut % (Auto) 76.3 H, Lymph % (Auto) 16.2 L, Patrick % (Auto) 6.3, Eos % (Auto) 0.5, Baso % (Auto) 0.3, Absolute Neuts (auto) 8.4 H, Absolute Lymphs (auto) 1.79, Nucleated RBC % 0 07/16/21 12:40: Blood Type A POSITIVE, Antibody Screen NEGATIVE 07/16/21 13:20: Urine Opiates Screen NEGATIVE, Urine Methadone Screen NEGATIVE, Ur Barbiturates Screen NEGATIVE, Ur Phencyclidine Scrn NEGATIVE, Ur Amphetamines Screen NEGATIVE, U Methamphetamin-MDMA NEGATIVE, U Benzodiazepines Scrn NEGATIVE, Urine Cocaine Screen NEGATIVE, U Cannabinoids Screen NEGATIVE, Ur Drug Screen Comment Physical Exam Const alert, oriented x3, no apparent distress, average body habitus, healthy appearing and well nourished HEENT normocephalic and moist oral mucous membranes Head and Scalp: atraumatic Face and Sinus: normal facial exam Eyes PERRL Neck full ROM Resp normal respiratory effort, no retractions and no use of accessory muscles Extremity normal to inspection, full ROM and no clubbing, cyanosis or edema Psych mental status grossly normal, affect normal, speech normal and activity/motor behavior normal Assessment & Plan (1) Vaginal delivery: PLAN: day 1 status post vacuum-assisted vaginal delivery. Breast and formula feeding. Pain well controlled. Possibly home today versus tomorrow
[2021-07-17 11:25] VITALS: BP 115/45; PULSE 81; RESP 14; TEMP 36.6; O2SAT 97
--- NOTE | 2021-07-17 12:44 | NURSING ---
This assistant professor of nursing reviewed the documentation completed by Breann Carmen, student nurse.
--- NOTE | 2021-07-17 15:46 | CASEMGMT ---
Social Work Labor and Delivery Consult received for history of THC. Chart reviewed. Plan to see MOB on 07.18.2021 in the morning hours. -SUNNY Holt, COMMUNICATIONS OPERATOR
[2021-07-17 16:10] VITALS: BP 108/71; PULSE 74; RESP 14; TEMP 36.9
[2021-07-17 21:02] VITALS: BP 119/63; PULSE 70; RESP 18; TEMP 37.2
[2021-07-18 02:55] VITALS: BP 114/73; PULSE 66; RESP 18; TEMP 36.7
--- NOTE | 2021-07-18 08:30 | PCM.PN.OB ---
Subjective Subjective day 2. Lochia minimal. Breast-feeding for now and then will formula feed. Objective Data Objective Data Vital Signs: Vital Signs Temp Pulse Resp BP Pulse Ox 98.1 F 66 18 114/73 97 07/18/21 02:55 07/18/21 02:55 07/18/21 02:55 07/18/21 02:55 07/17/21 11:25 Oxygen Delivery Method Room Air Weight: 119.023 kg Body Mass Index (BMI) 46.5 Intake & Output: Intake and Output for Last 24 Hours 07/16/21 07/17/21 07/18/21 23:59 23:59 23:59 Intake Total 2397.63 / 2397.63 Output Total 1000 / 1000 1100 / 1100 Balance 1397.63 / 1397.63 -1100 / -1100 Lab / Micro Data Result Diagrams: 07/16/21 12:40 Physical Exam Const alert, oriented x3 and no apparent distress HEENT normocephalic Head and Scalp: atraumatic Neck full ROM Resp normal respiratory effort Cardio regular rate GI normal to inspection, nondistended, normoactive bowel sounds GI Narrative: Uterus 2 cm below umbilicus Back/Spine normal ROM Extremity normal to inspection Extremity Narrative: Minimal pedal edema Neuro no focal motor deficits and no sensory deficits noted Psych mental status grossly normal and affect normal Assessment & Plan (1) Vaginal delivery: PLAN: day 2 status post . Feeling well. Follow-up with primary care for her hemorrhoid management. Currently breast-feeding and will transition to formula feeding on discharge. Home today. 2-week telehealth visit in 6-week visit.
[2021-07-18 09:01] VITALS: BP 127/70; PULSE 70; RESP 18; TEMP 36.9
[2021-07-18] MEDS: Ibuprofen 600 MG Tablet PO (09:11)
--- NOTE | 2021-07-18 10:45 | CASEMGMT ---
Social Work Assessment Labor and Delivery Unit Patient Address: [place] [address] Phone number: [phone]; alternate number [phone] Date of Referral: 07/16/2021; 07/18/2021 Time of Referral: 523 Referred By: Dr. Leblanc; Dr. Bazan Date of Intervention: 07/18/2021 Time of Intervention: 1045 Reason for Referral: Maternal history of THC use resources History obtained from: Medical records including prior social work assessment, and mother of baby (MOB) Corrie Orozco; father of baby (FOB) Micky Jiménez present for part of conversation Household composition: MOB and FOB, along with older child lives in a 1 bedroom apartment. Plan to take infant to this home as well. Home situation is reported as safe and adequate at this time although family wants to get a larger apartment. Patient's parent/guardian status: CARLITO is a 21-year-old single female, involved with the FOB for the last 3 years. MOB denies any type of abuse or safety concerns in this relationship. MOB and FOB now have 2 children together. Zaina Marks was born in 10/30/2019 and then baby girl Kasandra Pacheco, born 07/16/2021. Medical History: CARLITO is 3, para 1 now 2 after delivering Kasandra. No reported issues with care. Per prior social work assessment, as reported by MOB: MOB reported a miscarriage when MOB was a child herself, conception from trauma MOB had experienced, and then when MOB miscarried was reportedly told may have difficulty conceiving and carrying a child to term later in life. Reports 2nd and miscarriage as an adult from a relationship before involvement with FOB, then a miscarriage at 8 weeks gestation in October 2018, and then conception with Zaina. Based on MOB path report to this flex o writer operator, MOB would be 5 rather than 3 as reported in current medical record. Educational Status: MOB graduated from high school and attended cosmetology training program. MOB reportedly had an IEP in school for reading. Reported history of ADD. Financial Status: DELONTE is on SSDI and main source of income from his family. MOB reports plan to eventually turn to [employer], in a month, in September. MOB been reported that would be off for 1 to 2 months until September.. Supplies: MOB and FOB report to have necessary infant supplies including bassinet, car seat, clothing, diapers, wipes. Reports to have both formula and bottles. Childcare/Caregiver(s): MOB and FOB will be the primary caregivers and then FOB via primary caregiver once MOB returns to work. Transportation: MOB reports to have a pile driver operator helper's license and a vehicle. FOB does not have a pile driver operator helper's license due to history of seizures. Programs/Agencies Involved: MOB reports to have medical and food through job and family services. Active with [facility]. On the waiting list for [facility]. Verbally agrees for early Headstart referral. Children Services/Legal Issues: MOB denies any legal issues and denies any children services involvement since Zaina was born. Per prior social work assessment, as a minor the mother of baby did have a history of children services due to sexual abuse issues, which was reportedly the MOB older brother (6 years older than the MOB). The father reportedly went into a treatment facility and does not have to register as a sex offender. MOB also had an additional perpetrator, which was the MOB father who is currently incarcerated for at least 20 years due to the offense. Behavioral Health Issues: Mental Health History: MOB reports to have a history of social anxiety. Initially denied having any depression or anxiety after Zaina was born. The FOB interjected and reported that the MOB cried for about a month. MOB reportedly coped by talking to the FOB. Denies any thoughts of suicide or harm to other people. Completed [place] depression screen with the MOB this date and the score was a 4, which is below the threshold for depression. Substance Use History: MOB denied any type of substance use or illicit substance use during this . When both positive drug screen MOB reports there is one time at a republican that may have drank and used THC. But denies use outside of that. Prior social work assessment indicates maternal history of THC use. Prior social work assessment indicates in the past, prior to any children the MOB having history of experimenting with cocaine and meth, K2 and spice with the latter being the MOB drug of choice. Recovery around the age of 14.. Was reported that the MOB father introduced substances into the MOB life. Family History: MOB father with possible history of substance use issues, currently incarcerated for abuse to the MOB when she was a minor. MOB older brother with a history of abuse to the MOB. MOB mother with a history of bipolar disorder.It is reported that the FOB has a history of absence seizures which have reportedly gotten better since Zaina was born but now has developed diabetes. The FOB does reportedly use THC. Reportedly uses outside of the home and away from Zaina. Drug Screens: Maternal drug screen positive for THC on 12/30/2020. Negative at delivery on 07/16/2021. Infant's urine is negative. Meconium is pending. Family/Social Stressors: The main stressed identified at this time is the fact the family is living in a 1 bedroom apartment. FOB reports that nobody wants to rent to children and having difficulty finding a larger home. Support Systems: MOB reports that FOB, MOB best friend Robinson, and MOB mother Kasey main support systems. Reports that can talk to Robinson about anything. Also reports to have 1 or 2 female friends she can talk to. Depression/Shaken Baby/Safe Sleeping: Reviewed safe sleeping and shaken baby prevention. Educated to mood and anxiety disorders, risk factors, and importance of seeking out help and support should symptoms arise. Reinforced and normalized that should symptoms arise MOB is not lacking as a parent, but that is something that can happen to anyone. ASSESSMENT: Met with the MOB and FOB together and then alone with the MOB. While meeting with the parents together, both engaged in conversation, appropriate and cooperative with this flex o writer operator. Parents report to have necessary supplies to care for both children and will have support at home going as the FOB is at home and does not work. During private conversation with the MOB addressed MOV domestic violence, depression screening, and substance use. MOB reports she did not use marijuana throughout the , and plans to continue abstinence in the timeframe. Educated MOB it is not recommended to provide breast milk and use THC at the same time. Encourage abstinence. Discussed with the MOB the importance of the father of baby not taking care of the children after using THC, especially when he is the primary caregiver to the children when MOB is working. MOB expressed understanding. Educated MOB that due to infant substance exposure in utero, children services may need to follow-up. No questions voiced by the MOB regarding this information. MOB accepted a packet on [facility], mood and anxiety disorder packet, and AN early Headstart referral. Safe Plan of Care for infant related to substance use: Continued abstinence of marijuana. We will not use marijuana and provide breastmilk. No adult to care for the children after using any type of substance. PLAN: MOB and will discharge home. Will make early Headstart referral. Will notify children services to substance exposed in utero, as well as other dependency risk factors for this family. -JUAN DANIEL Holt, PROFILER HAND *This note was generated with [employer] software. It may contain incorrect words, spelling, and punctuation that were not noted in review of the chart prior to signing*
--- NOTE | 2021-07-18 15:00 | CASEMGMT ---
Social Work Labor and Delivery Unit Mother of baby (MOB) signed early Headstart referral form. Fax referral form to confirmed fax at [facility]. Called [facility] children services and spoke with Chika Liu in the intake department, extension [phone]. Referral to substance exposed in utero, father of baby's history of THC use, housing stressor, and brief maternal and infant histories. Plan: MOB and will discharge home when ready. Early Headstart referral and children services referral have both been made. Information on community resources and mood and anxiety disorders have been provided to the MOB. -SUNNY Holt, SPECIFICATIONS WRITER *This note was generated with [employer] dictation software. It may contain incorrect words, spelling, and punctuation that were not noted in review of the chart prior to signing*
== END 2021-07-18 12:40 | disposition home or self-care (01) | DRG 560 ==
LOC: WPOUT 12:16 → WP 19:43
PROVIDERS: Admitting Provider Obstetrics & Gynecology; Referring Provider Obstetrics & Gynecology; Visit Provider Obstetrics & Gynecology
DX: O76 Abnormality in fetal heart rate and rhythm complicating labor and delivery (principal); O69.2XX0 Labor and delivery complicated by other cord entanglement, with compression, not applicable or unspecified; Z3A.38 38 weeks gestation of pregnancy; Z37.0 Single live birth; Z86.16 Personal history of COVID-19; Z87.891 Personal history of nicotine dependence; O99.824 Streptococcus B carrier state complicating childbirth; O47.03 False labor before 37 completed weeks of gestation, third trimester
CPT/HCPCS: 59025; 59050; 80307; 84112; 85025; 86850; 86900; 86901; 99218; J7120; G0378

== ENCOUNTER 2021-09-07 19:08 | Emergency (ER) | payer MEDICAID, SELFPAY ==
[2021-09-07 19:09] VITALS: BP 154/89; PULSE 83; RESP 18; TEMP 35.8; O2SAT 96; BMI 42.9
--- NOTE | 2021-09-07 19:35 | RAD_ITS ---
STUDY: X-RAY CHEST REASON FOR EXAM: Female, 21 years old. Chest pain/pressure TECHNIQUE: Single AP portable view of the chest. COMPARISON: None. FINDINGS: EKG leads overlie the chest The lungs are clear and expanded. There is no demonstrated pleural abnormality. Normal size heart. Normal mediastinum and jeanne. Normal visualized pulmonary arteries. Normal visualized aortic arch and descending thoracic aorta. Normal visualized thoracic spine. Normal visualized ribs, clavicles, and shoulders. There is no demonstrated abnormality of the visualized soft tissue structures of the upper abdomen. RAD/Chest 1 View (Portable) IMPRESSION: Normal x-ray examination of the chest. Electronically Signed: Leif Mead MD at 20:37 EST , Service support ,
--- NOTE | 2021-09-07 19:44 | EKG12_ITS ---
Test Reason : CP Blood Pressure : / mmHG Vent. Rate : 073 BPM Atrial Rate : 073 BPM P-R Int : 150 ms QRS Dur : 088 ms QT Int : 362 ms P-R-T Axes : 017 073 032 degrees QTc Int : 398 ms Normal sinus rhythm Normal ECG Confirmed by SOBEIDA LAU MD ([id number]), supervising film or videotape editor FE VALEDS ([id number]) on 09/09/2021 9:56:58 AM Referred By: JAMEEL Confirmed By:SOBEIDA LAU MD
--- NOTE | 2021-09-07 19:45 | ED.VIS.CHEST ---
HPI History of Present Illness Chief Complaint: Chest Pain Informant: patient Onset/Context/Timing Onset: Today Activity at onset: gradual Timing: Intermittent Location: Right Chest and Left Chest Current Severity: Mild Maximum Severity: Mild Worsened By: Breathing; Not Worsened By Exertion, Movement of Arm, Movement of Torso, Eating, Palpation and Coughing Relieved By: Nothing Associated Symptoms: Negative for Nausea, Vomiting, Diaphoresis, Dyspnea, Cough, Fever, Lightheadedness and Acid Reflux Narrative Narrative: 21-year-old female history of asthma. Currently on control pills. She just had a vaginal delivery about 8 weeks ago. Said today around 5 AM she did. Noticed chest pain with deep breathing. No prior history of DVT or PE. No leg pain or swelling. No hemoptysis. She has had no recent travel or surgery. She denies any fever or cough. Prior Similar Symptoms: No Recent Illness/Hospitalization: No CVD Risk Factors: Negative for Hypertension, Diabetes, Hypercholesterolemia, Family History 1' </=55 and Smoking PE Risk Factors: Positive for Recent Immobilization; Negative for Recent Travel/Surgery, Prior DVT or PE, Cancer and OCP + Smoking + >/=35 TAD Risk Factors: Negative for Marfan's Syndrome and Hypertension [facility] Medical History Arthritis Asthma COVID-19 Encounter for screening for COVID-19 False labor before 37 completed weeks of gestation Family history of hearing loss at age younger than 7 years history of ear tubes Seasonal allergies Shortness of breath Home Medications [id number] [] 1 tab PO DAILY 06/22/21 [History Last Taken 07/12/21] Allergy/AdvReac Type Severity Reaction Status Date / Time bee venom protein (honey bee) Allergy Severe Anaphylaxis Verified 09/07/21 19:11 latex Allergy Mild Rash Verified 09/07/21 19:11 Penicillins AdvReac Vomiting Verified 09/07/21 19:11 Surgical History History of surgery Social History Smoking Status: Former smoker alcohol intake: never ROS ROS ED ROS Narrative Pleuritic chest pain Review of Systems ROS Unobtainable: Denies due to encephalopathy Constitutional Constitutional ED: Denies fever(s) Eyes Eyes: Denies none ENT ENT ED: Denies ear pain Cardiovascular Cardiovascular: Reports as per HPI and chest pain; Denies palpitations or racing heartbeat Respiratory/Chest Respiratory/Chest: Denies cough or dyspnea Gastrointestinal Gastrointestinal: Denies abdominal pain, diarrhea, nausea or vomiting Musculoskeletal Musculoskeletal: Denies myalgias Integumentary Denies rash Neurologic Neurologic: Denies headache(s) Psychiatric Psychiatric: Denies depression Endocrine Endocrinology: Denies polyuria Hematologic/Lymphatic Hematologic/Lymphatic: Denies easy bruising Allergic/Immunologic Allergic/Immunologic ED: Denies urticaria EXAM Physical Exam Narrative Exam Narrative: 19-year-old female no acute distress vital signs stable afebrile. Pulse ox 96% on room air no signs of hypoxia. Blood pressure 134/89. H EENT exam unremarkable. Neck nontender no JVD. Lungs are clear to auscultation bilaterally. No rales rhonchi or wheezing. Chest wall nontender. Abdomen soft nontender normal bowel sounds no peritoneal signs. Moving all 4 extremities. Calves are nontender without edema or cords. She is awake and alert. Const Vital Signs: 09/07/21 19:09 09/07/21 20:04 09/07/21 20:30 Temperature 96.5 F L Temperature Source Temporal Pulse Rate 83 73 Respiratory Rate 18 19 H Respiratory Effort Normal Respiratory Pattern Normal Blood Pressure 154/89 H 127/67 H Blood Pressure Mean 110 87 Pulse Ox 96 98 Oxygen Delivery Method Room Air Room Air Room Air Positive well nourished, well developed and obese; Negative for cachectic, contractures or unkempt General Appearance ED: well developed and NAD; Negative for unkempt, cachectic, contractures or pallor Nutritional Appearance: obese; Negative for cachectic HEENT Reports moist mucous membranes normocephalic and atraumatic; Negative for trauma or tenderness Eyes PERRL and EOMs intact bilaterally General Eye ED: Negative for pale conjunctiva or scleral icterus Neck no lymphadenopathy, supple and no JVD General: Negative for tenderness Chest Wall inspection of chest normal and palpation of chest normal Chest: Negative for tenderness Resp normal respiratory effort and clear to auscultation bilaterally Effort and Inspection: Negative for respiratory distress Auscultation: Negative for rales or rhonchi Cardio regular rate, regular rhythm, S1 normal heart sound, S2 normal heart sound and no murmurs Rate: Negative for bradycardia or tachycardic GI normal to inspection, nondistended, normoactive bowel sounds, soft to palpation, non-tender, non-distended and no masses; Negative for hepatosplenomegaly Auscultation: Negative for hyperactive bowel sounds Palpation: Negative for splenomegaly Back/Spine no CVA tenderness General Back: Negative for CVA tenderness Extremity normal to inspection General Extremety ED: Negative for edema or tenderness General Extremity: Negative for edema Neuro oriented x3 Sensorium / Orientation: awake, alert, oriented to person, oriented to place and oriented to time Motor Exam: strength 5/5 throughout; Negative for strength abnormal Psych mental status grossly normal Appearance: Negative for unkempt Mood & Affect: Negative for depressed or tearful Skin no rashes or lesions noted and no wounds General Skin Exam: Negative for jaundice or pallor MDM MDM MDM Narrative Medical decision making narrative: 21-year-old female recent delivery 2 months ago with pleuritic chest pain. She never had a DVT or PE. She is also overweight on control pills. I told it is cardiac etiology consider pulmonary emboli. She undergo a cardiac work-up with a D-dimer. Repeat exam patient doing well at 9:29 PM. Vital signs are stable. Pulse ox 98% on room air. She and I discussed all of her test results. She is comfortable being discharged home. Lab Data Attestation: I reviewed the patient's lab results. Lab results narrative: CBC normal white count of 7. Hemoglobin 12.1. D-dimer elevated 0.92 so a CTA of the chest to be obtained. Chemistries show a anion gap is 7 normal BUN and creatinine. Troponin less than 3. Discharge chest x-ray is negative. Labs: Laboratory Results - last 24 hr 09/07/21 09/07/21 09/07/21 19:55 19:55 19:55 WBC 7.5 RBC 4.34 Hgb 12.1 Hct 38.1 MCV 87.8 MCH 27.9 MCHC 31.8 L RDW Std Deviation 43.2 RDW Coeff of Jennie 13.3 Plt Count 297 MPV 9.8 Immature Gran % (Auto) 0.300 Neut % (Auto) 66.4 Lymph % (Auto) 26.5 [place] % (Auto) 5.6 Eos % (Auto) 0.8 Baso % (Auto) 0.4 Absolute Neuts (auto) 5.0 Absolute Lymphs (auto) 1.99 Nucleated RBC % 0 D-Dimer Quant (PE/DVT) 0.92 H* Sodium 140 Potassium 3.6 Chloride 109 H Carbon Dioxide 24.0 Anion Gap 7 BUN 14 Creatinine 0.85 Estim Creat Clear Calc 89.65 Est GFR (MDRD) Af Amer 108 Est GFR (MDRD) Non-Af 89 BUN/Creatinine Ratio 16.5 Glucose 107 H Calcium 10.1 Troponin I High Sens < 3 L Radiography Chest X-Ray - ED: 1 View, Read by ED Physician, Heart, Lungs, Mediastinum, Bony Structures, No Acute Disease and Chronic Changes Diagnostic Testing: Clinical Impression(s) from Imaging Studies Chest X-Ray 09/07/21 19:35 IMPRESSION: Normal x-ray examination of the chest. Electronically Signed: Leif Mead MD at 20:37 EST , Service support , Chest CTA 09/07/21 20:17 IMPRESSION: Normal CTA chest examination, without a demonstrated pulmonary embolism or arterial dissection. No interval change Electronically Signed: Leif Mead MD at 21:17 EST , Service support , Plain chest x-ray, portable, single view interpreted by myself shows no acute abnormality. Normal cardiac silhouette. No infiltrate. CTA no acute abnormality. No PE per the radiologist and reviewed by me. Rhythm Strip Rhythm Strip: Sinus Rhythm Rate: 73 Ectopy: None EKG Initial EKG: Attestation: I personally reviewed and interpreted this EKG as follows: Interpretation: Sinus Rhythm and No Acute Injury Pattern Comments: Normal sinus rhythm rate of 73 no acute signs of GA nor ischemia. Patient does have a S1Q3T3. EKG is unchanged from her prior from May. Prior EKG tracings: available for review Prior: Unchanged Discharge Plan Triage Chief Complaint: Chest Pain Other Complaint: Ear Problem ED Provider: Gurmeet Hough Dx/Rx/DC Orders Clinical Impression: Pleurisy Instructions: ED Pleurisy Prescriptions: No Action 1 mg Tablet 1 tab PO DAILY RF: 0 Primary Care Provider: Care Physician,No Primary Referrals: Ronald Arvizu MD [STAFF PHYSICIAN] - 1 Week if not improving Care Physician,No Primary [Primary Care Provider] - Activity Restrictions/Additional Instructions: Your chest pain is consistent with pleurisy. That should improve with Motrin or ibuprofen for pain. The rest your labs, chest x-ray and CAT scan were unremarkable. Disposition Disposition: Home, Self Care
[2021-09-07 20:04] LABS: Absolute Lymphocyte Count 1.99 X10^3/uL (0.83-4.51); Basophil# 0.03 X10^3/uL; Basophil% 0.4 % (0-1); Eosinophil# 0.06 X10^3/uL; Eosinophils% 0.8 % (0-5); Hematocrit 38.1 % (37-47); Hemoglobin 12.1 g/dL (12.0-15.0); Lymphocyte # 1.99 X10^3/ul (0.83-4.51); Lymphocyte % 26.5 % (19-41); Mean Corp Hgb Conc 31.8 g/dL (32-36); Mean Corpuscular Hgb 27.9 pg (27.0-32.0); Mean Corpuscular Volume 87.8 fL (81-99); Mean Platelet Vol. 9.8 fl (6.2-12.0); Monocyte# 0.42 X10^3/uL; Monocyte% 5.6 % (0-10); NRBC Flagged by Analyzer 0 % (0-5); Neutrophil # 4.99 X10^3/uL (2.7-7.7); Neutrophil % 66.4 % (47-70); Platelet Count 297 K/mm3 (150-450); RBC Distribution Width CV 13.3 % (11.6-14.6); RBC Distribution Width SD 43.2 fl (35.1-43.9); Red Blood Count 4.34 M/mm3 (4.2-5.4); White Blood Count 7.5 K/mm3 (4.4-11.0)
[2021-09-07 20:16] LABS: D-Dimer Quantitative (DVT/PE) 0.92 FEU/ug/m (0.27-0.49)
--- NOTE | 2021-09-07 20:17 | CT_ITS ---
STUDY: CTA CHEST REASON FOR EXAM: Female, 21 years old. Chest pain, elevated d-dimer RADIATION DOSAGE (If Supplied By Facility): CTDIvol = ( 11.60 ) mGy, DLP = ( 468.33 ) mGycm TECHNIQUE: The examination was performed with the intravenous administration of IV 100mL Isovue-370. Post-processing of the angiographic images was performed, with multiplanar reformation and 3D reconstruction. Individualized dose optimization techniques were used for this CT. COMPARISON: 06/06/2021 FINDINGS: There is limited enhancement of the main pulmonary artery and right and left pulmonary arteries. There is limited enhancement of the bilateral peripheral pulmonary arteries. There is no demonstrated pulmonary embolism. Normal thoracic aorta and visualized great vessels. There is no demonstrated aortic dissection. Normal heart and pericardium. Normal mediastinum. Normal hilar regions. Normal visualized trachea and bronchi. The lungs are well expanded. Normal pulmonary parenchyma. Normal pleura. Normal chest wall structures. Normal osseous structures. Normal visualized upper abdomen. CT/CTA Chest W/WO Contrast IMPRESSION: Normal CTA chest examination, without a demonstrated pulmonary embolism or arterial dissection. No interval change Electronically Signed: Leif Mead MD at 21:17 EST , Service support ,
[2021-09-07 20:22] LABS: Anion Gap 7 (5-15); BUN 14 mg/dL (7-18); BUN/Creat Ratio 16.5 RATIO (10-20); Calcium,Total 10.1 mg/dL (8.5-10.1); Chloride 109 mmol/L (98-107); Creatinine, Serum 0.85 mg/dL (0.55-1.02); EST Glomerular Filtration Rate 89 mL/min (>60); Est Glom Filt Rate - Afr Amer 108 mL/min (>60); Estimated Creatinine Clearance 89.65 ml/min; Glucose 107 mg/dL (74-106); Potassium 3.6 mmol/L (3.5-5.1); Sodium Level 140 mmol/L (136-145); Troponin-I HS < 3 pg/mL (3.0-54.0)
[2021-09-07 20:30] VITALS: BP 127/67; PULSE 73; RESP 19; O2SAT 98
[2021-09-07 21:36] VITALS: PULSE 65; RESP 18
== END 2021-09-07 21:37 | disposition home or self-care (01) ==
PROVIDERS: Emergency Provider Emergency Medicine
DX: R09.1 Pleurisy (principal); E66.9 Obesity, unspecified; Z87.891 Personal history of nicotine dependence; Z86.16 Personal history of COVID-19
CPT/HCPCS: 71045; 71275; 80048; 84484; 85025; 85379; 93005; 99284; Q9967; A4216

== ENCOUNTER 2022-01-29 16:12 | Outpatient (RCR) | payer MEDICAID, SELFPAY ==
--- NOTE | 2022-01-29 18:23 | HP.PTEVAL_ITS ---
Patient's Visit Information MAXWELL DICKEY is a 21 year old F referred to Physical Therapy by Dr. Ted Shannon DPM with a diagnosis of SPRAIN OF LIGAMENT LEFT ANKLE. Date of Evaluation: 01/29/22 Physical Therapist: Richie Diaz, PT, Cert MDT, OCS - Visit Plan Frequency: 2x /Week Duration: 6 Weeks Plan: OKAY TO REMOVE BOOT FOR THERAPY. PRECAUTION: *LATEX ALLERGY*. PT INTERVETIONS FLEXABLITY CALF,ROM ANKLE ,STRENGTHNEING ANKLE EX'S STABILIZERS ,PROGRESS TO WB ACTTIVITES/PROPRIOCEPTION ABLE ,US/ESTIM/VASO NEEDED - Subjective This 21 y/o female presents to physical therapy with left ankle sprain. This patient injury left ankle ~ 6weeks ago. Patient injury to ankle step off a high steps with mechanism inversion with immediate pain .and swelling with bruising. Patient also had edema. [facility] with [facility] for 1week. . Then ankle wasn't getting better . Seen [employer] Operations Officer who did x-rays x2 and placed in placed in CAM boot. May do MRI after 6 weeks. Patient is to continue to use CAM boot but okay to remove boot for therapy. Patient plans to RTD next February 04. Patient has pain lateral ankle pain occasional sharp pain. Denies paresthesia/tingling. Patient reports pain with movement . Patient pain affects ability to walk stand affects housework tasks. Pain affects sleeping. Patient has h/o ankle sprain. ALLERGY :*LATEX. SOCIAL: Home 2 children ,SINGLE. VOCATION: none - Pain Left Ankle Pain Intensity (Out of 10): 8 Pain Intensity Range: 10 - Objective POSTURE: Pes Cavus. PALPATION: ATLF,PERNEOUS,CFL,ANTIOR TIB-FIB SYNDEMOSIS. NUERO: denies paresthesia/tingling. GAIT: ambulates with antalgic gait with CAM boot. EDEMA: trimallaeolar 63.3 cm. AROM: dorsiflexion om degrees ,inversion 40 degrees, eversion 5 degrees, plantarflexion 60 degrees. PROPRIOCEPTION: poor. MMT (peak force) : anteriortibialis 6.8,pernoeus 4.7, postertibialis 5.5. SPECIAL TEST: anterior drawer 1+ ,inversion stress test +,talor tilt + - Goals Goal 1:: I with HEP for ankle Goal Time Frame: 4-6 Weeks Goal 2:: Patient to demonstrate 70% improvement with improved function with decrease pain with gait Goal Time Frame: 4-6 Weeks Goal 3:: Patient improve ankle ROM by 5 degrees especially dorsiflexion to improve gait. Goal Time Frame: 4-6 Weeks Goal 4:: Patient to improve strength peak force of ankle stabilizers by 10 or > to improve gait and functiuon. Goal Time Frame: 4-6 Weeks Goal 5:: Patient to normalize gait pattern Goal Time Frame: 4-6 Weeks Goal 6:: Patient to improve LEFS score by 5 points to improve QOL and function. Goal Time Frame: 4-6 Weeks - Rehabilitation Potential Physical Therapy Diagnosis: This patient sprained left ankle ~ 6weeks ago with pain ,edema, weakness and lack of ROM ,poor proprioception impairs gait and function thus benefit from skilled PT Rehabilitation Potential: Good - Anticipated Interventions Patient/Client Instruction: Educate patient on: Condition, Plan of Care For the Purpose of:: To decrease pain, To increase ROM, To improve nutrient delivery to tissue, To increase oxygenation perfusion, To improve muscle performance and motor function, To increase tolerance to activity/condition/position, To improve performance and independence with ADL's, To improve ability of physical actions for home/community/work/leisure, To improve health of tissue, To decrease soft tissue restriction, To increase flexibility/ROM, To reduce risk of recurrence, To prevent re-injury, To improve tolerance to ADL's Therapeutic Exercise to Include: Strength training, Endurance training, Balance training, Agility training, Flexibilty training, Passive ROM, Active ROM Comment: ANKLE /PROPRIOCEPTION For the Purpose of:: To decrease pain, To increase ROM, To improve muscle performance and motor function, To improve ability to perform ADL's, To increase tolerance to activity/condition/position, To improve ability of physical actions for home/community/work/leisure, To improve health of tissue, To decrease soft tissue restriction, To increase flexibility/ROM, To prevent re-injury, To improve tolerance to ADL's TENS: Yes IF ES: Yes Cryotherapy (ice pack, ice massage): Yes Thermo therapy (hot pack): Yes Ultrasound (thermal/non thermal): Yes Vasopneumatic device: Yes For the Purpose of:: To decrease pain, To increase ROM, To improve muscle performance and motor function, To improve ability to perform ADL's, To increase tolerance to activity/condition/position, To improve performance and independence with ADL's, To improve ability of physical actions for home/community/work/leisure, To improve health of tissue, To decrease soft tissue restriction, To increase flexibility/ROM, To improve balance, To prevent re-injury, To improve tolerance to ADL's Thank you for the opportunity to evaluate your patient. For Medicare and Medicare HMO plans, please review the plan of care and approve it. It will need to be FAXED BACK to us at [phone] for Medicare purposes. For Medicare only, by signing this I certify the plan of care. Please let me know if there are questions or concerns regarding this plan of care. Physician Signature: Date:
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
== END 2022-01-29 19:00 | disposition home or self-care (01) ==
LOC: PT 16:12
PROVIDERS: Referring Provider Student in an Organized Health Care Education/Training Program; Visit Provider Student in an Organized Health Care Education/Training Program
DX: S93.492D Sprain of other ligament of left ankle, subsequent encounter (principal)
CPT/HCPCS: 97110; 97161

== ENCOUNTER → 2022-02-19 | Outpatient (CLI) | payer MEDICAID, SELFPAY ==
--- NOTE | 2022-02-19 07:26 | MRI_ITS ---
STUDY: MRI LEFT MIDFOOT REASON FOR EXAM: Female, 21 years old. INJURY TO ANTERIOR TALOFIBULAR, CALCANEOFIBULAR LIGAMENTS AND PERONEAL TENDONS OF THE LEFT FOOT/LEFT ANKLE TECHNIQUE: Standardized fat and water weighted pulse sequences were obtained in all 3 orthogonal planes. COMPARISON: None. FINDINGS: Normal talonavicular articulation. Normal calcaneocuboid articulation. Normal navicular-cuneiform articulations. Normal intercuneiform articulations. Normal first tarsometatarsal articulation. Normal Lisfranc ligament. Normal second and third tarsometatarsal articulations. Normal cuboid fourth and cuboid fifth tarsometatarsal articulation. Normal first through fifth metatarsi. Normal tibialis anterior tendon. Normal extensor hallucis longus tendon. Normal extensor digitorum longus tendons. Normal peroneus longus tendon and distal insertion. Normal peroneus brevis tendon and distal insertion. Normal intrinsic muscles of the mid and forefoot region. Normal extensor digitorum brevis muscle. Mild first, second, and third intermetatarsal space bursitis. Normal subcutis adipose space. MRI/Lower Ext/No Jt/w/o IMPRESSION: Mild first, second, and third intermetatarsal space bursitis. Electronically Signed: Max Mederos MD at 10:15 EDT ,
--- NOTE | 2022-02-19 07:26 | MRI_ITS ---
STUDY: MRI LEFT ANKLE WITHOUT CONTRAST REASON FOR EXAM: Lateral left ankle pain, left ankle sprain 2 months ago, evaluate for lateral ligamentous and peroneal tendon injury. TECHNIQUE: Standardized fat and water weighted pulse sequences were obtained in all 3 orthogonal planes. COMPARISON: Radiographs 12/17/2021. FINDINGS: There is mild edema in the medial and lateral subcutis adipose space. Normal posterior tibialis tendon. Normal flexor digitorum longus tendon. Normal flexor hallucis longus tendon. Normal peroneus longus and brevis tendons. Normal tibialis anterior tendon. Normal extensor hallucis longus tendon. Normal extensor digitorum longus tendons. Normal Achilles tendon and teno-osseous insertion. Normal plantar fascia. Normal plantar calcaneal tubercles. Normal intrinsic muscles of the rearfoot. Normal distal tibiofibular syndesmotic ligamentous complex. There is a chronic sprain with thickening of the anterior talofibular ligament (T2 axial image 15). There is a chronic sprain with thickening of the calcaneofibular ligament (T2 axial image 17). Normal posterior talofibular ligament. Normal subtalar ligaments and sinus tarsi. Normal deltoid ligamentous complexes. Normal plantar calcaneonavicular (spring) ligament. Normal tibiotalar articulation. Normal talar dome. Normal subtalar articulations. Normal talonavicular articulation. Normal calcaneocuboid articulation. Normal navicular-cuneiform articulations. MRI/Lower Ext Joint Only (Routine) IMPRESSION: Chronic sprains of the anterior talofibular and calcaneofibular ligaments. No demonstrated peroneal tendon injury. Electronically Signed: Gibran Lawrence MD at 10:01 EDT ,
== END | disposition home or self-care (01) ==
LOC: MRI 07:20
PROVIDERS: Referring Provider Student in an Organized Health Care Education/Training Program; Visit Provider Student in an Organized Health Care Education/Training Program
DX: S93.492D Sprain of other ligament of left ankle, subsequent encounter (principal); M79.672 Pain in left foot
CPT/HCPCS: 73718; 73721

== ENCOUNTER 2022-10-06 12:30 | Outpatient (RCR) | payer MEDICAID, SELFPAY ==
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
--- NOTE | 2023-01-14 15:34 | HP.PT.NRP ---
MAXWELL DICKEY was seen in my office for initial evaluation on 07/17/22. The following Plan of Care was established for this patient: Initial Frequency: 2x /Week Initial Duration: 4 Weeks Patient/Client Instruction: Educate patient on: Condition, Plan of Care For the Purpose of:: To decrease pain, To increase ROM, To improve muscle performance and motor function, To improve ability to perform ADL's, To increase tolerance to activity/condition/position, To improve ability of physical actions for home/community/work/leisure, To improve health of tissue, To decrease soft tissue restriction, To increase flexibility/ROM Therapeutic Exercise to Include: Strength training, Postural training, Flexibilty training, Active ROM For the Purpose of:: To decrease pain, To increase ROM, To improve ability to perform ADL's, To increase tolerance to activity/condition/position, To improve ability of physical actions for home/community/work/leisure, To improve health of tissue, To decrease soft tissue restriction, To increase flexibility/ROM Manual Therapy Techniques to Include: Soft tissue mobilization For the Purpose of:: To decrease pain, To increase ROM, To increase oxygenation perfusion, To improve health of tissue, To decrease soft tissue restriction TENS: Yes IF ES: Yes Cryotherapy (ice pack, ice massage): Yes Thermo therapy (hot pack): Yes Ultrasound (thermal/non thermal): Yes For the Purpose of:: To decrease pain, To increase ROM, To improve nutrient delivery to tissue, To increase oxygenation perfusion, To improve health of tissue, To decrease soft tissue restriction This patient was last seen in our office . Pertinent comments regarding their Physical therapy will appear below: Patient seen for PT for left shoulder pain focusing on modalities and ROM/strengthening and postural ex's At this point I will be discontinuing this patient from physical therapy. I would be happy to see this patient again in the future if found appropriate by the physician. Thank you! Richie Diaz, PT, Cert MDT, OCS Balance/Gait/Functional tests - Balance/Special Test Scores Quick DASH Score: 6.8175
== END 2022-10-06 19:00 | disposition home or self-care (01) ==
LOC: PT 12:30
PROVIDERS: Referring Provider Physician Assistant; Visit Provider Physician Assistant
DX: S46.912D Strain of unspecified muscle, fascia and tendon at shoulder and upper arm level, left arm, subsequent encounter (principal); S29.019D Strain of muscle and tendon of unspecified wall of thorax, subsequent encounter
CPT/HCPCS: 97035; 97110; 97140; 97161

== ENCOUNTER 2022-10-21 11:05 | Emergency (ER) | payer MEDICAID, SELFPAY ==
[2022-10-21 11:08] VITALS: BP 135/70; PULSE 76; RESP 17; TEMP 36.3; O2SAT 99; BMI 43.4
--- NOTE | 2022-10-21 11:57 | EDS_ITS ---
HPI HPI - URI History of Present Illness Chief Complaint: Shortness of Breath Informant: patient Onset/Context/Timing Onset: Yesterday Context: Gradual Onset Timing: Continuous Quality: Wheezing Location: Chest Worsened by: - (Laying flat) Relieved by: - (Nothing) Associated Symptoms Associated Symptoms: Positive for Nasal Congestion, Headache, Shortness of Breath, Chest Pain and Nonproductive cough; Negative for Sinus Pressure, Myalgias, Nausea, Vomiting, Diarrhea, Hemoptysis or Productive Cough Narrative Narrative: Patient presents with wheezing that began yesterday. Patient states it is gradually gotten worse. Patient states that his worse whenever she lays flat. Patient admits to some shortness of breath with walking. Patient midst to recent upper respiratory infection. Patient states she is having a cough but denies any sputum production. Patient midst to some postnasal drainage and bilateral ear pain. Patient also admits to some sharp pain in the substernal area. Patient states there is also pressure at times. Patient states that she took a home COVID test yesterday which was negative. Patient also admits to a mild headache. ROS ROS ED Constitutional Constitutional ED: Reports sweats; Denies chills or fever(s) Eyes Eyes: Denies blurry vision or change in vision ENT ENT ED: Reports ear pain bilateral and rhinorrhea; Denies sore throat Cardiovascular Cardiovascular: Denies chest pain or palpitations Respiratory/Chest Respiratory/Chest: Reports cough and dyspnea Gastrointestinal Gastrointestinal: Denies nausea or vomiting Genitourinary Genitourinary ED: Denies dysuria or hematuria Musculoskeletal Musculoskeletal: Denies back pain or neck pain Integumentary Denies abscess or rash Neurologic Neurologic: Reports headache(s); Denies weakness Allergic/Immunologic Allergic/Immunologic ED: Denies mouth swelling or urticaria [facility] Medical History Acute lumbar myofascial strain Acute thoracic myofascial strain Arthritis Asthma Contact with and (suspected) exposure to other viral communicable diseases COVID-19 Encounter for screening for COVID-19 False labor before 37 completed weeks of gestation Family history of hearing loss at age younger than 7 years history of ear tubes Left ankle sprain Left shoulder strain Lumbar radiculopathy, acute Seasonal allergies Shortness of breath Sprain of left foot URI (upper respiratory infection) Home Medications cyclobenzaprine 10 mg tablet 10 mg PO TID PRN muscle spasm #30 tabs 06/15/22 [Rx Last Taken Unknown] ibuprofen 400 mg tablet 400 mg PO PRN PRN Pain 10/21/22 [History Last Taken Unknown] Allergy/AdvReac Type Severity Reaction Status Date / Time bee venom protein (honey bee) Allergy Severe Anaphylaxis Verified 10/21/22 11:07 latex Allergy Mild Rash Verified 10/21/22 11:07 Penicillins AdvReac Vomiting Verified 10/21/22 11:07 Surgical History History of surgery Social History Smoking Status: Former smoker alcohol intake: never EXAM Physical Exam Const Vital Signs: 10/21/22 11:08 10/21/22 12:09 10/21/22 12:28 Temperature 97.3 F L Temperature Source Temporal Pulse Rate 76 80 Respiratory Rate 17 17 Respiratory Effort Normal Non-Labored Respiratory Depth Normal Respiratory Pattern Normal Normal Blood Pressure 135/70 H Blood Pressure Mean 91 Pulse Ox 99 Oxygen Delivery Method Room Air Room Air 10/21/22 11:08 Temperature 97.3 F L Temperature Source Temporal Pulse Rate 76 Respiratory Rate 17 Respiratory Effort Respiratory Depth Respiratory Pattern Blood Pressure 135/70 H Blood Pressure Mean 91 Pulse Ox 99 Oxygen Delivery Method Room Air Positive well nourished, well developed and obese General Appearance ED: well developed and NAD Nutritional Appearance: obese HEENT Reports moist mucous membranes Neck supple and no JVD Resp normal respiratory effort and clear to auscultation bilaterally Cardio regular rate, regular rhythm and no murmurs GI normal to inspection, nondistended, normoactive bowel sounds and non-tender Palpation: soft Extremity normal to inspection General Extremety ED: Negative for edema or tenderness General Extremity: Negative for edema Neuro oriented x3, CN's II-XII intact bilaterally and no sensory deficits noted Sensorium / Orientation: alert Motor Exam: strength 5/5 throughout Psych mental status grossly normal Skin no rashes or lesions noted MDM MDM MDM Narrative Medical decision making narrative: Differential diagnosis includes viral upper respiratory infection, bronchitis, pneumonia, and influenza. Chest x-ray will be obtained to assess for pneumonia, pneumothorax, and congestive heart failure. Influenza antigen will be obtained to assess for influenza infection. Lab Data Lab results narrative: Influenza A and influenza B rapid antigens were reviewed and were negative. Radiography Diagnostic Testing: Clinical Impression(s) from Imaging Studies Chest X-Ray 10/21/22 12:23 IMPRESSION: Normal x-ray examination of the chest. Electronically Signed: Vasiliy Kim MD at 12:35 EST , PA and lateral chest x-ray was obtained. There are 2 views. On my independent interpretation, lung gardner are clear. There is normal cardiac silhouette. Bony thorax is normal. There is no acute process noted. Radiologist also interpreted the x-ray and agrees. Treatment and Re-Evaluation Narrative: Patient was given a DuoNeb aerosol here. Patient is feeling better on reevaluation. Patient was advised of her findings. Patient was instructed to use [id number] Tylenol as needed for any aches or fevers. Patient was instructed to use [id number] decongestants and cough medications as needed. Patient was instructed to drink plenty of fluids. Patient was instructed to follow-up with her primary care physician in 5 to 7 days. Patient understood and was agreeable with the plan. All questions were answered. Discharge Plan Triage Chief Complaint: Shortness of Breath ED Provider: Bacilio Aceves Dx/Rx/DC Orders Clinical Impression: Viral upper respiratory tract infection with cough, Morbid obesity with BMI of 40.0-44.9, adult Instructions: ED URI, Viral, No Abx (Adult) Prescriptions: No Action cyclobenzaprine 10 mg tablet 10 mg PO TID PRN (Reason: muscle spasm) Qty: 30 0RF ibuprofen 400 mg tablet 400 mg PO PRN PRN (Reason: Pain) Primary Care Provider: Kacey Echols NP Referrals: Kacey Echols NP, [facility] [Primary Care Provider] - 5-7 Days Disposition Disposition: Home, Self Care
[2022-10-21] MEDS: Ipratropium/Albuterol Sulfate 3 ML AMPUL.NEB INHALATION (12:07)
[2022-10-21 12:09] VITALS: PULSE 80; RESP 17
--- NOTE | 2022-10-21 12:23 | RAD_ITS ---
STUDY: X-RAY CHEST REASON FOR EXAM: Female, 22 years old. Cough TECHNIQUE: PA and lateral views of the chest. COMPARISON: Comparison is made with prior study 09/07/2021. FINDINGS: The lungs are clear and expanded. There is no demonstrated pleural abnormality. Normal size heart. Normal mediastinum and jeanne. Normal visualized pulmonary arteries. Normal visualized aortic arch and descending thoracic aorta. Normal visualized thoracic spine. Normal visualized ribs, clavicles, and shoulders. There is no demonstrated abnormality of the visualized soft tissue structures of the upper abdomen. RAD/Chest PA and Lateral IMPRESSION: Normal x-ray examination of the chest. Electronically Signed: Vasiliy Kim MD at 12:35 EST ,
[2022-10-21 12:28] VITALS: O2SAT 99
[2022-10-21 13:44] VITALS: PULSE 84; RESP 17; O2SAT 97
== END 2022-10-21 13:45 | disposition home or self-care (01) ==
PROVIDERS: Emergency Provider Emergency Medicine; PCP Registered Nurse; Visit Provider Emergency Medicine
DX: J06.9 Acute upper respiratory infection, unspecified (principal); E66.01 Morbid (severe) obesity due to excess calories; Z68.41 Body mass index [BMI] 40.0-44.9, adult; Z87.891 Personal history of nicotine dependence; Z86.16 Personal history of COVID-19
CPT/HCPCS: 71046; 87804; 94640; 99282

== ENCOUNTER → 2023-02-24 | Outpatient (CLI) | payer MEDICAID, SELFPAY ==
[2023-02-24 11:32] LABS: Absolute Lymphocyte Count 2.19 X10^3/uL (0.83-4.51); Basophil# 0.05 X10^3/uL; Basophil% 0.7 % (0-1); Eosinophil# 0.16 X10^3/uL; Eosinophils% 2.4 % (0-5); Hematocrit 42.9 % (37-47); Hemoglobin 13.9 g/dL (12.0-15.0); Lymphocyte # 2.19 X10^3/ul (0.83-4.51); Lymphocyte % 32.3 % (19-41); Mean Corp Hgb Conc 32.4 g/dL (32-36); Mean Corpuscular Hgb 29.8 pg (27.0-32.0); Mean Corpuscular Volume 91.9 fL (81-99); Monocyte# 0.39 X10^3/uL; Monocyte% 5.7 % (0-10); NRBC Flagged by Analyzer 0 % (0-5); Neutrophil # 3.97 X10^3/uL (2.7-7.7); Neutrophil % 58.5 % (47-70); Platelet Count 254 K/mm3 (150-450); RBC Distribution Width CV 12.4 % (11.6-14.6); RBC Distribution Width SD 42.2 fl (35.1-43.9); Red Blood Count 4.67 M/mm3 (4.2-5.4); White Blood Count 6.8 K/mm3 (4.4-11.0)
[2023-02-28 09:07] LABS: Alternaria tenuis <0.10 kU/L (Class 0); Ash, White <0.10 kU/L (Class 0); Aspergillus fumigatus <0.10 kU/L (Class 0); Bermuda Grass <0.10 kU/L (Class 0); Birch <0.10 kU/L (Class 0); Black Walnut <0.10 kU/L (Class 0); Cat Hair / Dander,Stand <0.10 kU/L (Class 0); Cedar, Mountain <0.10 kU/L (Class 0); Cladosporium herbarum <0.10 kU/L (Class 0); Cockroach, American <0.10 kU/L (Class 0); Cottonwood <0.10 kU/L (Class 0); D farinae Mite <0.10 kU/L (Class 0); D pteronyssinus <0.10 kU/L (Class 0); Dog Epithelia <0.10 kU/L (Class 0); Elm, American White <0.10 kU/L (Class 0); Immunoglobulin E 23 IU/mL (6-495); Maple/Box Elder <0.10 kU/L (Class 0); Mouse Urine <0.10 kU/L (Class 0); Mulberry, White <0.10 kU/L (Class 0); Oak, White <0.10 kU/L (Class 0); Pecan <0.10 kU/L (Class 0); Penicillium Notatum <0.10 kU/L (Class 0); Pigweed, Rough <0.10 kU/L (Class 0); Ragweed, Short/Common <0.10 kU/L (Class 0); Russian Thistle <0.10 kU/L (Class 0); Sheep Sorrel <0.10 kU/L (Class 0); Sycamore, American <0.10 kU/L (Class 0); Timothy Grass <0.10 kU/L (Class 0)
[2023-03-01 18:07] LABS: Immunoglobulin E 23 IU/mL (6-495)
== END | disposition home or self-care (01) ==
PROVIDERS: PCP Registered Nurse; Referring Provider Internal Medicine; Visit Provider Internal Medicine
DX: J45.909 Unspecified asthma, uncomplicated (principal)
CPT/HCPCS: 36415; 82785; 85025; 86003

== ENCOUNTER → 2023-03-01 | Outpatient (CLI) | payer MEDICAID, SELFPAY ==
--- NOTE | 2023-03-02 05:56 | PFTCOMP ---
COMPLETE PULMONARY FUNCTION TEST INTERPRETATION Brief HPI: Patient is a 22-year-old female, currently under the care of Dr. Fontenot, who presents to [facility] for complete pulmonary function tests secondary to diagnosis of asthma. Respiratory therapist reports good effort and reproducible results. Interpretation: Forced expiration spirometry shows a mild large airways obstructive ventilatory defect with an FEV1 of 109% predicted. There is a significant bronchodilator response in FEV1 by strict ATS criteria. Spirograms are of good quality and plateau normally. The respiratory flow volume loop shows a normal pattern. Lung volumes by body plethysmography show a normal total lung capacity at 4.7 L, 87% predicted. All other lung volumes are within normal limits. Diffusion capacity by carbon monoxide is normal at 80% predicted. The airway resistance is elevated. No previous pulmonary function tests were available for review. Impression: Fully reversible mild large airways obstructive ventilatory defect and a pattern consistent with patient's diagnosis of asthma
== END | disposition home or self-care (01) ==
LOC: PSN 08:10
PROVIDERS: PCP Registered Nurse; Referring Provider Internal Medicine; Visit Provider Internal Medicine
DX: J45.909 Unspecified asthma, uncomplicated (principal)
CPT/HCPCS: 94060; 94726; 94729

== ENCOUNTER 2023-06-23 13:48 | Emergency (ER) | payer MEDICAID, SELFPAY ==
[2023-06-23 13:48] VITALS: BP 156/86; PULSE 74; RESP 14; TEMP 36.4; O2SAT 98; BMI 35.2
--- NOTE | 2023-06-23 14:11 | EX.ED.VIS.HA ---
HPI History of Present Illness Chief Complaint: Headache Informant: patient Onset/Context/Timing Onset: Today and Yesterday Quality -Headache: Positive for Similar Prior Headaches Location: Bilateral squeezing. Current Severity: Moderate Maximum Severity: Moderate Associated Symptoms/Injury Associated Symptoms: Positive for Nausea and Vomiting; Negative for Sinus Pressure, Numbness, Tingling, Preceding Aura, Visual Changes or Visual Loss Injury - CORDERO: Negative for Direct Trauma, Fall or Assault Narrative Narrative: 23-year-old female history of headaches. Mom has history of migraines. No family history of intracranial bleeds or aneurysms or brain surgery. States she awoke yesterday with this headache. Headache started yesterday morning. It feels like a squeezing on both sides of her head. She is photophobic with it. It is behind both eyes. She has had associated nausea and vomiting. No falls or head trauma. No fever. No sinus congestion. She is on no blood thinners. Is not . Currently she is on no medications. Prior similar symptoms: Yes Recent Illness/Hospitalization: No PFSH PFSH Medical History Acute bronchitis, unspecified Acute lumbar myofascial strain Acute thoracic myofascial strain Arthritis Asthma Asthma exacerbation Contact with and (suspected) exposure to other viral communicable diseases COVID-19 Encounter for screening for COVID-19 False labor before 37 completed weeks of gestation Family history of hearing loss at age younger than 7 years history of ear tubes Left ankle sprain Left shoulder strain Lumbar radiculopathy, acute Seasonal allergies Shortness of breath Smoker within last 12 months Sprain of left foot URI (upper respiratory infection) Home Medications albuterol sulfate 90 mcg/actuation aerosol inhaler (Ventolin HFA) 2 puff inhalation Q6H PRN 01/04/23 [History Last Taken Unknown] bupropion HCl 150 mg 24 hr tablet, extended release 150 mg PO DAILY 01/04/23 [History Last Taken Unknown] montelukast 10 mg tablet 10 mg PO DAILY 01/04/23 [History Last Taken Unknown] inhalational spacing device (Aerochamber MV spacer) #1 ea 02/24/23 [Rx Last Taken Unknown] Allergy/AdvReac Type Severity Reaction Status Date / Time bee venom protein (honey bee) Allergy Severe Anaphylaxis Verified 06/23/23 13:48 latex Allergy Mild Rash Verified 06/23/23 13:48 Penicillins AdvReac Vomiting Verified 06/23/23 13:48 Surgical History History of surgery Social History Smoking Status: Former smoker how long ago did patient quit smokin alcohol intake: never ROS ROS ED ROS Narrative Headache with nausea and vomiting. Review of Systems ROS Unobtainable: Denies due to encephalopathy Constitutional Constitutional ED: Denies chills or fever(s) Eyes Eyes: Denies blurry vision ENT ENT ED: Denies ear pain Cardiovascular Cardiovascular: Denies chest pain Respiratory/Chest Respiratory/Chest: Denies cough or dyspnea Gastrointestinal Gastrointestinal: Reports nausea and vomiting; Denies abdominal pain, constipation, diarrhea or melena Genitourinary Genitourinary ED: Denies dysuria or hematuria Musculoskeletal Musculoskeletal: Denies arthralgias Integumentary Denies abscess Neurologic Neurologic: Reports headache(s) Psychiatric Psychiatric: Denies anxiety Endocrine Endocrinology: Denies polydipsia or polyphagia Hematologic/Lymphatic Hematologic/Lymphatic: Denies easy bleeding, easy bruising or lymphadenopathy Allergic/Immunologic Allergic/Immunologic ED: Denies mouth swelling, tongue swelling or urticaria EXAM Physical Exam Narrative Exam Narrative: 23-year-old female vital signs stable afebrile does not look septic toxic. No distress. Sitting upright in bed. No one else in the room. H EENT exam unremarkable. Atraumatic. Pupils round react light. No facial droop. Normal speech. No sinus pressure. No trauma to her face or scalp. Neck nontender. No meningismus. Full range of motion. Able to touch chin to chest. Lungs clear to auscultation bilaterally. Heart regular rhythm no murmur rate about 75. Abdomen soft nontender. Moves all 4 extremities. 5?5 trauma manager strength. Dorsi plantarflexion intact. Neurologic exam normal. NIH score is 0. Fingertip to nose and [id number] within normal limits. Const Vital Signs: 06/23/23 13:48 06/23/23 16:15 Temperature 97.6 F L Temperature Source Temporal Pulse Rate 74 76 Respiratory Rate 14 21 H Blood Pressure 156/86 H 148/99 H Blood Pressure Mean 109 115 Pulse Ox 98 100 Oxygen Delivery Method Room Air Room Air Positive well nourished and well developed; Negative for cachectic, contractures or unkempt General Appearance ED: well developed and NAD; Negative for unkempt, cachectic, contractures, cyanotic, diaphoretic or pallor Nutritional Appearance: Negative for cachectic HEENT Reports normocephalic and moist mucous membranes atraumatic; Negative for trauma, tenderness, temporal artery tenderness or vesicular rash Face and Sinus: Negative for sinus tenderness Eyes PERRL and EOMs intact bilaterally General Eye ED: Negative for pale conjunctiva or scleral icterus Neck no lymphadenopathy, supple, no meningeal signs and no JVD General: Negative for tenderness Resp normal respiratory effort and clear to auscultation bilaterally Effort and Inspection: Negative for retractions Auscultation: Negative for rales, rhonchi or wheezes Cardio regular rate, regular rhythm, S1 normal heart sound, S2 normal heart sound and no murmurs GI non-tender and non-distended Auscultation: normoactive bowel sounds Palpation: soft; Negative for firm or tender Back/Spine no CVA tenderness General Back: Negative for CVA tenderness Cervical Spine: Negative for cervical spine tenderness Thoracic Spine / Upper Back: Negative for thoracic spinal tenderness Lumbar Spine / Lower Back: Negative for lumbar spinal tenderness Extremity normal to inspection and full ROM General Extremety ED: Negative for edema or tenderness General Extremity: Negative for edema Neuro CN's II-XII intact bilaterally and no sensory deficits noted Sensorium / Orientation: awake, alert, oriented to person, oriented to place and oriented to time; Negative for orientation impaired, lethargic or stuporous Coordination / Balance: [id number] test normal Speech: speech normal Motor Exam: strength 5/5 throughout Psych mental status grossly normal Appearance: Negative for unkempt Attitude: No agitated Mood & Affect: Negative for depressed, anxious or tearful Skin General Skin Exam: elasticity normal; Negative for jaundice or pallor Lesions: no lesions Rashes: no rashes MDM MDM MDM Narrative Medical decision making narrative: Looks [id number] with a headache with a history of headaches. Her exam is normal. Her exam is completely normal. I do not think she needs imaging. She has had headaches for years. She was treated with IV fluids, Toradol, Zofran and Benadryl and reassess. Exam patient is doing well at 4:05 PM. Some but not significant relief of her headache. Neurologic exam remains normal. She states in the past she used THC for her headaches. But for court order she cannot use that anymore. I explained that we do not use that in emergency department. We will try Imitrex. Elier exam patient is feeling well headache resolved 5:05 PM. Neurologic exam remains normal. She will be discharged home. History & Record Review Discussion w/independent historian: Patient Additional record(s) reviewed:: Prior inpatient record, Prior outpatient record, Prior ED visit and Prior labs Discharge Plan Triage Chief Complaint: Headache ED Provider: Gurmeet Hough Dx/Rx/DC Orders Clinical Impression: Headache Instructions: ED Headache Unspecified Prescriptions: No Action bupropion HCl 150 mg tablet extended release 24 hr 150 mg PO DAILY Patient Comments: TAKE 1 TABLET BY MOUTH DAILY montelukast 10 mg tablet 10 mg PO DAILY albuterol sulfate [Ventolin HFA] 90 mcg/actuation HFA aerosol inhaler 2 puff inhalation Q6H PRN (DME) Aerochamber MV Spacer See Rx Instructions .ROUTE .MEDSUPPLY Qty: 1 0RF Rx Instructions: As directed Primary Care Provider: Kacey Echols NP Referrals: Kacey Echols NP, DEVELOPMENTAL EDUCATION INSTRUCTOR-C [Primary Care Provider] - As Needed Activity Restrictions/Additional Instructions: Motrin and Tylenol for pain. Follow-up with your doctor as needed. Disposition Disposition: Home, Self Care
[2023-06-23] MEDS: 0.9% Normal Saline (1000mL) 1,000 ML 1000 ML IV (14:39)
[2023-06-23] MEDS: Ondansetron 4 MG/2 ML Vial IV (14:39)
[2023-06-23] MEDS: Ketorolac 30 MG/ML Syringe IV (14:39)
[2023-06-23] MEDS: DiphenhydrAMINE 50 MG/ML Syringe 25 MG IV (14:39)
[2023-06-23] MEDS: SUMAtriptan 6 MG/0.5 ML Vial SC (16:11)
[2023-06-23 16:15] VITALS: BP 148/99; PULSE 76; RESP 21; O2SAT 100
[2023-06-23 17:15] VITALS: BP 128/72; RESP 16
== END 2023-06-23 17:16 | disposition home or self-care (01) ==
PROVIDERS: Emergency Provider Emergency Medicine; PCP Registered Nurse; Visit Provider Emergency Medicine
DX: R51.9 Headache, unspecified (principal); Z86.16 Personal history of COVID-19; Z87.891 Personal history of nicotine dependence
CPT/HCPCS: 96361; 96374; 96375; 99283; J7030; A4216; J2405; J3030

== ENCOUNTER 2025-08-03 11:13 | Emergency (ER) | payer SELFPAY ==
[2025-08-03 11:13] VITALS: BP 136/87; PULSE 86; RESP 14; TEMP 36.6; O2SAT 98; BMI 41.4
--- NOTE | 2025-08-03 12:05 | EX.ED.DYSGE1 ---
HPI History of Present Illness Chief Complaint: Back Narrative Narrative: This is a 25-year-old female past medical history of asthma, chronic low back pain who presented to the emergency department chief complaint of low back pain. States that her back has been VoLumen since back in June again ever since she had bronchitis and she is coughing. States that she recently picked her daughter up to help her wash her hands and noted that she developed worsening back pain ever since then. Patient states that she has been urinating normally for self and having normal bowel movements. Patient states that she went to [facility] yesterday and had pain medication injected in her hip and was sent home. States that she was given prescriptions and she states that she not pick them up this morning she drove here instead. States that she has not any imaging her back recently. She states that she is concerned that something else is going on. [facility] Medical History Smoker within last 12 months Asthma exacerbation Acute bronchitis, unspecified Contact with and (suspected) exposure to other viral communicable diseases URI (upper respiratory infection) Acute thoracic myofascial strain Left shoulder strain Lumbar radiculopathy, acute Acute lumbar myofascial strain Sprain of left foot Left ankle sprain Family history of hearing loss at age younger than 7 years COVID-19 Encounter for screening for COVID-19 False labor before 37 completed weeks of gestation Seasonal allergies history of ear tubes Asthma Shortness of breath Arthritis Home Medications ?Medication ?Instructions ?Recorded ?Last Taken ?Type NK 08/03/25 Unknown History Allergy/AdvReac Type Severity Reaction Status Date / Time bee venom protein (honey bee) Allergy Severe Anaphylaxis Verified 08/03/25 11:14 latex Allergy Mild Rash Verified 08/03/25 11:14 Penicillins AdvReac Vomiting Verified 08/03/25 11:14 Surgical History History of surgery Social History Smoking Status: Former smoker how long ago did patient quit smokin alcohol intake: never ROS ROS ED ROS Narrative Constitutional: Denies any fevers or chills Cardiovascular: Denies chest pain Respiratory: Denies shortness of breath Abdomen: Denies abdominal pain nausea vomit diarrhea : Denies any urinary symptoms Neurological: Complains of pain shooting down her left leg into her toes as noted above Musculoskeletal: Complains of back pain as noted above Skin: Denies any rashes or lesions EXAM Physical Exam Narrative Exam Narrative: General: Patient lying in bed rest comfortably did not appear to be in acute distress Head: Atraumatic, normocephalic Eyes: PERRL bilaterally, EOMI bilaterally, no conjunctival injection noted Neck: Soft, supple, trachea midline Cardiovascular: Regular rate and rhythm Respiratory: Clear to auscultation bilaterally Abdomen: Soft, nondistended, nontender to palpation Extremities: +5/5 strength noted in the bilateral lower extremities Neurological: Patient following commands knew that she was at [facility] the year is 2024 sensation grossly intact no saddle anesthesia noted Skin: Warm, dry, intact no rashes or lesions noted Const Vital Signs: 08/03/25 11:13 Temperature 98 F Temperature Source Temporal Pulse Rate 86 Respiratory Rate 14 Blood Pressure 136/87 H Blood Pressure Mean 103 Pulse Ox 98 Oxygen Delivery Method Room Air MDM MDM MDM Narrative Medical decision making narrative: Patient is a 25-year-old female who presented to the emergency department chief complaint of back pain. On the differential diagnose includes but not limited to compression fracture, herniated disc, UTI, pyelonephritis, . Once the workup is obtained and reviewed she will be reevaluated. Patient will be given a gram of Tylenol. Patient did drive here and does not have a ride home therefore we will be limited on pain medication. Patient urinalysis reviewed and showed 25 occult blood no evidence of infection. Cystoscopy negative. Given the blood in her urine with the back pain I discontinued the lumbar x-ray and change the CT and pelvis out contrast. This was reviewed and showed no acute abnormalities noted. I reevaluate the patient she is feeling better she like go home at this point time. She was vies to use prescriptions I was already sent from physician at [facility]. She is vies follow-up with #7 return with worsening symptoms or concerns. She is agreeable to plan all questions were answered she was discharged home stable condition Lab Data Labs: Laboratory Results - last 24 hr 08/03/25 12:05 Urine Color Yellow Urine Clarity Clear Urine pH 7.0 Ur Specific Radiant 1.015 Urine Protein 15 H Urine Glucose (UA) Normal Urine Ketones Negative Urine Occult Blood 25 H Urine Nitrite Negative Urine Bilirubin Negative Urine Urobilinogen Normal Ur Leukocyte Esterase Negative Urine RBC 0 SEEN Urine WBC 0 SEEN Ur Squamous Epith Cells 0-5 SEEN Urine Bacteria 0 SEEN Urine Mucus 1+ Urine Test Negative Radiography Diagnostic Testing: Clinical Impression(s) from Imaging Studies Abdomen/Pelvis CT 08/03/25 12:43 IMPRESSION: No acute abnormality is seen. Reading Location: [id number] Discharge Plan Triage Chief Complaint: Back ED Provider: Robinson Martin Dx/Rx/DC Orders Clinical Impression: Back pain, History of asthma Prescriptions: No Action NK Primary Care Provider: Kacey Echols NP Referrals: Kacey Echols NP, [facility] RADAR OPERATOR/NAVIGATOR-C [Primary Care Provider, Family Practice] Activity Restrictions/Additional Instructions: Follow-up with your doctor in outpatient setting. Use prescriptions as prescribed. Return with worsening symptoms or any concerns Print Language: American Disposition Disposition: Home, Self Care
[2025-08-03 12:16] LABS: Red Blood Cells-Urine 0 SEEN /hpf (0-5)
[2025-08-03 12:21] LABS: Color, Urine Yellow (Yellow); Glucose, Dipstick Normal (Normal); Ketone-Dipstick Negative (Negative); Leukocyte Esterase-Dipstick Negative /ul (Negative); Nitrite-Dipstick Negative (Negative); Occult Blood-Urine 25 /ul (Negative); Protein-Dipstick 15 mg/dl (Negative); Specific Gravity, Urine 1.015 (1.002-1.030); Urine Bilirubin Dipstick Negative (Negative)
[2025-08-03 12:39] LABS: Internal QC Validated? YES +Cl - CLEAR BKGD; Mucous, Urine 1+ /hpf (<or=2+); Pregnancy, Urine Negative Negative; Record Kit Lot#,Urine Preg 980607; Squamous Epithelial Cells - UA 0-5 SEEN /hpf (5-10)
--- NOTE | 2025-08-03 12:43 | CT_ITS ---
PROCEDURE: ABDOMEN/PELVIS WITHOUT CONT 08/03/2025 REASON FOR EXAM: BACK PAIN Lifting injury. TECHNIQUE: Procedure Code: [id number] Modality: CT Procedure: ABDOMEN/PELVIS WITHOUT CONT Noncontrast technique limits evaluation of the abdominal and pelvic viscera. Coronal and Sagittal reconstruction series were provided. One or more dose reduction techniques were used (e.g., Automated exposure control, adjustment of the mA and/or kV according to patient size, use of iterative reconstruction technique). RADIATION DOSE SUMMARY: CTDlvol: 19.31 mGy DLP: 969.88 mGycm COMPARISON: None FINDINGS: Lung bases: Mild dependent atelectasis Liver: Normal size. No obvious mass. Gallbladder: Unremarkable. Spleen: Normal size. Pancreas: Normal size. No surrounding inflammation. Adrenals: Unremarkable Kidneys: No urolithiasis. No hydronephrosis. Bladder: Unremarkable Reproductive Organs: Normal uterine size and contour. Ovaries are unremarkable. Bowel: Scattered sigmoid diverticula. Appendix: Unremarkable Lymph nodes: Unremarkable. Vasculature: The abdominal aorta and IVC contours are normal. Noncontrast technique limits evaluation. Peritoneum / Retroperitoneum: Unremarkable Bones: Straightening of the normal lumbar lordosis most likely secondary to muscular spasm. CT/Abdomen/Pelvis without Cont IMPRESSION: No acute abnormality is seen. Reading Location: [id number]
[2025-08-03] MEDS: Ketorolac 30 MG/ML Syringe IM (13:08)
== END 2025-08-03 15:41 | disposition home or self-care (01) ==
PROVIDERS: Emergency Provider Emergency Medicine; PCP Registered Nurse; Visit Provider Emergency Medicine
DX: M54.9 Dorsalgia, unspecified (principal); Z87.891 Personal history of nicotine dependence; Z87.09 Personal history of other diseases of the respiratory system
CPT/HCPCS: 74176; 81001; 81025; 96374; 96376; 99282